=== PATIENT | female | born 1960 | race Caucasian/White ===

== ENCOUNTER 2017-09-27 | Emergency (ER) | payer MEDICARE ==
[2015-06-22 14:33] VITALS: BMI 31.1
[~2017-09-27] MED LIST: AMBIEN10 MG PO; ATIVAN1 MG PO; CYCLOBENZAPRINE10 MG PO; EPIPEN0.3 MG/0.3 IM; FLUTICASONE PRO16 GM NS; HYDROCHLOROTHIA25 MG PO; LATUDA40 MG PO; MARINOL5 MG PO; MAXZIDE-25 MG T1 TAB PO; MEDROL DOSE PACK4 MG PO; NEURONTIN 300300 MG PO; NORCO 5/325 TAB1 TA1 PO; NUCYNTA50 MG PO; TALWIN NX1 TAB PO; VENTOLIN HFA18 GM INH; ZETIA10 MG PO; ZOLOFT100 MG PO
[2017-09-27 00:30] LABS: HEMATOCRIT 44.2 % (36.0-48.0); HEMOGLOBIN 15.1 g/dL (12-16); MCH 32.3 pg (26.0-34.0); MCHC 34.2 g/dL (31.0-37.0); MCV 94.6 fL (80.0-100.0); MEAN PLATELET VOLUME 8.9 fL (7.4-10.4); NEUTROPHILS 61.6 % (40-80); PLATELET COUNT 252 10x3/uL (130-400); RBC 4.67 10x6/uL (4.00-5.40); RDW 13.1 % (11.5-14.5); WBC 10.9 10x3/uL (4.8-10.8)
[2017-09-27 00:53] LABS: ALBUMIN 3.6 g/dL (3.4-5.0); ALKALINE PHOSPHATASE 163 U/L (46-116); ALT (SGPT) 32 U/L (10-68); CALC OSMOLALITY 282 mosm/kg (275-300); CARBON DIOXIDE 30.8 mmol/L (21.0-32.0); CHLORIDE - SERUM 105 mmol/L (98-107); CREATININE - SERUM 0.6 mg/dL (0.6-1.3); GLUCOSE 105 mg/dL (74-106); PROTEIN - SERUM 7.3 g/dL (6.4-8.2); SODIUM 143 mmol/L (136-145); UREA NITROGEN 8 mg/dL (7-18); eGFR NON AFRICAN AMERICAN > 90 mL/min (90-120)
[2017-09-27 01:05] LABS: CHOL - HDL RATIO 8.4 ratio (2.3-4.1); CHOLESTEROL, TOTAL 268 mg/dL (0-200); CKMB 0.4 U/L (0.0-3.6); CREATINE KINASE 60 UL (21-215); HDL CHOLESTEROL 32 mg/dL (32-96); LDL CHOLESTEROL 196 mg/dL (0-100); LDL-HDL RATIO 6.1 ratio (1.5-3.5); PRO BNP 63 pg/mL (0-125); TRIGLYCERIDE 201 mg/dL (30-200); TROPONIN-I < 0.017 ng/mL (0.000-0.060)
[2017-09-27 01:36] LABS: APPEARANCE CLEAR (CLEAR); BILIRUBIN NEGATIVE (NEGATIVE); COLOR YELLOW (YELLOW); GLUCOSE NEGATIVE (NEGATIVE); KETONE NEGATIVE (NEGATIVE); NITRITE NEGATIVE (NEGATIVE); PROTEIN NEGATIVE (NEGATIVE); UROBILINOGEN NORMAL (NORMAL)
[2017-09-27 01:37] LABS: BACTERIA FEW /hpf (NONE SEEN); EPITHELIAL CELLS 0-5 /hpf (0-5); RED CELLS - URINE 0-5 /hpf (0-5); WHITE CELLS - URINE 0-5 /hpf (0-5)
== END 2017-09-27 04:35 | disposition home or self-care (01) ==
LOC: D.ER
PROVIDERS: Family Medicine
DX: M94.0 Chondrocostal junction syndrome [Tietze] (principal); F17.200 Nicotine dependence, unspecified, uncomplicated

== ENCOUNTER 2018-03-02 08:00 | Outpatient (CLI) | payer MEDICARE ==
[2015-06-22 14:33] VITALS: BMI 31.1
== END 2018-03-02 11:18 | disposition home or self-care (01) ==
LOC: D.MAMMO 08:00
DX: Z12.31 Encounter for screening mammogram for malignant neoplasm of breast (principal)

== ENCOUNTER 2019-07-15 17:33 | Observation (INO) | payer MEDICARE ==
[~2019-07-15] VITALS: Ht 152.4 cm; Wt 72.3 kg
--- NOTE | ~2019-07-15 | HEMODYNAMI ---
PATIENT:CARMELO SANABRIA MEDICAL RECORD: [id number] : 56 LOCATION[id number] ADMISSION DATE: 07/15/19 Generatedon:07/16/201915:57 Patient name: CARMELO SANABRIA Patient #: [id number] SSN: DO B: 1960 Date of study: 07/16/2019 Page: Of Hemodynamic Procedure Report Patient Data Patient Demographics Procedure consent was obtained First Name: CARMELO Gender: Female Last Name: DANIELE : 1960 Middle Initial: CRUZ Age: 59 year(s) Patient #: [id number] Race: Additional ID: [id number] Contact details Address: [place] [address] State: [place] City: [place] Zip code: [address] Past Medical History Allergies Allergen Reaction Date Comments Reported Other allergy 07/16/2019 BUPIVICAINE, LIDOCAINE, DILAUDID, DEMEROL, TYLENOL FENTANYL, HYRDROCONE, NSAIDS, OXYCODONE, PCN, TRAMADOL, TIZANADINE, ESCITALOPRAM, PLAVIX Admission Admission Data Admission Date: 07/15/2019 Admission Time: 21:01 Arrival Date: 07/16/2019 Arrival Time: 0:00 Room #: [facility] Height (in.): 60 BSA: 1.69 (m2) Height (cm.): 152.4 BMI: 31 (kg/m2) Weight (lbs.): 158.73 Weight (kg.): 72 Lab Results Lab Result Date: 07/16/2019 Lab Result Time: 0:00 Biochemistry Name Units Result Min Max BUN mg/dl 10 --(-*--)-- 7 18 Creatinine mg/dl 0.8 --(-*--)-- 0.6 1.3 eGFR ml/min 76.69328 *-(----)-- 90 120 NONAFRICAN CBC Name Units Result Min Max Hematocrit % 46.9 --(-*--)-- 42 54 Hemoglobin g/dl 15.4 --(-*--)-- 13.5 17.5 Procedure Procedure Types Cath Procedure Diagnostic Procedure [facility] w/Coronaries Sedation Charges Moderate Sedation up to 15 minutes PCI Procedure Coronary Stent Coronary Stent Initial x2 Procedure Description Procedure Date Procedure Date: 07/16/2019 Procedure Start Time: 15:23 Procedure End Time: 15:51 Procedure Staff Name Function Sung Jacobson MD Performing Physician Roopa Nava RT Monitor Mirian Gallagher RT Scrub Tc Gordon RN Nurse Procedure Data Cath Procedure Fluoroscopy Diagnostic fluoroscopy Total fluoroscopy Time: 6.4 time: 6.4 min min Diagnostic fluoroscopy Total fluoroscopy dose: 602 dose: 602 mGy mGy Contrast Material Contrast Material Type Amount (ml) Isovue 300 138 Entry Location Entry Primary Successful Side Size Upsize Upsize Entry Closure Greenberg ccessful Closure Location (Fr) 1 (Fr) 2 (Fr) Remarks Device Remarks Radial Right 6 Fr Mechanical artery Short Compression Estimated blood loss: 10 ml Diagnostic catheters Device Type Used For End Catheter Placement DIAGNOSTIC [place] 110cm 5 Procedure Fr catheter ([id number]) Procedure Complications No complications Procedure Medications Medication Administration Route Dosage Oxygen etCO2 Nasal cannula 2 l/min Heparin Flush Bag added to field 2 bags (1000units/500ml NS) 0.9% NaCl I.V. 100 ml/hr Versed I.V. 2 mg Versed I.V. 2 mg Versed I.V. 2 mg Integrilin (Bolus I.V. 6.8 ml 2mg/ml) Versed I.V. 2 mg Heparin Bolus I.V. 4000 units Versed I.V. 2 mg Effient P.O. 60 mg Hemodynamics Rest BSA: 1.69 (m2) HGB: 15.4 (g/dl) O2 Consumption: Estimated: 171.23 (ml/min) O2 Co nsumption indexed: Estimated:101.32 (ml/min/m) Heart Rate: 88 (bpm) Snapshots Pre Cath Intra NCS Post Cath Vital Signs Time Heart Resp SPO2 etCO2 NIBP (mmHg) Rhythm Pain Sedation Rate (ipm) (%) (mmHg) Status Level (bpm) 15:16:15 88 20 100 38.5 149/89(115) NSR 0 (11) 10(A) , No pain 15:20:27 85 22 100 40 156/91(110) NSR 0 (11) 10(A) , No pain 15:24:41 86 22 99 40 130/85(100) NSR 0 (11) 10(A) , No pain 15:28:51 88 22 96 37.8 135/78(108) NSR 0 (11) 10(A) , No pain 15:32:59 86 23 96 36.3 139/84(100) NSR 0 (11) 9(A) , No pain 15:37:09 91 21 99 38.5 160/85(121) NSR 0 (11) 10(A) , No pain 15:41:25 90 22 99 34.7 168/94(136) NSR 0 (11) 9(A) , No pain 15:45:41 86 22 100 39.2 163/91(126) NSR 0 (11) 10(A) , No pain 15:49:59 87 21 100 40 156/84(105) NSR 0 (11) 10(A) , No pain Medications Time Medication Route Dose Verified Delivered Reason Notes Effectiveness by by 15:15:34 Oxygen etCO2 2 Sung Buffie used for Nasal l/min Kavon Gordon RN procedure cannula 15:15:47 Heparin Flush added 2 Sung Buffie used for Bag to bags Kavon Gordon RN procedure (1000units/500ml field NS) 15:15:55 0.9% NaCl I.V. 100 Sung Buffie Per physician ml/hr Kavon Gordon RN 15:23:37 Versed I.V. 2 mg Sung Buffie for sedation Kavon Gordon RN 15:25:36 Versed I.V. 2 mg Sung Buffie for sedation Kavon Gordon RN 15:27:37 Versed I.V. 2 mg Sung Buffie for sedation Kavon Gordon RN 15:29:59 Heparin Bolus I.V. 4000 Sung Wallaceie for verif ied units Kavon Gordon RN anticoagulation with dr jacobson 15:34:52 Integrilin I.V. 6.8 Sung Buffie for waste d (Bolus 2mg/ml) ml Kavon Gordon RN antiplatelet 3.2 ml therapy of vial 15:40:38 Versed I.V. 2 mg Sung Buffie for sedation Kavon Gordon RN 15:44:42 Versed I.V. 2 mg Sung Montez for sedation Kavon Gordon RN 15:49:13 Effient P.O. 60 mg Sung Montez for Kavon Gordon RN antiplatelet therapy Procedure Log Time Note 14:42:31 Informed consent obtained and on chart 14:43:29 Tc Gordon RN sent for patient. Start room use. 14:43:31 Procedure Status Urgent Heart Cath (IP). 14:43:32 Time tracking: Regular hours (M-F 7:00 - 5:00) 14:43:36 Plan of Care:Hemodynamics will remain stable., Cardiac rhythm will remain stable., Comfort level will be maintained., Respiratory function will remain adequate., Patient/ family verbilizes understanding of procedure., Procedure tolerated without complication., Recovers from procedure without complications.. 14:45:01 Lab Result : BUN 10 mg/dl 14:45:01 Lab Result : Creatinine 0.8 mg/dl 14:45:01 Lab Result : eGFR NONAFRICAN 76.46842 ml/min 14:45:01 Lab Result : Hemoglobin 15.4 g/dl 14:45:01 Lab Result : Hematocrit 46.9 % 14:45:51 Patient Weight : 158.73 lbs 14:45:53 Patient Height : 60 inches 14:46:01 Arrival Date: 07/16/2019 12:00:00 AM 14:53:10 Stress Test: no; N/A ? 14:53:13 Risk of Mortality: .1 14:53:16 Risk of blood transfusion: .8 14:53:20 Risk of PRAKASH: 1.5 14:54:35 Patient allergic to Other allergyBUPIVICAINE, LIDOCAINE, DILAUDID, DEMEROL, TYLENOL FENTANYL, HYRDROCONE, NSAIDS, OXYCODONE, PCN, TRAMADOL, TIZANADINE, ESCITALOPRAM, PLAVIX 15:15:03 Patient received from Med II to CCL 1 Alert and oriented. Tansferred to table in Supine position. 15:15:04 Warm blankets applied, and karo hugger turned on for patient comfort. 15:15:04 Correct patient and procedure confirmed by team. 15:15:05 ECG and BP/O2 sat monitors applied to patient. 15:15:05 Vital chart was started 15:15:06 Baseline sample Acquired. 15:15:09 Rhythm: sinus rhythm 15:15:11 Full Disclosure recording started 15:15:12 Pre-procedure instructions explained to patient. 15:15:13 Pre-op teaching completed and patient verbalized understanding. 15:15:15 Family in patients room. 15:15:16 Patient NPO since Midnight. 15:15:18 Is patient on blood thinner?No 15:15:20 Is the patient allergic to Iodine/contrast media? No. 15:15:24 Patient diabetic? No. 15:15:28 Patient not . Patient is over age 55. 15:15:30 Previous problem with sedation/anesthesia? No ? 15:15:32 Snore? Yes 15:15:34 Oxygen 2 l/min etCO2 Nasal cannula was administered by Tc Gordon RN; used for procedure; Verbal order read back and verified. 15:15:34 Sleep apnea? No 15:15:35 Deviated septum? No 15:15:37 Opens mouth fully? Yes 15:15:39 Sticks out tongue? Yes 15:15:42 Airway obstruction? No ? 15:15:45 Dentures? No ? 15:15:47 Heparin Flush Bag (1000units/500ml NS) 2 bags added to field was administered by Tc Gordon RN; used for procedure; Verbal order read back and verified. 15:15:48 Pre procedure: right dorsailis pedis pulse 1+ Palpable, but thready & weak; easily obliterated 15:15:50 Modified Bentley's test Ulnar < 7 seconds 15:15:53 Patient pain scale 0/10 ?. 15:15:55 0.9% NaCl 100 ml/hr I.V. was administered by Tc Gordon RN; Per physician; Verbal order read back and verified. 15:16:05 IV patent on arrival in left antecubital with 0.9% NaCl at [facility]. 15:16:07 Lab results completed and on chart. 15:16:11 Right Radial & Right Groin area was prepped with chlora-prep and draped in sterile fashion 15:16:12 Alarms reviewed by R. N. 15:16:12 Sharps counted by scrub and verified by R.N. 15:21:06 Use device set Radial Dx or PCI 15:21:07 ACIST Syringe (45657) opened to sterile field. 15:21:08 Bag Decanter () opened to sterile field. 15:21:08 ACIST Hand Control (43764) opened to sterile field. 15:21:08 ACIST Manifold (45911) opened to sterile field. 15:21:09 Tegaderm 4 x 4 (1626W) opened to sterile field. 15:21:10 Medline Cath Pack ([id number]) opened to sterile field. 15:21:11 MBrace Wrist Support ([id number]) opened to sterile field. 15:21:12 EMERALD Guide Wire (420-582) opened to sterile field. 15:21:13 SHEATH 6FR RAIN (4632941) opened to sterile field. 15:22:04 --------ALL STOP TIME OUT------ 15:22:05 Final Timeout: patient, procedure, and site verified with staff and physician. All members of the team are in agreement. 15:22:07 Right Radial & Right Groin site verified by team. 15:22:10 Fire Safety Assessment: A--An alcohol-based skin anteseptic being used preoperatively., C--Open oxygen or nitrous oxide is being used., D--An ESU, laser, or fiber-optic light is being used. 15:22:12 Physical assessment completed. ASA score P 2 - A patient with mild systemic disease as per Sung Jacobson MD. 15:22:25 2) 60-89 Mildly reduced kidney function, and other findings (as for stage 1) point to kidney disease. 15:22:30 Maximum allowable contrast dose (3.7 X eGFR X 0.75)214 ml. 15:22:33 Sedation plan: IV Moderate Sedation Medication:Versed 15:23:37 Versed 2 mg I.V. was administered by Tc Gordon RN; for sedation; Verbal order read back and verified. 15:23:49 Procedure started. 15:24:06 LIDOCAINE IS NOT USED TO DUE PT. ALLERGY 15:25:36 Versed 2 mg I.V. was administered by Tc Gordon RN; for sedation; Verbal order read back and verified. 15:25:41 A 6 Fr Short sheath was inserted into the Right Radial artery 15:27:00 Zero performed for pressure channel P1 15:27:03 Zero performed for pressure channel P1 15:27:21 A DIAGNOSTIC [place] 110cm 5 Fr catheter (740484) was advanced over the wire and used for Procedure. 15:27:29 LV gram done using MANDUJANO 15:: Injector settings: Ml/sec: 5, Volume: 15, 15:27:37 Versed 2 mg I.V. was administered by Tc Gordon RN; for sedation; Verbal order read back and verified. 15:27:50 EF : 65 % 15:28:12 RCA angiography performed. 15:28:53 LCA angiography performed. 15::56 Catheter exchanged over wire. 15:29:28 INFLATOR Merit BasixCompak (MJ1273) opened to sterile field. 15:29:38 GUIDE 6FR XBLAD 3.5 SH catheter ([id number]) opened to sterile field. 15:29:39 GUIDE 6FR AR 1.0 SH catheter ([id number]) opened to sterile field. 15:29:52 WHISPER 190cm wire ([id number]) opened to sterile field. 15:29:59 Heparin Bolus 4000 units I.V. was administered by Tc Gordon RN; for anticoagulation; verified with dr jacobson Verbal order read back and verified. 15:30:22 Proceeding to intervention. 15:30:30 ACCDominant side:Left 15:31:23 6 Fr XBLAD 3.5 guide catheter was inserted over the wire 15:31:35 Pre PCI Site: [place] Ramus has 90% stenosis. 15:33:06 WHISPER 190 wire advanced. 15:33:14 WHISPER REMOVED 15:33:24 CHOICE PT Extra Support 182cm wire ([id number]) opened to sterile field. 15:33:28 CHOICE ES 182 wire advanced. 15:34:37 Wire advanced across lesion. 15:34:52 Integrilin (Bolus 2mg/ml) 6.8 ml I.V. was administered by Tc Gordon RN; for antiplatelet therapy; wasted 3.2 ml of vial Verbal order read back and verified. 15:34:55 Place stent Inflation Number: 1 A LIZ RX 2.25 x 22 stent ([id number]) was prepped and advanced across the Ramus . The stent was deployed at 13 MYRANDA for 0:10 (min:sec) . 15:35:17 Stent catheter was removed intact over wire. 15:35:18 Wire removed. 15:35:18 Guide catheter removed. 15:35:30 Pre PCI Site: [place] mLAD has 95% stenosis. 15:35:32 GUIDE 6FR EBU 3.0 SH catheter ([id number]) opened to sterile field. 15:35:49 6 Fr EBU 3 SH guide catheter was inserted over the wire 15:36:58 CHOICE ES 182 wire advanced. 15:38:03 Wire advanced across lesion. 15:39:15 Place stent Inflation Number: 1 A LIZ RX 2.5 x 15 stent ([id number]) was prepped and advanced across the Mid LAD . The stent was deployed at 13 MYRANDA for 0:10 (min:sec) . 15:39:43 Inflation number: 2 The stent balloon was then re-inflated across the Mid LAD to 21 MYRANDA for 0:10 (min:sec) . 15:40:05 Stent catheter was removed intact over wire. 15:40:06 Wire removed. 15:40:08 Guide catheter removed. 15:40:15 Pre PCI Site: [place] mRCA has 90% stenosis. 15:40:28 6 Fr AR 1 SH guide catheter was inserted over the wire 15:40:38 Versed 2 mg I.V. was administered by Tc Gordon RN; for sedation; Verbal order read back and verified. 15:43:02 CHOICE ES 182 wire advanced. 15:43:04 Wire advanced across lesion. 15:44:28 Place stent Inflation Number: 1 A LIZ RX 2.25 x 26 stent ([id number]) was prepped and advanced across the Mid RCA . The stent was deployed at 17 MYRANDA for 0:10 (min:sec) . 15:44:39 Stent catheter was removed intact over wire. 15:44:41 Wire removed. 15:44:41 Guide catheter removed. 15:44:42 Versed 2 mg I.V. was administered by Tc Gordon RN; for sedation; Verbal order read back and verified. 15:45:34 Procedure ended.(Physican Out) 15:45:36 ZEPHYR REGULAR TR BAND (146701) opened to sterile field. 15:45:45 Sheath removed intact; hemostasis achieved with Mechanical Compression to the Right Radial artery. 15:46:38 Fluoroscopy time 06.40 minutes. 15:46:43 Fluoroscopy dose: 602 mGy 15:46:43 Flurop Dose total: 602 15:46:48 Dose Area Product 69273 mGy/cm. 15:46:53 Contrast amount:Isovue 300 138ml. 15:46:56 Maximum allowable dose exceeded? No. 15:46:57 Sharps counted by scrub and verified by R.N. 15:47:07 [place] band inflated with 10cc of air. 15:47:10 Post-procedure physical assessment completed. ASA score P 2 - A patient with mild systemic disease as per Sung Jacobson MD. 15:47:13 Post procedure rhythm: sinus rhythm 15:47:16 Estimated blood loss: 10 ml 15:47:18 Post procedure instruction explained to patient.Patient verbalizes understanding. 15:47:19 Patient needs reinforcement of post procedure teaching. 15:47:43 Procedure type changed to Cath procedure, Diagnostic procedure, LHC, [facility] w/Coronaries, Sedation Charges, Moderate Sedation up to 15 minutes, PCI procedure, Coronary Stent, Coronary Stent Initial x2 15:48:47 Procedure and supply charges have been captured, reviewed, submitted and are correct. 15:48:50 Procedure Complication : No complications 15:48:53 [facility] Findings: MVD- PCI performed (see procedure note) 15:48:55 Operative report dictated upon procedure completion. 15:48:55 See physician's report for complete and final results. 15:49:13 Effient 60 mg P.O. was administered by Tc Gordon RN; for antiplatelet therapy; Verbal order read back and verified. 15:50:04 Vital chart was stopped 15:50:10 Report given to [facility]. 15:50:13 Patient transfered to [facility] with Bed. 15:50:29 ACT drawn and resulted at >400 seconds. (normal therapeutic range 180-240 seconds). 15:51:14 Procedure ended. 15:51:14 Full Disclosure recording stopped 15:51:17 End room use (Document Last) Intervention Summary Intervention Notes Time ActionType Lesion and Equipment Used Action# Pressure Duration Attributes 15:34:55 Place stent Ramus LIZ RX 2.25 x 1 13 00:10 22 stent ([id number]) 15:39:15 Place stent Mid LAD LIZ RX 2.5 x 1 13 00:10 15 stent ([id number]) 15:39:43 Reinflate Mid LAD LIZ RX 2.5 x 2 21 00:10 stent 15 stent balloon ([id number]) 15:44:28 Place stent Mid RCA LIZ RX 2.25 x 1 17 00:10 26 stent ([id number]) Device Usage Item Name Manufacture Quantity Catalog Number Hospital Part Current M inimal Lot# / Charge Number Stock Stock Serial# Code ACIST Syringe Acist 1 02652 301636 263459 085047 2 0 (90666) Medical Systems Inc Bag Decanter Microtek 1 2001S 555407 21995 152028 5 (2001S) Medical Inc. ACIST Hand Acist 1 00824 291058 882464 587090 5 Control Medical (29245) Systems Inc ACIST Manifold Acist 1 52636 713826 504148 246568 5 (92509) Medical Systems Inc Tegaderm 4 x 4 3M 1 1626W 263701 035215 388721 5 (1626W) Medline Cath Medline 1 [id number] 792192 63799 689695 5 Pack ([id number]) MBrace Wrist Advanced 1 140-0250-00 438543 14451 801155 5 Support Vascular (720608573) Dynamics EMERALD Guide Cardinal 1 502-455 393905 847837 266747 5 Wire (502-455) Health SHEATH 6FR Cardinal 1 0129036 376003 7748204 430732 5 RAIN (2438449) Health DIAGNOSTIC Terumo 1 40-5013 931309 756224 097967 5 [place] 110cm 5 Fr catheter (675889) INFLATOR Merit Merit 1 GQ3905 408211 417117 450796 1 5 TrackR (VQ7520) GUIDE 6FR Cardinal 1 08588020 103476 770331 561318 3 XBLAD 3.5 [facility] catheter (97221169) GUIDE 6FR AR Medtronic 1 [id number] 845164 50801 400216 1 1.0 catheter ([id number]) WHISPER 190cm S[place]ey 1 [id number] 997015 149432 954628 5 wire Vascular (0334624QQ) CHOICE PT [place] 1 [id number] 281600 318438 863943 5 Extra Support Scientific 182cm wire ([id number]) LIZ RX 2.25 x Medtronic 1 [id number] 569219 7950303 377106 5 [id number] 22 stent ([id number]) GUIDE 6FR EBU Medtronic 1 [id number] 286644 79538 784161 0 3.0 SH catheter ([id number]) LIZ RX 2.5 x Medtronic 1 [id number] 930701 8424247 100266 5 [id number] 15 stent ([id number]) LIZ RX 2.25 x Medtronic 1 [id number] 748472 1945890 266655 5 [id number] 26 stent ([id number]) ZEPHYR REGULAR Cardinal 1 003688 027293 3635272 152431 [address] [facility] urturn (227675) Signature Audit [place] Stage Time Signature Unsigned Intra-Procedure 07/16/2019 Roopa Nava 3:56:03 PM RT(R) Intra-Procedure 07/16/2019 Tc Gordon RN 3:56:38 PM Intra-Procedure 07/16/2019 Sung Jacobson 3:57:23 PM [facility] [address] [facility] [place] [address]
[2019-07-15 17:58] LABS: BASOPHILS 0.2 % (0-2); EOSINOPHILS 0.8 % (0-7); HEMATOCRIT 46.9 % (36.0-48.0); HEMOGLOBIN 15.4 g/dL (12-16); IMMATURE GRANULOCYTES 0.2 % (0-5); LYMPHOCYTES 21.3 % (15-50); MCH 33.4 pg (26.0-34.0); MCHC 32.8 g/dL (31.0-37.0); MCV 101.7 fL (80.0-100.0); MEAN PLATELET VOLUME 9.5 fL (7.4-10.4); MONOCYTES 5.5 % (2-11); RBC 4.61 10x6/uL (4.00-5.40); RDW 13.9 % (11.5-14.5); WBC 12.3 10x3/uL (4.8-10.8)
[2019-07-15 17:59] LABS: PLATELET COUNT 305 10x3/uL (130-400)
[2019-07-15 18:11] LABS: CALC OSMOLALITY 280 mosm/kg (275-300); CALCIUM 8.9 mg/dL (8.5-10.1); CARBON DIOXIDE 28.1 mmol/L (21.0-32.0); CHLORIDE - SERUM 103 mmol/L (98-107); CREATININE - SERUM 0.8 mg/dL (0.6-1.3); GLUCOSE 118 mg/dL (74-106); POTASSIUM - SERUM 3.5 mmol/L (3.5-5.1); SODIUM 141 mmol/L (136-145); UREA NITROGEN 10 mg/dL (7-18); eGFR NON AFRICAN AMERICAN 77 mL/min (90-120)
[2019-07-15 18:17] LABS: APTT 35.6 SECONDS (22.8-39.4); INR 0.95 (0.85-1.17); PROTIME 12.2 SECONDS (11.6-15.0)
[2019-07-15 18:25] LABS: ALBUMIN 3.4 g/dL (3.4-5.0); ALKALINE PHOSPHATASE 145 U/L (46-116); ALT (SGPT) 34 U/L (10-68); BILIRUBIN - TOTAL 0.28 mg/dL (0.2-1.3); CKMB 0.2 U/L (0.0-3.6); CREATINE KINASE 47 UL (21-215); MAGNESIUM - SERUM 1.8 mg/dL (1.8-2.4); PROTEIN - SERUM 7.6 g/dL (6.4-8.2); TROPONIN-I < 0.017 ng/mL (0.000-0.060)
[2019-07-15 21:34] LABS: CKMB 0.1 U/L (0.0-3.6); CREATINE KINASE 41 UL (21-215); TROPONIN-I 0.021 ng/mL (0.000-0.060)
[2019-07-15] MEDS ORDERED: SYNTHROID25 MCG PO (22:38)
[2019-07-15] MEDS ORDERED: TRIAMTERENE-HC1 EAC6 (22:39)
[2019-07-15] MEDS ORDERED: ALBUTEROL SULF8.5 GM (22:40)
[2019-07-15 23:31] VITALS: BP 146/71; BMI 31.1
[2019-07-16 04:00] VITALS: BP 102/56
[2019-07-16 04:42] LABS: CREATINE KINASE 35 UL (21-215)
[2019-07-16 04:51] LABS: TROPONIN-I < 0.017 ng/mL (0.000-0.060)
--- NOTE | 2019-07-16 06:06 | NUR ---
ASSESSMENT DONE. DENIES NEEDS
[2019-07-16 07:29] VITALS: BP 124/74
--- NOTE | 2019-07-16 08:07 | NUR ---
I have reviewed this patient and I concur with the Shift Assessment completed by the Licensed Practical Nurse today this shift.
[2019-07-16 09:30] VITALS: Ht 152.4 cm; Wt 72.3 kg
[2019-07-16 11:34] VITALS: BP 125/66
--- NOTE | 2019-07-16 15:55 | HP ---
PATIENT: CARMELO LISA MEDICAL RECORD: [id number] ACCOUNT: [id number] LOCATION:[address] : 56 ADMISSION DATE: 07/15/19 PCP: JOCE MITCHELL MD HISTORY AND PHYSICAL EXAMINATION DIAGNOSES: 1. Chest pain. 2. Hypertension. HISTORY OF PRESENT ILLNESS: Ms. Lisa has no history of ischemic heart disease. She began having chest pain this week. Many typical components for angina. It was a pressure, squeezing sensation. Atypical in that would come on at rest, but would not come on with exertion. It got very severe yesterday, radiating down her left arm and up into her jaw. She presented to Dr. Batista's office. This was more of a typical anginal pain that she was having then at rest. She was transferred to the Emergency Room. It was relieved with sublingual nitro. She is not having chest pain this morning. She did have episodes during the night as well. Her troponins are normal. Her EKG with no ST-T changes. PHYSICAL EXAMINATION: CONSTITUTIONAL/GENERAL APPEARANCE: Well nourished, well developed, appears stated age. EYES: Lids and conjunctivae noninjected. No discharge. No pallor. ENT: Lips within normal limit. No cyanosis. No pallor. NECK: Carotid arteries, bilateral normal upstroke. No bruits. No thrills. No jugular venous pressure or distention. CERVICAL LYMPH NODES: Nontender. Nonenlarged. THYROID: Not enlarged. No nodules. CARDIOVASCULAR: Precordial exam, nondisplaced. No heaves or pericardial thrills. Rate and rhythm, regular. Heart sounds, normal S1, normal S2. No S3, no gallop, no rub. Systolic murmur, not heard. Diastolic murmur, not heard. RESPIRATORY: Respiratory effort, unlabored. Normal curvature. No thoracic deformity. No chest wall tenderness. Percussion, resonant. Auscultation, clear. No wheezes, no rales, no rhonchi. ABDOMEN: Soft, nondistended, nontender. No abdominal pain, no vomiting and normal appetite. MUSCULOSKELETAL: No joint tenderness, normal gait, normal tone. SKIN: Warm and dry. OVERALL IMPRESSION: Chest pain compatible with angina. Many typical components for angina, atypical in that it has been coming at rest, but it has been escalating in an unstable fashion. We will risk stratify with stress testing, Cardiolite imaging. TRANSINT:[id number] Voice Confirmation ID: [id number] DOCUMENT ID: [id number] HISTORY AND PHYSICAL [id number] CARMELO LISA, LAURIE CARO at 1555 CC: [id number] DICTATION DATE: 07/16/19930 MANAGER AUTOMOTIVE: 07/16/19 1040 ADM IN [place] [id number] [place] [id number]
--- NOTE | 2019-07-16 16:10 | NUR ---
RECIVED FROM DELIMER PER BED, V-BAND TO RT WRIST
[2019-07-16] MEDS ORDERED: BAYER CHEWABLE81 MG PO (16:50)
[2019-07-16] MEDS ORDERED: PRAVACHOL20 MG PO (16:51)
[2019-07-16] MEDS ORDERED: EFFIENT10 MG PO (16:51)
--- NOTE | 2019-07-16 17:00 | NUR ---
SM HARD SPOT NOTED TO RT WRIST, BAND REAJUSTED.
--- NOTE | 2019-07-16 18:38 | NUR ---
WRIST SOFT AT THIS TIME.
[2019-07-16 20:00] VITALS: BP 147/88
--- NOTE | 2019-07-16 20:46 | NUR ---
INITAIL ROUNDS COMPLETED AT 1909 HRS. PT DEMANDING AIR BE LET OUT OF TR BAND. INFORMED PT THAT WILL TAKE 1/2 AIR OUT AT 1929. PT VERY UNHAPPY. 1/2 AIR REMOVED AT 1934. PT HAD THROWN A GLASS OF ICE TEA AGAINST WALL AIR WAS NOT REMOVED AT 1929 HRS. IV TO LAC SL. LUNGS CTA. R WRIST TENDER WITH SOME BRUISING NOTED. AREA SOFT WITH PALPABLE RADIAL PULSE. NO BLEEDING NOTED AFTER 10 MINUTES. REMAINDER OF AIR REMOVED AT 2004 HRS. NO BLEEDING,, SWELLING OR INCREASED BRUISING NOTED AFTER 10 MINUTES. DRESSING APPLIED. IV TO LAC DC'D WITH CATHETER INTACT. MONITOR REMOVED. NO CAHNGE TO R WRIST AT 2034 HRS. DC INSTRUCTIONS GIVEN AND EXPLAINED TO PT. INFORMED PT TO WEAR WRIST SPLINT OVERNIGHT. INFORMED IF WRIST BEGINS TO BLEED TO HOLD PRESSURE FOR 5-1O MINUTES. INFORMED TO CALL OR COME BACK TO ER IF BLEEDING WON'T STOP OR HAS INCREASED SWELLING TO WRIST. STATED UNDERSTANDING. TO POV VIA W/C.
--- NOTE | 2019-07-16 21:05 | NUR ---
STATED HE FILLED RX AT [facility].
--- NOTE | 2019-07-21 14:07 | OP ---
PATIENT NAME: CARMELO SANABRIA MEDICAL RECORD: [id number] :56 LOCATION:D[address].2121 ADMISSION DATE:07/15/19 SURGEON: LAURIE KATE MD DATE OF OPERATION: 07/16/2019 PROCEDURES: 1. PTCA stent LAD. 2. PTCA stent RCA. 3. PTCA stent left circumflex, ramus intermedius. INDICATION: Unstable angina and coronary artery disease. PROCEDURE IN DETAIL: After informed consent was obtained and after a detailed description of the risks, benefits as well as alternative therapies, the patient elected to proceed with angiogram and angioplasty. The right radial area was prepped and draped in normal sterile fashion. Right radial artery was cannulated via modified Seldinger technique with placement of 6-Sammarinese sheath. All catheters exchanged through this sheath. FINDINGS: Left ventriculogram was performed in standard 30-degree MANDUJANO view, reveals good cardiac wall motion, ejection fraction is 60%. SELECTIVE CORONARY ANGIOGRAPHY: 1. Left main is with no significant angiographic disease. 2. Left anterior descending has 99% stenosis in the mid vessel. 3. The left circumflex has a ramus intermedius with 90% stenosis proximally. 4. Right coronary artery has 90% stenosis in the mid vessel. PTCA STENT OF THE LAD: The stent used was a 2.5 x 15 mm [place]. Result was 0% residual stenosis. PTCA STENT OF THE RAMUS INTERMEDIUS: The stent used was a 2.25 x 22 mm [place]. Result was 0% residual stenosis. PTCA STENT OF THE RCA: The stent used was a 2.25 x 26 mm [place]. Result was 0% residual stenosis. OVERALL IMPRESSION: Successful percutaneous transluminal coronary angioplasty stent, LAD, circumflex and ramus intermedius all going from 90% to 99% initial stenosis to 0% residual. TRANSINT:[id number] Voice Confirmation ID: [id number] DOCUMENT ID: [id number] LAURIE KATE MD at 1407 CC: [id number] DICTATION DATE: 07/16/19 1553 CLINICAL QUALITY ASSURANCE SPECIALIST: 07/16/19 1724 DIS IN 07/16/19 [place] [id number] [place] [address]
--- NOTE | 2019-07-21 14:07 | PN ---
PATIENT:CARMELO LISA MEDICAL RECORD: [id number] LOCATION:D. D.212 ADMISSION DATE: 07/15/19 PROGRESS NOTE DATE OF SERVICE: 07/16/2019 DAILY NOTE Mrs. Lisa was admitted with chest discomfort, ruled out for myocardial infarction. She continued to have episodes of chest discomfort overnight. She has continued to have episodes of chest discomfort this morning. In conjunction with her nuclear stress test, her nuclear stress test was abnormal with perfusion defect inferoapically with continued chest discomfort and the perfusion defect. We will proceed with coronary angiography. The patient understands and agrees. TRANSINT:[id number] Voice Confirmation ID: [id number] DOCUMENT ID: [id number] LAURIE KATE MD at 1407 CC: [id number] DICTATION DATE: 07/16/19 1337 FUR MACHINE OPERATOR: 07/16/19 1434 DIS IN 07/16/19 [facility] [address] [place] [address]
--- NOTE | 2019-07-21 14:07 | ST ---
PATIENT:CARMELO SANABRIA MEDICAL RECORD: [id number] SEX: F LOCATION:D. D.212 ORDER #: ADMISSION DATE: 07/15/19 AGE OF PATIENT: 59 REFERRING PHYSICIAN: INTERPRETING PHYSICIAN: LAURIE KATE MD DATE OF SERVICE: 07/16/2019 PROCEDURE: Nuclear stress test. INDICATION: Chest pain compatible with angina. She was exercised on standard Lexiscan protocol with 31 mCi of sestamibi injected at peak stress. FINDINGS: Gated SPECT reveals preserved ejection fraction greater than 70% with good wall motion and thickening and brightening throughout all segments. SPECT imaging Cardiolite was used as myocardial perfusion agent. There is a definite perfusion defect inferoapically as well as apically. This includes inferoapical and apical segments. The perfusion defect is severe. The amount of myocardium involved is small to moderate. OVERALL IMPRESSION: 1. This is an abnormal stress only nuclear stress test with definite perfusion defect inferiorly, apically. 2. Gated SPECT reveals preserved ejection fraction greater than 70%. In this patient with ongoing symptomatology, the current scan does suggest presence of hemodynamically significant coronary artery disease. TRANSINT:[id number] Voice Confirmation ID: [id number] DOCUMENT ID: [id number] LAURIE KATE MD at 1407 CC: [id number] DICTATION DATE: 07/16/19 1336 LABORATORY CLERK: 07/17/19 0647 DIS IN 07/16/19 [facility] [address] [place] [address]
--- NOTE | 2019-08-11 11:17 | DS ---
PATIENT:CARMELO LISA :56 MEDICAL RECORD: [id number] DISCHARGE SUMMARY ADMISSION DATE: 07/15/19 DISCHARGE DATE: 07/16/19 DISCHARGE DIAGNOSES: 1. Angina. 2. Coronary artery disease. 3. Percutaneous transluminal coronary angioplasty and stent of the left anterior descending and right coronary artery and left circumflex this admission. HOSPITAL COURSE: Ms. Lisa presents with anginal symptomatology, underwent stress testing which was abnormal, underwent cardiac catheterization revealing 3-vessel coronary artery disease, underwent successful PTCA and stent of all 3 territories, was discharged home with the addition of aspirin, Plavix, pravastatin to her medical regimen. [facility] up with [facility] 1 month. TRANSINT:[id number] Voice Confirmation ID: [id number] DOCUMENT ID: [id number] LAURIE KATE MD at 1117 CC: [id number] DICTATION DATE: 08/09/19 1200 CASINO CAGE SUPERVISOR: 08/09/199 DIS IN 07/16/19 [address] [place] [address]
== END 2019-07-16 20:45 | disposition home or self-care (01) ==
LOC: D.ER 17:33 → D.M2 21:01 → OBSVTIME 21:02 → D.SDCHOLD 07-16 10:05 → D.M2 07-16 10:05
PROVIDERS: Emergency Medicine; Family Medicine; ADMIT Internal Medicine Interventional Cardiology; ATTEND Internal Medicine Interventional Cardiology
DX: I25.110 Atherosclerotic heart disease of native coronary artery with unstable angina pectoris (principal); F17.200 Nicotine dependence, unspecified, uncomplicated; I10 Essential (primary) hypertension
CPT/HCPCS: 93458; C9600 ×3

== ENCOUNTER 2019-12-17 14:22 | Inpatient (IN) | payer MEDICARE ==
[~2019-12-17] VITALS: Ht 152.4 cm; Wt 69.1 kg
--- NOTE | ~2019-12-17 | HEMODYNAMI ---
PATIENT:CARMELO SANABRIA MEDICAL RECORD: [id number] : 56 LOCATION:[facility] [address] [facility]# [id number] ADMISSION DATE: 12/19/19 Generatedon:12/20/20199:45 Patient name: CARMELO SANABRIA Patient #: [id number] SSN: [id number] : 1960 Date of study: 12/19/2019 Page: Of Hemodynamic Procedure Report Patient Data Patient Demographics Procedure consent was obtained First Name: CARMELO Gender: Female Last Name: DANIELE : 1960 Middle Initial: CRUZ Age: 59 year(s) Patient #: [id number] Race: SSN: [id number] Additional ID: [id number] Contact details Address: [address] [place] [address] State: [place] City: [place] Zip code: [address] Past Medical History Allergies Allergen Reaction Date Comments Reported Other allergy 07/16/2019 BUPIVICAINE, LIDOCAINE, DILAUDID, DEMEROL, TYLENOL FENTANYL, HYRDROCONE, NSAIDS, OXYCODONE, PCN, TRAMADOL, TIZANADINE, ESCITALOPRAM, PLAVIX Admission Admission Data Admission Date: 12/19/2019 Admission Time: 18:49 Arrival Date: 12/19/2019 Arrival Time: 15:16 Admit Source: Emergency Insurance Payor: Medicare department [facility] #: [id number] Room #: D.2118 Height (in.): 59.84 BSA: 1.67 (m2) Height (cm.): 152 BMI: 30.3 (kg/m2) Weight (lbs.): 154.32 Weight (kg.): 70 Lab Results Lab Result Date: 12/19/2019 Lab Result Time: 0:00 Biochemistry Name Units Result Min Max BUN mg/dl 12 --(-*--)-- 7 18 Creatinine mg/dl 1 --(--*-)-- 0.6 1.3 eGFR ml/min 60 *-(----)-- 90 120 NONAFRICAN CBC Name Units Result Min Max Hemoglobin g/dl 13 -*(----)-- 13.5 17.5 Procedure Procedure Types Cath Procedure Diagnostic Procedure [facility] w/Coronaries Sedation Charges Moderate Sedation up to 15 minutes Procedure Description Procedure Date Procedure Date: 12/19/2019 Procedure Start Time: 9:11 Procedure End Time: 9:32 Procedure Staff Name Function Rosaline Huggins RT Monitor Tc Gordon RN Nurse Mary Abreu RT Scrub Randy Curry MD Performing Physician Procedure Data Cath Procedure Fluoroscopy Diagnostic fluoroscopy Total fluoroscopy Time: 1.7 time: 1.7 min min Diagnostic fluoroscopy Total fluoroscopy dose: 246 dose: 246 mGy mGy Contrast Material Contrast Material Type Amount (ml) Isovue 300 64 Entry Location Entry Primary Successful Side Size Upsize Upsize Entry Closure Succes sful Closure Location (Fr) 1 (Fr) 2 (Fr) Remarks Device Remarks Femoral Right 5 Fr Exoseal artery Estimated blood loss: 5 ml Procedure Complications No complications Procedure Medications Medication Administration Route Dosage Oxygen etCO2 Nasal cannula 2 l/min Heparin Flush Bag added to field 2 bags (1000units/500ml NS) 0.9% NaCl I.V. 100 ml/hr Versed I.V. 2 mg Versed I.V. 1 mg Versed I.V. 1 mg Hemodynamics Rest BSA: 1.67 (m2) HGB: 13 (g/dl) O2 Consumption: Estimated: 172.01 (ml/min) O2 Cons umption indexed: Estimated:103 (ml/min/m) Heart Rate: 92 (bpm) Pressure Samples Time Site Value (mmHg) Purpose Heart Use Rate(bpm) 9:21 AO 126/59(86) Snapshot 89 9:27 LV 130/-6,13 Snapshot 100 9:27 AO 111/73(91) Pullback 88 Gradients Valve Time Site Site 2 Mean SEP/DFP Peak To Heart Use 1 (mmHg) (sec/min) Peak Rate (mmHg) (bpm) Aortic 9:27 LV AO 88 111/73(91) Snapshots Pre Cath Intra NCS Post Cath Vital Signs Time Heart Resp SPO2 etCO2 NIBP (mmHg) Rhythm Pain Sedation Rate (ipm) (%) (mmHg) Status Level (bpm) 9:05:28 84 16 100 43.6 146/78(117) NSR 0 (11) 10(A) , No pain 9:09:52 88 14 100 30.1 132/70(109) NSR 0 (11) 10(A) , No pain 9:14:08 83 18 100 45.9 127/73(113) NSR 0 (11) 10(A) , No pain 9:18:24 78 27 100 37.6 138/78(119) NSR 0 (11) 10(A) , No pain 9:22:43 89 39 100 43.6 126/79(103) NSR 0 (11) 10(A) , No pain 9:27:03 87 21 99 44.3 128/67(104) NSR 0 (11) 10(A) , No pain 9:31:17 89 14 100 37.6 137/87(116) NSR 0 (11) 10(A) , No pain Medications Time Medication Route Dose Verified Delivered Reason Notes Effec tiveness by by 9:08:23 Oxygen etCO2 2 Patricio Buffie used for Nasal l/min Randy Gordon RN procedure cannula 9:08:34 Heparin Flush added 2 Patricio Buffie used for Bag to bags Randy Gordon RN procedure (1000units/500ml field NS) 9:08:42 0.9% NaCl I.V. 100 Patricio Buffie Per ml/hr Randy Gordon RN physician 9:09:01 Versed I.V. 2 mg Patricio Buffie for Randy Gordon RN sedation 9:21:26 Versed I.V. 1 mg Patricio Buffie for Randy Gordon RN sedation 9:28:02 Versed I.V. 1 mg Patricio Buffie for Randy Gordon RN sedation Procedure Log Time Note 8:25:30 Informed consent obtained and on chart 8:27:54 Admit Source: Emergency department 8:27:59 Arrival Date: 12/19/2019 3:16:00 PM 8:28:16 Insurance Payor : Medicare 8:28:24 Patient Height : 59.84 inches 8:28:27 Patient Weight : 154.32 lbs 8:29:03 Lab Result : eGFR NONAFRICAN 60 ml/min 8:29:03 Lab Result : Hemoglobin 13 g/dl 8:29:03 Lab Result : BUN 12 mg/dl 8:29:03 Lab Result : Creatinine 1 mg/dl 8:29:25 Procedure Status Urgent Heart Cath (IP). 8:29:36 Diagnostic Cath Status : Urgent 8:30:07 Tc Gordon RN sent for patient. Start room use. 8:30:08 Time tracking: Regular hours (M-F 7:00 - 5:00) 8:30:14 Plan of Care:Hemodynamics will remain stable., Cardiac rhythm will remain stable., Comfort level will be maintained., Respiratory function will remain adequate., Patient/ family verbilizes understanding of procedure., Procedure tolerated without complication., Recovers from procedure without complications.. 8:41:22 Use device set Radial Dx or PCI 8:41:23 ACIST Syringe (00838) opened to sterile field. 8:41:24 Bag Decanter (2002S) opened to sterile field. 8:41:24 Medline Cath Pack ([id number]) opened to sterile field. 8:41:25 ACIST Manifold (78057) opened to sterile field. 8:41:25 ACIST Hand Control (06872) opened to sterile field. 8:41:26 Tegaderm 4 x 4 (1626W) opened to sterile field. 8:41:31 EMERALD Guide Wire (681-047) opened to sterile field. 8:53:28 Patient received from Med II to CCL 1 Alert and oriented. Tansferred to table in Supine position. 8:53:29 Correct patient and procedure confirmed by team. 8:53:29 Warm blankets applied, and karo hugger turned on for patient comfort. 8:53:30 ECG and BP/O2 sat monitors applied to patient. 9:04:10 Vital chart was started 9:04:12 Baseline sample Acquired. 9:04:14 Baseline sample Acquired. 9:04:27 Rhythm: sinus rhythm 9:04:30 Full Disclosure recording started 9:04:37 H&P Date Dictated: 12/19/2019 New H&P dictated by physician.. 9:04:41 Pre-op teaching completed and patient verbalized understanding. 9:04:41 Pre-procedure instructions explained to patient. 9:04:43 Family in waiting room. 9:04:45 Patient NPO since Midnight. 9:04:53 Is the patient allergic to Iodine/contrast media? No. 9:04:54 Was the patient premedicated? Yes 9:04:55 Is patient on blood thinner?Yes 9:05:06 ACC The patient was administered the following blood thiners within the last 24 hours: ACCEffient 9:05:18 Patient diabetic? No. 9:05:27 Previous problem with sedation/anesthesia? No ? 9:05:33 Snore? Yes 9:05:35 Sleep apnea? No 9:05:39 Deviated septum? No 9:05:40 Opens mouth fully? Yes 9:05:41 Sticks out tongue? Yes 9:05:45 Airway obstruction? No ? 9:05:47 Dentures? No ? 9:05:50 Pre procedure: right dorsailis pedis pulse 2+ Normal; easily identifiable; not easily obliterated 9:05:53 Pre procedure: left dorsailis pedis pulse 2+ Normal; easily identifiable; not easily obliterated 9:05:57 Patient pain scale 0/10 ?. 9:06:05 IV patent on arrival in left forearm with 0.9% NaCl at [facility]. 9:06:17 Lab results completed and on chart. 9:06:22 Risk of Mortality: 0.7 9:06:25 Risk of blood transfusion: 0.7 9:06:30 Risk of PRAKASH: 0.9 9:06:35 Right groin area was prepped with chlora-prep and draped in sterile fashion 9:06:37 Sharps counted by scrub and verified by R.N. 9:06:37 Alarms reviewed by R. N. 9:06:39 Physician arrived 9:06:40 Final Timeout: patient, procedure, and site verified with staff and physician. All members of the team are in agreement. 9:06:40 --------ALL STOP TIME OUT------ 9:06:42 Right groin site verified by team. 9:06:47 Fire Safety Assessment: A--An alcohol-based skin anteseptic being used preoperatively., C--Open oxygen or nitrous oxide is being used., D--An ESU, laser, or fiber-optic light is being used. 9:06:51 Physical assessment completed. ASA score P 2 - A patient with mild systemic disease as per Patricio Padilla MD. 9:07:08 2) 60-89 Mildly reduced kidney function, and other findings (as for stage 1) point to kidney disease. 9:07:12 Maximum allowable contrast dose (3.7 X eGFR X 0.75)166 ml. 9:07:18 Sedation plan: IV Moderate Sedation Medication:Versed, Fentanyl 9:08:23 Oxygen 2 l/min etCO2 Nasal cannula was administered by Tc Gordon RN; used for procedure; Verbal order read back and verified. 9:08:34 Heparin Flush Bag (1000units/500ml NS) 2 bags added to field was administered by Tc Gordon RN; used for procedure; Verbal order read back and verified. 9:08:42 0.9% NaCl 100 ml/hr I.V. was administered by Tc Gordon RN; Per physician; Verbal order read back and verified. 9:09:01 Versed 2 mg I.V. was administered by Tc Gordon RN; for sedation; Verbal order read back and verified. 9:11:24 Procedure started. 9:16:02 Informed spouse of pt, Yogesh Sanabria that she was in procedure room and that Dr. Padilla will call upon completion of procedure. 9:17:43 SHEATH 5FR [place] (NSN773) opened to sterile field. 9:17:43 MICROPUNCTURE 4FR Cook (G16676) opened to sterile field. 9:18:50 Access obtained with 4Fr micropunture. 9:19:00 A 5 Fr sheath was inserted into the Right Femoral artery 9::26 Versed 1 mg I.V. was administered by Tc Gordon RN; for sedation; Verbal order read back and verified. 9::29 5 Fr jl 4 guide catheter was inserted over the wire 9:23:43 LCA angiography performed. 9::46 Injector settings: Ml/sec: 3, Volume: 6, 9:23:50 Catheter removed. 9:24:01 5 Fr 3drc guide catheter was inserted over the wire 9:25:04 RCA angiography performed. 9:25:06 Injector settings: Ml/sec: 3, Volume: 6, 9:25:10 ACCDominant side:Left 9:25:30 Catheter removed. 9::43 5 Fr pigtail guide catheter was inserted over the wire 9::24 LV hemodynamics recorded. 9:: LV gram done using MANDUJANO 9::29 Injector settings: Ml/sec: 12, Volume: 8, 9:28:02 Versed 1 mg I.V. was administered by Tc Gordon RN; for sedation; Verbal order read back and verified. 9:28:10 EF : 75 % 9:28:18 Catheter removed. 9:29:17 EXOSEAL 5Fr (EX500) opened to sterile field. 9:29:27 DIAGNOSTIC Multipack 5Fr catheter set (RA6376) opened to sterile field. 9:29:36 Sheath removed intact; hemostasis achieved with Exoseal to the Right Femoral artery. 9:29:38 Procedure ended.(Physican Out) 9:30:30 Fluoroscopy time 01.70 minutes. 9:30:48 Fluoroscopy dose: 246 mGy 9:30:48 Flurop Dose total: 246 9:31:00 Dose Area Product 32734 mGy/cm. 9:31:04 Contrast amount:Isovue 300 64ml. 9:31:05 Maximum allowable dose exceeded? No. 9:31:06 Sharps counted by scrub and verified by R.N. 9:31:14 Insertion/operative site no bleeding no hematoma. 9:31:17 Post-op/insertion site Right Femoral artery dressed using a 4 x 4 and Tegaderm. 9:31:19 Post Procedure Pulses reassessed and unchanged 9:31:23 Post procedure rhythm: unchanged. 9:31:25 Estimated blood loss: 5 ml 9:31:27 Post procedure instruction explained to patient.Patient verbalizes understanding. 9:31:28 Patient needs reinforcement of post procedure teaching. 9:31:45 Procedure type changed to Cath procedure, Diagnostic procedure, [facility], [facility] w/Coronaries, Sedation Charges, Moderate Sedation up to 15 minutes 9:31:46 Procedure and supply charges have been captured, reviewed, submitted and are correct. 9:31:53 Procedure Complication : No complications 9:31:55 Vital chart was stopped 9:31:57 [facility] Findings: MVD- MD will discuss options w/ pt 9:32:04 Operative report dictated upon procedure completion. 9:32:05 See physician's report for complete and final results. 9:32:12 Report given to [facility]. 9:32:15 Patient transfered to [facility] II with Stretcher. 9:32:19 Full Disclosure recording stopped 9:32:19 Procedure ended. 9:32:24 End room use (Document Last) 9:33:13 End room use (Document Last) 9:33:33 End room use (Document Last) 9:43:20 Late entry: Exoseal not performed, manual pressure held. Device Usage Item Name Manufacture Quantity Catalog Hospital Part Current Minimal Lot# / Number Charge Number Stock Stock Serial# Code ACIST Syringe Acist 1 21945 496784 475353 [id number] 20 (08070) Medical Systems Inc Medline Cath Medline 1 [id number] 137641 14297 617496 5 Pack ([id number]) Bag Decanter Microtek 1 2001S 187217 34729 739210 5 (2001S) Medical Inc. ACIST Hand Acist 1 39838 342668 389247 380157 5 Control Medical (28317) Systems Inc ACIST Acist 1 04782 872989 039127 177230 5 Manifold Medical (71938) Systems Inc Tegaderm 4 x 3M 1 1626W 649903 506247 998621 5 4 (1626W) EMERALD Guide Cardinal 1 502-455 534869 225179 296235 5 Wire Health (502-455) MICROPUNCTURE Cook Medical 1 J57717 528537 913644 589295 5 4FR Cook (N82081) SHEATH 5FR Terumo 1 [id number] 156698 596158 517980 5 [place] (AFI436) EXOSEAL 5Fr Cardinal 1 EX500 733363 517794 967464 10 (EX500) Health DIAGNOSTIC Cardinal 1 NW5070 394760 18419 708379 30 Multipack 5Fr Health catheter set (PN0168) Signature Audit Harvey Stage Time Signature Unsigned Intra-Procedure 12/19/2019 Rosaline Huggins 9:33:13 AM RT(R) Intra-Procedure 12/19/2019 Tc Gordon RN 9:33:33 AM Intra-Procedure 12/19/2019 Ravi Vazquez RN 9:37:10 AM 12/20/2019 9:42:13 AM Intra-Procedure 12/20/2019 Mary Abreu 9:44:24 AM RT(R) Intra-Procedure 12/20/2019 Randy Curry MD 9:45:22 AM Signatures Monitor : Rosaline Huggins RT Signature : Date : Time : Nurse : Buffie Gordon RN Signature : Date : Time : Performing Physician : Signature : Norred Patricio MD Date : Time : [address] [place] [address]
[~2019-12-17 14:22] MED LIST changes: +ALBUTEROL SULF8.5 GM INH; +BAYER CHEWABLE81 MG PO; +EFFIENT10 MG PO; +PRAVACHOL20 MG PO; +SYNTHROID25 MCG PO; +TRIAMTERENE-HC1 EAC6 PO
[2019-12-17 14:57] LABS: BASOPHILS 0.2 % (0-2); EOSINOPHILS 1.3 % (0-7); HEMATOCRIT 45.5 % (36.0-48.0); HEMOGLOBIN 14.8 g/dL (12-16); IMMATURE GRANULOCYTES 0.2 % (0-5); MCH 31.9 pg (26.0-34.0); MCHC 32.5 g/dL (31.0-37.0); MCV 98.1 fL (80.0-100.0); MEAN PLATELET VOLUME 9.2 fL (7.4-10.4); MONOCYTES 4.6 % (2-11); NEUTROPHILS 72.7 % (40-80); PLATELET COUNT 272 10x3/uL (130-400); RBC 4.64 10x6/uL (4.00-5.40); RDW 13.6 % (11.5-14.5); WBC 9.2 10x3/uL (4.8-10.8)
[2019-12-17 15:05] LABS: APTT 36.2 SECONDS (22.8-39.4); INR 0.96 (0.85-1.17); PROTIME 12.7 SECONDS (11.6-15.0)
[2019-12-17 15:23] LABS: CALC OSMOLALITY 272 mosm/kg (275-300); CARBON DIOXIDE 27.9 mmol/L (21.0-32.0); CHLORIDE - SERUM 103 mmol/L (98-107); CREATININE - SERUM 0.9 mg/dL (0.6-1.3); GLUCOSE 107 mg/dL (74-106); POTASSIUM - SERUM 4.1 mmol/L (3.5-5.1); SODIUM 137 mmol/L (136-145); UREA NITROGEN 10 mg/dL (7-18); eGFR NON AFRICAN AMERICAN 67 mL/min (90-120)
--- NOTE | 2019-12-17 15:33 | NUR ---
PT RECEIVED 3 NITRO AND 324 ASA IN AMBULANCE PRIOR TO ARRIVAL AT ED. CURRENTLY PT BP IS 137/57 - LABETALOL HELD. DR MAXIMILIANO DAVIS.
[2019-12-17 15:34] VITALS: BP 137/57
[2019-12-17 15:38] LABS: ALBUMIN 3.5 g/dL (3.4-5.0); ALKALINE PHOSPHATASE 162 U/L (30-120); ALT (SGPT) 31 U/L (10-68); BILIRUBIN - TOTAL 0.21 mg/dL (0.2-1.3); CKMB 0.2 U/L (0.0-3.6); CREATINE KINASE 54 UL (21-215); MAGNESIUM - SERUM 2.1 mg/dL (1.8-2.4); PROTEIN - SERUM 7.2 g/dL (6.4-8.2); TROPONIN-I < 0.017 ng/mL (0.000-0.060)
[2019-12-17] MEDS ORDERED: PRALUENT P75 MG/1 ML SC (16:41)
[2019-12-17 16:46] VITALS: BP 149/83; BMI 30.3
--- NOTE | 2019-12-17 20:20 | NUR ---
REPORT RECIEVED AND INITIAL ROUNDS COMPLETED. PT RESTING IN BED. ALERT/ORIENTED. SR/83 PER TELEMETRY. NO REPORTS OF CHEST PAIN. FEELS SLIGHTLY SHORT OF BREATH. PLACED BACK ON O2 @ 2L/NC. MONITOR LABS AND CPOC.
[2019-12-17 20:30] VITALS: BP 137/75
[2019-12-17 21:43] LABS: CKMB 0.2 U/L (0.0-3.6); CREATINE KINASE 55 UL (21-215)
[2019-12-17 21:48] LABS: TROPONIN-I < 0.017 ng/mL (0.000-0.060)
--- NOTE | 2019-12-17 21:58 | NUR ---
INSTRUCT ON NPO AFTER MIDNIGHT UNTIL SEEN BY BOAT OUTBOARD ENGINE MECHANIC IN AM.
--- NOTE | 2019-12-17 21:59 | NUR ---
CURRENT TROPONIN LEVEL IS 0.017. CPOC. SR PER TELEMETRY. NO REPORTS OF CHEST PAIN.
[2019-12-18 01:00] VITALS: BP 141/85
--- NOTE | 2019-12-18 01:10 | NUR ---
C/O FEELING LIKE HER LEFT HAND IS SWOLLEN. THINKS IT IS THE IV, BUT SITE IS IN THE LEFT A/C. ELEVATED HAND ON PILLOW, IV SITE PATENT. WILL MONITOR.
[2019-12-18 03:02] LABS: BASOPHILS 0.2 % (0-2); EOSINOPHILS 2.8 % (0-7); IMMATURE GRANULOCYTES 0.4 % (0-5); LYMPHOCYTES 30.6 % (15-50); MCH 31.6 pg (26.0-34.0); MCHC 31.7 g/dL (31.0-37.0); MCV 99.5 fL (80.0-100.0); MEAN PLATELET VOLUME 9.2 fL (7.4-10.4); MONOCYTES 6.7 % (2-11); NEUTROPHILS 59.3 % (40-80); PLATELET COUNT 256 10x3/uL (130-400); RBC 4.12 10x6/uL (4.00-5.40); RDW 13.8 % (11.5-14.5); WBC 8.5 10x3/uL (4.8-10.8)
[2019-12-18 03:20] LABS: ALBUMIN 2.9 g/dL (3.4-5.0); ALKALINE PHOSPHATASE 134 U/L (30-120); ALT (SGPT) 28 U/L (10-68); BILIRUBIN - TOTAL 0.22 mg/dL (0.2-1.3); CALC OSMOLALITY 278 mosm/kg (275-300); CALCIUM 8.3 mg/dL (8.5-10.1); CARBON DIOXIDE 29.6 mmol/L (21.0-32.0); CHLORIDE - SERUM 107 mmol/L (98-107); CKMB 0.1 U/L (0.0-3.6); CREATINE KINASE 53 UL (21-215); GLUCOSE 105 mg/dL (74-106); MAGNESIUM - SERUM 2.1 mg/dL (1.8-2.4); POTASSIUM - SERUM 4.4 mmol/L (3.5-5.1); PROTEIN - SERUM 6.2 g/dL (6.4-8.2); SODIUM 140 mmol/L (136-145); UREA NITROGEN 12 mg/dL (7-18); eGFR NON AFRICAN AMERICAN 60 mL/min (90-120)
[2019-12-18 03:21] LABS: TROPONIN-I < 0.017 ng/mL (0.000-0.060)
[2019-12-18 04:30] VITALS: BP 135/82
--- NOTE | 2019-12-18 04:37 | NUR ---
REMAINS NPO UNTIL SEEN BY AIRCRAFT DE ICER INSTALLER. SR PER TELEMETRY. NO FURTHER C/O SWELLING TO LEFT HAND. NO SIGNS OF SWELLING PER NURSE TO LEFT HAND.
--- NOTE | 2019-12-18 07:15 | NUR ---
RECEIVED PT IN BED EYES CLOSED RESP UNLABORED SKIN W/D COLOR WNL NAD NOTED
[2019-12-18 08:00] VITALS: BP 107/63
[2019-12-18 09:05] LABS: CREATINE KINASE 46 UL (21-215); TROPONIN-I < 0.017 ng/mL (0.000-0.060)
[2019-12-18 12:00] VITALS: BP 127/63
[2019-12-18 16:00] VITALS: BP 118/66
--- NOTE | 2019-12-18 20:00 | NUR ---
REPORT RECIEVED AND INITIAL ROUNDS COMPLETED. PT RESTING IN BED. ALERT/ ORIENTED. WILL BE NPO AFTER MIDNIGHT FOR HEART CATH PER DR HERNANDEZ IN AM. O2 @ 2L/NC FOR PT'S FEELINGS OF CHEST HEAVINESS AND FEELING TIGHT IN TORSO. PT ALSO DECLINES TO HAVE IVF INFUSING THIS MAKES HER FEEL WORSE. CPOC.
[2019-12-18 21:00] VITALS: BP 129/69
--- NOTE | 2019-12-18 21:32 | NUR ---
PT DECLINED TO TAKE METOPROLOL BECAUSE SHE TOOK INITIAL DOSE AROUND 2PM AND FEELS THAT IT MADE HER FEEL "FUNNY". NO IVF. WEARING O2 @ 2L/NC. CPOC.
--- NOTE | 2019-12-18 22:00 | NUR ---
ASSISTED PATIENT TO TAKE SHOWER/WASH HAIR, CHANGE INTO NEW GOWN. COMPLETE LINEN CHANGE AND ROOM TEACHING PASTOR DONE AT THIS TIME.
[2019-12-19 04:00] VITALS: BP 118/64
--- NOTE | 2019-12-19 06:48 | NUR ---
CALL FROM DR HERNANDEZ WITH ORDERS FOR PT TO HAVE HEART CATH IN AM. SEE ORDERS.
--- NOTE | 2019-12-19 07:20 | NUR ---
RECIEVE REPORT. ALERT AND ORIENTED X4. SITTING UP IN BED. CONSENTS FOR DENTIST SIGNED ON CHART. PREOP COMPLETE. CONTINUE PLAN OF CARE AND SAFETY PRECAUTIONS.
[2019-12-19 08:10] VITALS: BP 108/69
--- NOTE | 2019-12-19 09:00 | NUR ---
TAKEN TO BRAND ADVOCATE VIA BED.
--- NOTE | 2019-12-19 09:31 | ST ---
PATIENT:CARMELO SANABRIA MEDICAL RECORD: [id number] SEX: F LOCATION:D. D.211 ORDER #: ADMISSION DATE: 12/17/19 AGE OF PATIENT: 59 REFERRING PHYSICIAN: INTERPRETING PHYSICIAN: WES HERNANDEZ MD DATE OF SERVICE: 12/18/2019 LEXISCAN STRESS TEST PROCEDURE: Lexiscan stress test. PROCEDURE IN DETAIL: The patient was brought into the nuclear lab and placed in the supine position on the nuclear table. The patient had standard Lexiscan infused without difficulty. The patient had mild shortness of breath and mild chest pain. This resolved after the procedure. The patient had transient ST segment depressions. FINDINGS: Ejection fraction of 79% without regional wall motion abnormalities. Anterior reversible defect that is moderate in intensity and severe in distribution. IMPRESSION: Abnormal nuclear stress test. RECOMMENDATIONS: Depending on clinical situation catheter-directed angiography may be appropriate. Continue risk factor modification and symptom directed therapy. TRANSINT:[id number] Voice Confirmation ID: [id number] DOCUMENT ID: [id number] WES HERNANDEZ MD at 0931 CC: [id number] DICTATION DATE: 12/18/19 1246 FIXTURE MAKER: 12/18/192005 ADM IN [facility] [address] [place] [address]
--- NOTE | 2019-12-19 09:54 | NUR ---
RETURN TO ROOM VIA BED FROM BRIM GREASER OPERATOR. RT GROIN DRESSING CLEAN DRY INTACT. FREE FROM HEMATOMA. FREE FROM BLEEDING. PULSE +2 BILATERALLY. BP-122/65, HR-81 SINUS RYTHM, 02-98% WITH 2L NC. CONTINUE PLAN OF CARE AND SAFETY PRECAUTIONS.
[2019-12-19 14:45] VITALS: BP 116/67
--- NOTE | 2019-12-19 15:16 | NUR ---
ALERT AND ORIENTED X4. AMBULATES TO RESTROOM. RT GROIN DRESSING C/D/I. FREE FROM BLEEDING. FREE FROM HEMATOMA. DENIES ANY NEEDS AT THIS TIME. CONTINUE PLAN OF CARE AND SAFETY PRECAUTIONS.
--- NOTE | 2019-12-19 19:30 | NUR ---
REPORT RECIEVED AND INITIAL ROUNDS COMPLETED. SR PER TELEMETRY. CPOC.
--- NOTE | 2019-12-19 19:46 | NUR ---
PHONE CALL FROM PATIENT'S SPOUSE EXPRESSING CONCERN OVER PATIENT'S LEVEL OF ANXIETY SINCE BEING TOLD SHE WILL NEED OPEN HEART SURGERY. REQUESTED THAT PATIENT BE GIVEN ATIVAN TO HELP HER REST. PT HAS A STANDING ATIVAN ORDER, WILL PROVIDE.
[2019-12-19 21:00] VITALS: BP 126/67
--- NOTE | 2019-12-19 21:57 | NUR ---
SPENT TIME TALKING WITH PATIENT TO HELP WITH HER ANXIETY LEVEL. PROVIDED ATIVAN FOR HER ANXIETY. CPOC. PROVIDE SUPPORTIVE FEEDBACK.
[2019-12-20 04:00] VITALS: BP 118/64
[2019-12-20 05:07] LABS: BASOPHILS 0.3 % (0-2); EOSINOPHILS 2.9 % (0-7); HEMATOCRIT 41.2 % (36.0-48.0); HEMOGLOBIN 12.8 g/dL (12-16); IMMATURE GRANULOCYTES 0.1 % (0-5); MCH 31.3 pg (26.0-34.0); MCHC 31.1 g/dL (31.0-37.0); MCV 100.7 fL (80.0-100.0); MEAN PLATELET VOLUME 9.2 fL (7.4-10.4); MONOCYTES 6.5 % (2-11); NEUTROPHILS 58.2 % (40-80); PLATELET COUNT 244 10x3/uL (130-400); RBC 4.09 10x6/uL (4.00-5.40); WBC 7.3 10x3/uL (4.8-10.8)
[2019-12-20 05:28] LABS: ALBUMIN 2.9 g/dL (3.4-5.0); ANION GAP 6.3 mmol/L (8-16); BILIRUBIN - TOTAL 0.17 mg/dL (0.2-1.3); CALCIUM 8.5 mg/dL (8.5-10.1); CARBON DIOXIDE 31.6 mmol/L (21.0-32.0); CREATININE - SERUM 0.9 mg/dL (0.6-1.3); POTASSIUM - SERUM 3.9 mmol/L (3.5-5.1); PROTEIN - SERUM 6.2 g/dL (6.4-8.2)
[2019-12-20 05:48] LABS: PLT FUNCT.(P2Y12) PLAVIX 20 PRU (194-418)
[2019-12-20 08:00] VITALS: BP 117/65
[2019-12-20 10:31] LABS: APTT 34.4 SECONDS (22.8-39.4); INR 0.94 (0.85-1.17); PROTIME 12.5 SECONDS (11.6-15.0)
[2019-12-20 10:37] LABS: PHOSPHOROUS 3.7 mg/dL (2.5-4.9); T4 THYROXIN - FREE 1.11 ng/dL (0.76-1.46); THYROID STIMULATING HORMONE 4.08 uIU/mL (0.36-3.74); URIC ACID 5.4 mg/dL (2.6-7.2)
[2019-12-20 12:00] VITALS: BP 123/64
[2019-12-20 12:27] VITALS: Ht 152.4 cm; Wt 69.1 kg
[2019-12-20 16:00] VITALS: BP 123/60
--- NOTE | 2019-12-20 16:43 | MORECARE ---
CASE MANAGEMENT DISCHARGE SUMMARY PATIENT: CARMELO SANABRIA UNIT: [id number] ADM DATE: 12/19/19 AGE: 59 : 56 SEX: F ROOM/BED: D.[facility]6 AUTHOR: KENDALL ROBLEDO PHYSICIAN: REFERRING PHYSICIAN: KAITLIN GUZMAN MD DATE OF SERVICE: 12/20/19 Discharge Plan Patient Name: CARMELO SANABRIA Facility: [facility]:[place] : 1960 Planned Disposition: Home Anticipated Discharge Date: Discharge Date: Expected LOS: Initial Reviewer: [email or web address] Initial Review Date: 12/20/2019 Generated: 12/20/19 5:43 pm Coverage Notice Reviewer: [email or web address] Jazmyne Talley Notice Issued Date-Time: 12/18/2019 19:50 Notice Type: Medicare Outpatient Observation Notice Notice Delivered To: Patient Relationship to Patient: Self Billposter Name: Delivery Method: HAND - Hand Delivered Marie Days: Prior Verbal Notification: Recipient Understood Notice: Yes Recipient Signature: Yes Med Rec Note Co-signed by Attending: Coverage Notice Comment: Patient Name: CARMELO SANABRIA Page [phone] at 1643 All edits/amendments must be made on the electronic document DICTATION DATE: 12/20/191642 TAPER/FINISHER: PATSY 12/20/19 164 RPT#: [id number] DC DATE: STATUS: ADM IN [address] [address] [place] [address] END OF REPORT
--- NOTE | 2019-12-20 16:51 | MORECARE ---
CASE MANAGEMENT DISCHARGE SUMMARY PATIENT: CARMELO SANABRIA UNIT: [id number] ADM DATE: 12/19/19 AGE: 59 : 56 SEX: F ROOM/BED: D.7399 AUTHOR: VENKAT,DOC PHYSICIAN: REFERRING PHYSICIAN: KAITLIN GUZMAN MD DATE OF SERVICE: 12/20/19 Discharge Plan Patient Name: CARMELO SANABRIA Facility: [facility]:[place] : 1960 Planned Disposition: Home Anticipated Discharge Date: Discharge Date: Expected LOS: Initial Reviewer: [email or web address] Initial Review Date: 12/20/2019 Generated: 12/20/19 5:50 pm Comments DCP- Discharge Planning Updated by [email or web address]: Eladio Rivas on 12/20/19 3:[address] Patient Name: CARMELO SANABRIA Admission Status: ER Accout number: [id number] Admission Date: 12-19-2019 : 1960 Admission Diagnosis: Attending: SHERRY Current LOS: 1 Anticipated DC Date: Planned Disposition: Home Primary Insurance: [employer] MEDICARE ADV Discharge Planning Comments: CM MET WITH PT IN ROOM TO DISCUSS DISCHARGE PLANNING AND NEEDS. PT REPORTS LIVING AT HOME INDEPENDENTLY WITH HER SPOUSE. PT HAS NO MEDICAL EQUIPMENT AND NO OUTSIDE SERVICES ASSISTING IN THE HOME. CM DISCUSSED AVAILABILITY OF HOME HEALTH, REHAB SERVICES AND MEDICAL EQUIPMENT. PT DENIES DISCHARGE NEEDS, REPORTS HER SPOUSE WILL PICK HER UP FOR DISCHARGE HOME. PT PLANS TO DISCHARGE HOME WITH SPOUSE, HAS NO ANTICIPATED DISCHARGE NEEDS AT THIS TIME. CM TO FOLLOW AND ASSIST IF NEEDED. Lot Associate: Eladio Rivas DCPIA - Discharge Planning Initial Assessment Updated by [email or web address]: Eladio Rivas on 12/20/19 4:45 pm * Is the patient Alert and Oriented? Yes * How many steps to enter\exit or inside your home? * PCP DR. MITCHELL * Pharmacy [facility] [address] ([facility] [place] [facility]) * Preadmission Environment Home with Family * ADLs Independent * Equipment None * Other Equipment NO MEDICAL EQUIPMENT PROVIDER PREFERENCE * List name and contact numbers for known caregivers / representatives who currently or will assist patient after discharge: ARISTIDES SANABRIA, SPOUSE, * Verbal permission to speak to the caregivers and representatives has been obtained from the patient. N/A * Community resources currently utilized None * Please name any agencies selected above. [facility] * Additional services required to return to the preadmission environment? No * Can the patient safely return to the preadmission environment? Yes * Has this patient been hospitalized within the prior 30 days at any hospital? No Coverage Notice Reviewer: [id number] Jazmyne Talley Notice Issued Date-Time: 12/18/2019 19:50 Notice Type: Medicare Outpatient Observation Notice Notice Delivered To: Patient Relationship to Patient: Self Mailroom Assistant Name: Delivery Method: HAND - Hand Delivered Marie Days: Prior Verbal Notification: Recipient Understood Notice: Yes Recipient Signature: Yes Med Rec Note Co-signed by Attending: Coverage Notice Comment: Last DP export: 12/20/19 3:43 pm Patient Name: CARMELO SANABRIA Page [phone] at 1651 All edits/amendments must be made on the electronic document DICTATION DATE: 12/20/191649 VIDEOTAPE RECORDING ENGINEER: PATSY 12/20/191649 RPT#: [id number] DC DATE: STATUS: ADM IN [facility] [address] [place] [address] END OF REPORT
--- NOTE | 2019-12-20 19:23 | NUR ---
RECEIVED BEDSIDE REPORT. PATIENT ALERT AND ORIENTED, RESTING COMFORTABLY IN BED. RESPIRATIONS ARE EVEN AND UNLABORED. NO S/S OF DISTRESS. NO C/O PAIN. PATIENT UPSET STATING THAT WE ARE ALLOWING COVID PATIENT TO WONDER THE UNIT. ATTEMPTED TO REASSURE PATIENT THAT SHE WAS SAFE. HOWEVER, THAT WAS NOT SUCCESSFUL. CALLED CENTRAL SUPPLY AIDE TO REASSURE PATIENT. WHEN CENTRAL SUPPLY AIDE LEFT ROOM PATIENT STATED SHE WAS NOT BEING TRUTHFUL. PATIENT REQUESTED ATIVAN WHICH WAS GIVEN. CALL LIGHT WITHIN REACH. WILL CPOC.
[2019-12-20 20:43] VITALS: BP 123/61
[2019-12-21 05:30] LABS: BASOPHILS 0.2 % (0-2); EOSINOPHILS 2.1 % (0-7); HEMATOCRIT 38.4 % (36.0-48.0); IMMATURE GRANULOCYTES 0.2 % (0-5); LYMPHOCYTES 24.2 % (15-50); MCH 31.3 pg (26.0-34.0); MCHC 31.3 g/dL (31.0-37.0); MEAN PLATELET VOLUME 9.4 fL (7.4-10.4); MONOCYTES 5.2 % (2-11); NEUTROPHILS 68.1 % (40-80); PLATELET COUNT 240 10x3/uL (130-400); RBC 3.84 10x6/uL (4.00-5.40); RDW 13.9 % (11.5-14.5)
[2019-12-21 05:44] LABS: WBC 9.7 10x3/uL (4.8-10.8)
[2019-12-21 05:57] LABS: CALC OSMOLALITY 280 mosm/kg (275-300); CALCIUM 8.5 mg/dL (8.5-10.1); CARBON DIOXIDE 30.5 mmol/L (21.0-32.0); CHLORIDE - SERUM 104 mmol/L (98-107); CREATININE - SERUM 0.8 mg/dL (0.6-1.3); GLUCOSE 101 mg/dL (74-106); POTASSIUM - SERUM 4.1 mmol/L (3.5-5.1); SODIUM 140 mmol/L (136-145); UREA NITROGEN 17 mg/dL (7-18); eGFR NON AFRICAN AMERICAN 77 mL/min (90-120)
[2019-12-21 09:42] VITALS: BP 110/64
[2019-12-21 11:20] VITALS: BP 110/65
[2019-12-21 13:56] LABS: BILIRUBIN NEGATIVE (NEGATIVE); GLUCOSE NEGATIVE (NEGATIVE); KETONE NEGATIVE (NEGATIVE); NITRITE NEGATIVE (NEGATIVE); SPECIFIC GRAVITY 1.005 (1.005-1.020); UROBILINOGEN NORMAL (NORMAL)
[2019-12-21 20:00] VITALS: BP 108/56
[2019-12-22] VITALS: BP 100/53
[2019-12-22 04:00] VITALS: BP 108/60
[2019-12-22 05:24] LABS: BASOPHILS 0.2 % (0-2); EOSINOPHILS 2.9 % (0-7); HEMATOCRIT 39.3 % (36.0-48.0); HEMOGLOBIN 12.4 g/dL (12-16); IMMATURE GRANULOCYTES 0.2 % (0-5); LYMPHOCYTES 25.1 % (15-50); MCH 31.5 pg (26.0-34.0); MCHC 31.6 g/dL (31.0-37.0); MCV 99.7 fL (80.0-100.0); MEAN PLATELET VOLUME 9.5 fL (7.4-10.4); MONOCYTES 6.1 % (2-11); NEUTROPHILS 65.5 % (40-80); PLATELET COUNT 271 10x3/uL (130-400); RBC 3.94 10x6/uL (4.00-5.40); RDW 13.8 % (11.5-14.5); WBC 9.1 10x3/uL (4.8-10.8)
[2019-12-22 05:33] LABS: CALC OSMOLALITY 280 mosm/kg (275-300); CALCIUM 8.8 mg/dL (8.5-10.1); CHLORIDE - SERUM 103 mmol/L (98-107); CREATININE - SERUM 0.8 mg/dL (0.6-1.3); GLUCOSE 98 mg/dL (74-106); POTASSIUM - SERUM 4.2 mmol/L (3.5-5.1); SODIUM 140 mmol/L (136-145); UREA NITROGEN 17 mg/dL (7-18); eGFR NON AFRICAN AMERICAN 77 mL/min (90-120)
[2019-12-22 05:59] LABS: PLT FUNCT.(P2Y12) PLAVIX 82 PRU (194-418)
--- NOTE | 2019-12-22 07:45 | NUR ---
AM ROUNDS COMPLETED. INTRODUCED MYSELF TO PT PRIMARY RN FOR TODAYS SHIFT. SHIFT ASSESSMENT COMPLETED. PT IS A&O SITTING UP IN BED RESTING QUIETLY TALKING ON HER PHONE. PT IS EXTREMELY ANXIOUS FOR HER OPEN HEART SURGERY TOMORROW SHE VOICES TO ME. EXPLAINED THE PROCESS AND TRIED TO HELP EASE HER MIND A LITTLE BIT. PT VOICED THANKS. PT HAS NO PIV AND STATES "I JUST AM SO WORKED UP AND NEED A BREAK" PT TOLERATING FLUIDS FINE HOWEVER I DID EXPLAIN SHE MUST HAVE ONE PRIOR TO SURGERY. PT VERBALIZED UNDERSTANDING AND STATES SHE WILL LET ME PLACE ONE LATER THIS AFTERNOON. WILL ALLOW PT TO TALK TO HER FAMILY AND TRY TO REST FOR NOW. CL IN REACH, BED IN LOWEST, SIDE RAILS X2. WILL CPOC.
[2019-12-22 08:11] VITALS: BP 105/50
--- NOTE | 2019-12-22 10:45 | NUR ---
PT SITTING UP IN BED RESTING QUIETLY. PT C/O A SMALL BLISTER THAT OPENED ON HER R.PELVIC BONE. I APPLIED A BAND-AID TO KEEP OPEN SKIN COVERED. NO FURTHER NEEDS AT THIS TIME. CL IN REACH. WILL CTM.
[2019-12-22 12:22] VITALS: BP 105/67
--- NOTE | 2019-12-22 13:57 | NUR ---
CARDIOLOGY NURSE AT BEDSIDE AND PTS CABG HAS BEEN MOVED TO THIS FRIDAY. CARDIOLOGY OKAY WITH PT TO DISCHARGE OVER THE WEEK AND WEEKEND IF OKAY WITH PRIMARY AND RETURN TO HOSPITAL Friday12/27/19 FOR PLANNED OPEN HEART SURGERY. PAGED PRIMARY AND THEY STATE THEY WILL DISCHARGE PATIENT SHE IS VERY ANXIOUS AND WOULD LIKE TO GO HOME. WILL BEGIN DISCHARGE WORKUP AND CPOC.
--- NOTE | 2019-12-22 14:25 | NUR ---
PT STATING SHE WANTS HOME OXYGEN. DISCUSSED WITH PRIMARY AND TURNED OFF OXYGEN TO SEE IF PT QUALIFIES FOR HOME NC.
--- NOTE | 2019-12-22 14:49 | NUR ---
WALK TEST PERFORMED AND PTS RESTING O2 SAT ON RA WAS 97% PTS AMBULATING O2 SAT WAS 98% EXPLAINED TO HER SHE WOULD NOT QUALIFY FOR HOME OXYGEN AND SHE VERBALIZED UNDERSTANDING.
--- NOTE | 2019-12-22 14:56 | CN ---
PATIENT NAME:CARMELO SANABRIA MEDICAL RECORD: [id number] : 56 LOCATION:D.M2 D.2118 ADMIT DATE: 12/19/19 ACCOUNT: [id number] CONSULTING PHYSICIAN: MITCH EDDY MD REFERRING PHYSICIAN: KAITLIN GUZMAN MD DATE OF CONSULTATION: 12/21/2019 PSYCHIATRIC CONSULTATION IDENTIFYING DATA: The patient is 59 years old and she is admitted to the hospital secondary to chest pain. CHIEF COMPLAINT: Anxiety. HISTORY OF PRESENT ILLNESS: The patient was admitted with chest pain. 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 Apparently, she is scheduled for quadruple bypass surgery. She is very anxious about being in the hospital and having the surgery. After a fairly extensive conversation about this, I will provide a summary. She is fearful that she is going to contract the COVID-19 infection in the hospital. She is also fearful that it will be fatal if she contracts this after having major surgery such as bypass surgery. She is angry that she can hear nurses at the nurses' station talking about the cases of COVID either in the hospital or among coworkers or employees. She also was suspicious that when she questions people about the number of cases in the hospital that she is being lied to. She wants everyone who comes into her room to wear a disposable gallon and rubber gloves along with the mask. She has no ongoing history of psychiatric problems. She has no history of substance abuse. There is no evidence of psychotic symptoms or dangerousness to self or others. ASSESSMENT: Adjustment disorder with mixed emotional features. PLAN: The patient has some legitimate concerns. I discussed with her confidentiality and assured her that hospital staff would be appropriate and not discussing things at the nursing station in a way that might be overheard. In addition to this, I have explained to her that the hospital is following CDC guidelines regarding infection control procedures and that we will continue to do so. I do not think she is very much relieved by this, but there is nothing else that I can really do or say to make her feel better. I am going to start her on a scheduled dose of Ativan to assist with her anxiety. I do not think outpatient psychiatric care is needed or appropriate. I also do not think she should be prescribed benzodiazepines after she leaves the hospital. TRANSINT:[id number] Voice Confirmation ID: [id number] DOCUMENT ID: [id number] MITCH EDDY MD at 1456 CC: [id number] DICTATION DATE: 12/21/19 1504 SAFETY INVESTIGATOR: 12/21/19 1532 ADM IN [place] [id number] [place] [id number]
--- NOTE | 2019-12-22 15:54 | NUR ---
DISCHARGE TEACHING PROVIDED AND PAPERS SIGNED. PT VERBALIZED UNDERSTANDING AND DENIES ANY QUESTIONS OR CONCERNS. ALL BELONGINGS COLLECTED AND SENT WITH PT. TELEMETRY REMOVED AND RETURNED TO [employer]. CALLED IN PTS METOPROLOL TO [facility] PER CARDIOLOGY IT WAS LEFT OFF [facility]. PT VERBALIZED UNDERSTANDING TO GO PICK IT UP. NO FURTHER NEEDS. TRANSPORTATION HERE. WILL ESCORT PT DOWN AT THIS TIME.
--- NOTE | 2019-12-22 17:16 | MORECARE ---
CASE MANAGEMENT DISCHARGE SUMMARY PATIENT: CARMELO SANABRIA UNIT: [id number] ADM DATE: 12/19/19 AGE: 59 : 56 SEX: F ROOM/BED: D.6707 AUTHOR: VENKAT,DOC PHYSICIAN: REFERRING PHYSICIAN: KAITLIN GUZMAN MD DATE OF SERVICE: 12/22/19 Discharge Plan Patient Name: CARMELO SANABRIA Facility: [facility]:[place] : 1960 Planned Disposition: Home Anticipated Discharge Date: Discharge Date: 12/22/2019 Expected LOS: Initial Reviewer: [id number] Initial Review Date: 12/20/2019 Generated: 12/22/19 6:15 pm Comments DCP- Discharge Planning Updated by [id number]: Stacy Rosales on 12/22/19 4:[address] PT PLANS TO DISCHARGE HOME WITH SPOUSE, AND HAS NO ANTICIPATED DISCHARGE NEEDS. PT WILL DRIVE HOME. PATIENT STATED SHE WILL RETURN ON FRIDAY FOR THE SURGERY. STATED SHE WAS TOO FEARFUL TO STAY IN THE HOSPITAL WITH THE POSIBILITY OF OBTAINIG COVID WHILE HERE. CM TO FOLLOW AND ASSIST IF NEEDED. STACY ROSALES MSN,RN,CM DCP- Discharge Planning Updated by [email or web address]: Eladio Rivas on 12/20/19 3:[address] Patient Name: CARMELO SANABRIA Admission Status: ER Accout number: [id number] Admission Date: 12-19-2019 : 1960 Admission Diagnosis: Attending: SHERRY Current LOS: 1 Anticipated DC Date: Planned Disposition: Home Primary Insurance: [employer] MEDICARE ADV Discharge Planning Comments: CM MET WITH PT IN ROOM TO DISCUSS DISCHARGE PLANNING AND NEEDS. PT REPORTS LIVING AT HOME INDEPENDENTLY WITH HER SPOUSE. PT HAS NO MEDICAL EQUIPMENT AND NO OUTSIDE SERVICES ASSISTING IN THE HOME. CM DISCUSSED AVAILABILITY OF HOME HEALTH, REHAB SERVICES AND MEDICAL EQUIPMENT. PT DENIES DISCHARGE NEEDS, REPORTS HER SPOUSE WILL PICK HER UP FOR DISCHARGE HOME. PT PLANS TO DISCHARGE HOME WITH SPOUSE, HAS NO ANTICIPATED DISCHARGE NEEDS AT THIS TIME. CM TO FOLLOW AND ASSIST IF NEEDED. Marketing Traffic Coordinator: Eladio Rivas DCPIA - Discharge Planning Initial Assessment Updated by [id number]: Eladio Rivas on 12/20/19 4:45 pm * Is the patient Alert and Oriented? Yes * How many steps to enter\exit or inside your home? * PCP DR. MITCHELL * Pharmacy [facility] [address] ([facility] [place] [facility]) * Preadmission Environment Home with Family * ADLs Independent * Equipment None * Other Equipment NO MEDICAL EQUIPMENT PROVIDER PREFERENCE * List name and contact numbers for known caregivers / representatives who currently or will assist patient after discharge: ARISTIDES SANABRIA, SPOUSE, * Verbal permission to speak to the caregivers and representatives has been obtained from the patient. N/A * Community resources currently utilized None * Please name any agencies selected above. [facility] * Additional services required to return to the preadmission environment? No * Can the patient safely return to the preadmission environment? Yes * Has this patient been hospitalized within the prior 30 days at any hospital? No Coverage Notice Reviewer: [id number] Jazmyne Talley Notice Issued Date-Time: 12/18/2019 19:50 Notice Type: Medicare Outpatient Observation Notice Notice Delivered To: Patient Relationship to Patient: Self Veneer Clipper Name: Delivery Method: HAND - Hand Delivered Marie Days: Prior Verbal Notification: Recipient Understood Notice: Yes Recipient Signature: Yes Med Rec Note Co-signed by Attending: Coverage Notice Comment: Reviewer: [id number] Jazmyne Rosales Notice Issued Date-Time: 12/22/2019 14:50 Notice Type: IM Discharge Notice Notice Delivered To: Patient Relationship to Patient: Veneer Clipper Name: Delivery Method: HAND - Hand Delivered Marie Days: Prior Verbal Notification: Recipient Understood Notice: Yes Recipient Signature: Yes Med Rec Note Co-signed by Attending: Coverage Notice Comment: DC IMM delivered, explained, signed by the patient, and placed in his chart. Signed form also left with patient. Last DP export: 12/20/19 3:51 pm Patient Name: CARMELO SANABRIA Page 13784 at 1716 All edits/amendments must be made on the electronic document DICTATION DATE: 12/22/191714 POWER DISTRIBUTOR: PATSY 12/22/191714 RPT#: [id number] DC DATE:12/22/19 STATUS: DIS IN [place] [id number] [place] [address] END OF REPORT
--- NOTE | 2019-12-22 17:23 | MORECARE ---
CASE MANAGEMENT DISCHARGE SUMMARY PATIENT: CARMELO SANABRIA UNIT: [id number] ADM DATE: 12/19/19 AGE: 59 : 56 SEX: F ROOM/BED: D.9542 AUTHOR: VENKAT,DOC PHYSICIAN: REFERRING PHYSICIAN: KAITLIN GUZMAN MD DATE OF SERVICE: 12/22/19 Discharge Plan Patient Name: CARMELO SANABRIA Facility: [facility]:[place] : 1960 Planned Disposition: Home Anticipated Discharge Date: Discharge Date: 12/22/2019 Expected LOS: Initial Reviewer: [id number] Initial Review Date: 12/20/2019 Generated: 12/22/19 6:23 pm Comments DCP- Discharge Planning Updated by [email or web address]: Eladio Rivas on 12/20/19 3:[address] Patient Name: CARMELO SANABRIA Admission Status: ER Accout number: [id number] Admission Date: 12-19-2019 : 1960 Admission Diagnosis: Attending: SHERRY Current LOS: 1 Anticipated DC Date: Planned Disposition: Home Primary Insurance: [employer] MEDICARE ADV Discharge Planning Comments: CM MET WITH PT IN ROOM TO DISCUSS DISCHARGE PLANNING AND NEEDS. PT REPORTS LIVING AT HOME INDEPENDENTLY WITH HER SPOUSE. PT HAS NO MEDICAL EQUIPMENT AND NO OUTSIDE SERVICES ASSISTING IN THE HOME. CM DISCUSSED AVAILABILITY OF HOME HEALTH, REHAB SERVICES AND MEDICAL EQUIPMENT. PT DENIES DISCHARGE NEEDS, REPORTS HER SPOUSE WILL PICK HER UP FOR DISCHARGE HOME. PT PLANS TO DISCHARGE HOME WITH SPOUSE, HAS NO ANTICIPATED DISCHARGE NEEDS AT THIS TIME. CM TO FOLLOW AND ASSIST IF NEEDED. Assistant Professor Of Economics: Eladio Rivas DCPIA - Discharge Planning Initial Assessment Updated by [id number]: Eladio Rivas on 12/20/19 4:45 pm * Is the patient Alert and Oriented? Yes * How many steps to enter\exit or inside your home? * PCP DR. MITCHELL * Pharmacy [facility] ([facility] [place] [facility]ACY) * Preadmission Environment Home with Family * ADLs Independent * Equipment None * Other Equipment NO MEDICAL EQUIPMENT PROVIDER PREFERENCE * List name and contact numbers for known caregivers / representatives who currently or will assist patient after discharge: ARISTIDES SANABRIA, SPOUSE, * Verbal permission to speak to the caregivers and representatives has been obtained from the patient. N/A * Community resources currently utilized None * Please name any agencies selected above. [facility] * Additional services required to return to the preadmission environment? No * Can the patient safely return to the preadmission environment? Yes * Has this patient been hospitalized within the prior 30 days at any hospital? No Coverage Notice Reviewer: [id number] Jazmyne Talley Notice Issued Date-Time: 12/18/2019 19:50 Notice Type: Medicare Outpatient Observation Notice Notice Delivered To: Patient Relationship to Patient: Self Waste Water Treatment Plant Operator Name: Delivery Method: HAND - Hand Delivered Marie Days: Prior Verbal Notification: Recipient Understood Notice: Yes Recipient Signature: Yes Med Rec Note Co-signed by Attending: Coverage Notice Comment: Reviewer: [email or web address] Jazmyne Tripathi Notice Issued Date-Time: 12/22/2019 14:50 Notice Type: IM Discharge Notice Notice Delivered To: Patient Relationship to Patient: Waste Water Treatment Plant Operator Name: Delivery Method: HAND - Hand Delivered Marie Days: Prior Verbal Notification: Recipient Understood Notice: Yes Recipient Signature: Yes Med Rec Note Co-signed by Attending: Coverage Notice Comment: DC IMM delivered, explained, signed by the patient, and placed in his chart. Signed form also left with patient. Last DP export: 12/22/19 4:16 pm Patient Name: CARMELO SANABRIA Page [phone] at 1723 All edits/amendments must be made on the electronic document DICTATION DATE: 12/22/191722 DEEP FRYER ASSEMBLER: PATSY 12/22/191722 RPT#: [id number] DC DATE:12/22/19 STATUS: DIS IN [facility] [address] [place] [address] END OF REPORT
== END 2019-12-22 15:56 | disposition home or self-care (01) | DRG 287 ==
LOC: D.ER 14:22 → D.M2 15:16 → OBSVTIME 15:34 → D.M2 12-19 18:49
PROVIDERS: Family Medicine; Internal Medicine Cardiovascular Disease; Internal Medicine Nephrology; Thoracic Surgery (Cardiothoracic Vascular Surgery); ADMIT Family Medicine; ATTEND Family Medicine
PROC: B2151ZZ Fluoroscopy of Left Heart using Low Osmolar Contrast (ICD-10-PCS; 2019-12-19)
PROC: 4A023N7 Measurement of Cardiac Sampling and Pressure, Left Heart, Percutaneous Approach (ICD-10-PCS; 2019-12-19)
PROC: B2111ZZ Fluoroscopy of Multiple Coronary Arteries using Low Osmolar Contrast (ICD-10-PCS; principal; 2019-12-19 08:30)
DX: I25.110 Atherosclerotic heart disease of native coronary artery with unstable angina pectoris (principal); T82.855A Stenosis of coronary artery stent, initial encounter; K21.9 Gastro-esophageal reflux disease without esophagitis; F41.8 Other specified anxiety disorders; Y84.9 Medical procedure, unspecified as the cause of abnormal reaction of the patient, or of later complication, without mention of misadventure at the time of the procedure; J84.10 Pulmonary fibrosis, unspecified; Z72.0 Tobacco use

== ENCOUNTER 2019-12-27 09:50 | Inpatient (IN) | payer MEDICARE ==
[~2019-12-27] VITALS: Ht 152.4 cm; Wt 74.1 kg
[~2019-12-27 09:50] MED LIST changes: +PRALUENT P75 MG/1 ML SC
[2019-12-27] MEDS ORDERED: METOPROLOL (10:08)
[2019-12-27 11:46] LABS: INR 0.95 (0.85-1.17); PROTIME 12.6 SECONDS (11.6-15.0)
[2019-12-27 11:47] LABS: APTT 35.6 SECONDS (22.8-39.4)
[2019-12-27 11:48] LABS: BASOPHILS 0.2 % (0-2); EOSINOPHILS 1.4 % (0-7); HEMATOCRIT 44.6 % (36.0-48.0); HEMOGLOBIN 14.3 g/dL (12-16); IMMATURE GRANULOCYTES 0.3 % (0-5); LYMPHOCYTES 19.7 % (15-50); MCH 31.8 pg (26.0-34.0); MCHC 32.1 g/dL (31.0-37.0); MCV 99.3 fL (80.0-100.0); MEAN PLATELET VOLUME 9.7 fL (7.4-10.4); NEUTROPHILS 74.4 % (40-80); PLATELET COUNT 310 10x3/uL (130-400); RBC 4.49 10x6/uL (4.00-5.40); RDW 13.5 % (11.5-14.5); WBC 9.2 10x3/uL (4.8-10.8)
[2019-12-27 11:55] LABS: ALBUMIN 3.6 g/dL (3.4-5.0); ANION GAP 9.5 mmol/L (8-16); BILIRUBIN - TOTAL 0.23 mg/dL (0.2-1.3); CALCIUM 9.2 mg/dL (8.5-10.1); CARBON DIOXIDE 31.7 mmol/L (21.0-32.0); CREATININE - SERUM 0.9 mg/dL (0.6-1.3); PHOSPHOROUS 4.1 mg/dL (2.5-4.9); POTASSIUM - SERUM 4.2 mmol/L (3.5-5.1); PROTEIN - SERUM 7.6 g/dL (6.4-8.2); T4 THYROXIN - FREE 1.11 ng/dL (0.76-1.46); THYROID STIMULATING HORMONE 3.92 uIU/mL (0.36-3.74); URIC ACID 6.7 mg/dL (2.6-7.2)
[2019-12-27 12:37] LABS: PLT FUNCT.(P2Y12) PLAVIX 218 PRU (194-418)
[2019-12-27 13:46] LABS: BACTERIA MODERATE /hpf (NEGATIVE); BILIRUBIN NEGATIVE (NEGATIVE); GLUCOSE NEGATIVE (NEGATIVE); KETONE NEGATIVE (NEGATIVE); NITRITE NEGATIVE (NEGATIVE); RED CELLS - URINE 0-5 /hpf (0-5); SPECIFIC GRAVITY 1.015 (1.005-1.020); UROBILINOGEN NORMAL (NORMAL); WHITE CELLS - URINE OCC /hpf (NEGATIVE)
[2019-12-28] VITALS (42 sets, daily range): BP systolic 90–130; BP diastolic 46–73; BMI 29.7; BMI 35.4
[2019-12-28] MEDS ORDERED: TOPROL XL25 MG PO (05:47)
--- NOTE | 2019-12-28 08:30 | NUR ---
PATIENT HAS A 1/2 BY 1/2 INCH BRUSE A LITTLE ABOVE HER RIGHT ILIAC CREST PRIOR TO SURGERY
--- NOTE | 2019-12-28 11:13 | NUR ---
UNABLE TO CHART FOR BILATERAL LEG 10FR FLAT DRAINS.
--- NOTE | 2019-12-28 14:22 | NUR ---
PT RECIEVED TO CV06 FROM SURGERY. VENT PER ETT. R IJ CVL WITH CVP AND FLUIDS INFUSING. R RADIAL FILEMON, R FEMORAL FILEMON. CT X 3 TO 20 CM SUCTION. NO LEAKS. IZABELA DRAIN X 2 WITH BULBS COMPRESSED. BILATERAL LEG SURINDER DRAINS WITH BULBS COMPRESSED. YASMINGS CDI.
--- NOTE | 2019-12-28 14:31 | NUR ---
DR WISE CALLED BACK TO ROOM SEE ANESTHESIA NOTES. RIGHT FEMORAL LINE STARTED.
--- NOTE | 2019-12-28 14:45 | NUR ---
HR WAS A-FIB ON ARRIVAL. CONVERTED TO NSR.
--- NOTE | 2019-12-28 16:05 | NUR ---
INITIATED 1 PRBC PER VERBAL ORDER FROM DR WISE.
--- NOTE | 2019-12-28 17:10 | NUR ---
BP IS TRENDING DOWN HERMILO GTT BEING TITRATED TO MAINTAIN BP > 90. DR WISE UPDATED.
[2019-12-28 17:15] LABS: HEMATOCRIT 36.1 % (36.0-48.0); HEMOGLOBIN 11.8 g/dL (12-16); MCH 31.3 pg (26.0-34.0); MCHC 32.7 g/dL (31.0-37.0); MCV 95.8 fL (80.0-100.0); MEAN PLATELET VOLUME 9.4 fL (7.4-10.4); PLATELET COUNT 189 10x3/uL (130-400); RBC 3.77 10x6/uL (4.00-5.40); RDW 13.8 % (11.5-14.5); WBC 21.6 10x3/uL (4.8-10.8)
[2019-12-28 17:22] LABS: PROTIME 15.1 SECONDS (11.6-15.0)
[2019-12-28 17:29] LABS: APTT 47.1 SECONDS (22.8-39.4); INR 1.2 (0.85-1.17)
--- NOTE | 2019-12-28 17:38 | NUR ---
RECEIVED PATIENT TO ROOM CV06 AND PLACED ON VENTILATOR AT 1428 (AC 14/450/100%/5) 1503: ABG DECREASED FIO2 TO 40% PER ABG 1708: PATIENT BEGAN TO AWAKE SWITCHED TO SIMV 14/450/10/40%/5 1735: DECREASED RATE TO 12
[2019-12-28 17:51] LABS: EOSINOPHILS 2 % (0-7); LYMPHOCYTES 8 % (15-50); MONOCYTES 3 % (2-11); NEUTROPHILS 84 % (40-80); PLATELET ESTIMATE NORMAL
--- NOTE | 2019-12-28 20:40 | NUR ---
NOTIFIED OF ABG'S AND NIF/VITAL RESULTS ANG CURRENT V/S & GTT'S, INFORMED PT DROWSY, WAKES EASY AND FOLLOWS COMMANDS, PT PAIN CONTROL MEDS AND ALLERGIES REVIEWED WITH , ORDERS RECEIVED TO GIVE MORPHINE FOR PAIN CONTROL, VENTILATE OVERNIGHT, GIVE 250ML NS, AND TRANSFUSE ONE UNIT PRBC, NO REPEAT ABG'S S/P BLOOD TRANSFUSION, NO FURTHER AT THIS TIME, WILL CONTINUE TO MONITOR, INFORMED FERMIN RT ABOUT ORDERS TO VENTILATE OVERNIGHT
--- NOTE | 2019-12-28 20:41 | NUR ---
PLACED PT ON A RATE AND WILL LEAVE ON VENT OVERNIGHT. RN WILL BE GIVING PAIN MED SO PT CAN REST.
--- NOTE | 2019-12-28 22:03 | NUR ---
ONE UNIT PRBC STARTED PER ORDERS, PT VSS, NSR ON CM, WILL CONTINUE TO MONITOR
[2019-12-29] VITALS (46 sets, daily range): BP systolic 106–140; BP diastolic 59–74; Ht 152.4 cm; Wt 74.1 kg
--- NOTE | 2019-12-29 03:00 | NUR ---
REASSESSMENT COMPLETED, NO ACUTE CHANGES FROM PRIOR ASSESSMENT, PT WAKES EASY WITH MINIMAL STIMULI, REPOSITIONED FOR COMFORT, VSS, WILL CONTINUE TO MONITOR
[2019-12-29 06:07] LABS: HEMATOCRIT 37.4 % (36.0-48.0); HEMOGLOBIN 12.4 g/dL (12-16); MCHC 33.2 g/dL (31.0-37.0); MEAN PLATELET VOLUME 9.8 fL (7.4-10.4); RDW 14.9 % (11.5-14.5)
[2019-12-29 06:16] LABS: MCV 93.5 fL (80.0-100.0)
[2019-12-29 06:40] LABS: ALKALINE PHOSPHATASE 79 U/L (30-120); ALT (SGPT) 28 U/L (10-68); BILIRUBIN - TOTAL 0.62 mg/dL (0.2-1.3); CARBON DIOXIDE 23.8 mmol/L (21.0-32.0); CHLORIDE - SERUM 109 mmol/L (98-107); GLUCOSE 142 mg/dL (74-106); MAGNESIUM - SERUM 1.9 mg/dL (1.8-2.4); PHOSPHOROUS 3.3 mg/dL (2.5-4.9); POTASSIUM - SERUM 3.9 mmol/L (3.5-5.1); SODIUM 141 mmol/L (136-145)
[2019-12-29 07:04] LABS: ALBUMIN 2.2 g/dL (3.4-5.0); CALC OSMOLALITY 281 mosm/kg (275-300); CREATININE - SERUM 0.6 mg/dL (0.6-1.3); PROTEIN - SERUM 4.4 g/dL (6.4-8.2); UREA NITROGEN 10 mg/dL (7-18); eGFR NON AFRICAN AMERICAN > 90 mL/min (90-120)
[2019-12-29 07:05] LABS: CALCIUM 6.8 mg/dL (8.5-10.1)
--- NOTE | 2019-12-29 10:45 | NUR ---
EXTUBATED PER RT. TOLERATED WELL. NOW ON 3L NC.
--- NOTE | 2019-12-29 12:25 | OP ---
PATIENT NAME: CARMELO SANABRIA MEDICAL RECORD: [id number] :58 LOCATION[facility] ADMISSION DATE:12/28/19 SURGEON: SAL WISE MD DATE OF OPERATION: 12/28/2019 SURGEON: Sal Wise MD SMOKE CONTROL SUPERVISOR: KYLEE Quiroz MD PROCEDURE PERFORMED: Coronary artery bypass graft times 3 (left internal mammary artery to LAD, reverse saphenous vein graft from aorta to second obtuse marginal and aorta to posterior descending artery). PREOPERATIVE DIAGNOSES: Coronary artery disease with in-stent restenosis and left main coronary artery stenosis. POSTOPERATIVE DIAGNOSES: Coronary artery disease with in-stent restenosis and left main coronary artery stenosis, supraventricular tachycardia. ANESTHESIA: General endotracheal anesthesia. ESTIMATED BLOOD LOSS: Total cardiopulmonary bypass with Cell Saver retransfusion. COMPLICATIONS: Postoperative atrial fibrillation and supraventricular tachycardia requiring esmolol and amiodarone, resolved. SPECIMENS: None. CONDITION: Stable. DISPOSITION: CV ICU. OPERATIVE FINDINGS: 1. Transesophageal echocardiography revealed moderate left ventricular hypertrophy, good global heart function and trace mitral regurgitation. These were unchanged after separation from cardiopulmonary bypass as well as later when the patient had supraventricular tachycardia prior to moving to CV ICU. 2. No greater saphenous vein found below the knee on either side for endoscopic harvest. Bridging incision was performed starting at the groin on both sides. 3. Left internal mammary artery was a reasonable conduit about 3-mm and the LAD was 1.5-mm. 4. The right internal mammary artery was only 2-mm or less vessel that bifurcated early and was harvested, but after cannulation and dilatation with papaverine did not dilate to an appropriate size to use for bypass grafting. The left radial artery had been studied preoperatively with maximal size 3-mm down to 2-mm and therefore was not used. 5. Fatty heart. 6. Second obtuse marginal 1.5-mm. 7. Posterior descending artery 1.0-mm vessel, anastomosis with 8-0 Prolene, would not expect long-term patency of the small graft. 8. First obtuse marginal was small and not grafted as it was a significant mismatch for the vein. 9. The patient was stable after separation from cardiopulmonary bypass for at least 45 minutes put on movement from the operating table to the transport OPERATIVE REPORT [id number] CARMELO SANABRIA stretcher, the patient had supraventricular tachycardia returned to the operative table for resuscitation, eventually amiodarone with resolution of rhythm. Then, transesophageal echocardiography was performed with no change in the findings, good contractility. No wall motion abnormalities, mild metabolic acidosis and hypocalcemia, ionized calcium was corrected. OPERATION INDICATION: Coronary artery disease with in-stent restenosis and progressive disease with left main coronary artery stenosis, anticoagulation with Effient. OPERATIVE PROCEDURE IN DETAIL: The patient was brought to the operative suite. General anesthesia was obtained. The patient was prepped and draped. Greater saphenous vein exploration was performed below both knees and the site of endoscopic vein harvest; however, none was found. Therefore, incisions were made in both groins and taken out from the thighs with a good vein. Side branches were clipped or tied and the legs were later closed in 2 layers with a drain on the right. Median sternotomy incision was made. Subcutaneous tissue was divided by electrocautery. Sternum was divided with a saw. The left hemisternum was elevated. Left pleural cavity was entered. Left internal mammary artery and vein was taken down as a pedicle graft. The right hemisternum was elevated and the right pleural cavity was entered. Right internal mammary artery was visualized and noted to be small. With relatively early bifurcation, it was felt possibly to be usable for the first obtuse marginal; however, after takedown as a skeletonized graft and cannulation with the small olive tip needle and dilatation with papaverine it did not dilate to a reasonable size and it was not used. Sternal retractor was placed. Pericardium was opened. Heparin had been given prior to taking down the right internal mammary and the activated clotting was appropriately elevated. Aorta was cannulated. Dual-stage venous cannula was inserted and the patient was placed on cardiopulmonary bypass. Sites for distal anastomosis were selected. The patient's temperature drifted downwardly. Antegrade cardioplegia needle was inserted. Crossclamp was placed. Cardioplegia given antegrade and this was repeated at 15 to 20 minute intervals including down the completed vein grafts. Distal anastomosis was performed in a standard technique. Proximal anastomosis with single cross-clamp technique. The aortic root was de-aired by removing the clamp, venting the root, tying the proximal anastomoses, venting the vein graft and restoring the flow. Good Doppler signal in the internal mammary artery and the obtuse marginal graft, but poor flow consistent with a handheld injection of the posterior descending artery graft. The patient was fully rewarmed, weaned from cardiopulmonary bypass and was stable. The patient was decannulated. The cannula sites were oversewn. Protamine was given. Atrial and ventricular pacing wires were placed. Drains were placed in mediastinum, both pleural cavities. Pericardial fat was loosely reapproximated. Both chests were evacuated and irrigated. The internal mammary harvest site was inspected for bleeding. Sternum was closed with wires. Fascia was closed. Subcutaneous tissue was closed. Skin was closed. Dermabond was placed. The needle and sponge counts reported correct and as above the patient was transported, had supraventricular tachycardia, required further pharmacologic OPERATIVE REPORT [id number] CARMELO SANABRIA intervention and then eventually stable to ICU. TRANSINT:[id number] Voice Confirmation ID: [id number] DOCUMENT ID: [id number] SAL WISE MD at 1225 CC: LEANN FOWLER M.D. and RENATA MITCHELL [id number] DICTATION DATE: 12/28/19 1420 JANITOR HEAD: 12/28/19 1558 ADM IN [place] [id number] [place] [address]
--- NOTE | 2019-12-29 14:30 | NUR ---
BILATERAL LEG SURINDER DRAINS DC'D. LEG DRSGS CHANGED.
--- NOTE | 2019-12-29 14:45 | NUR ---
Sky MATT PRESSURE HELD FOR 5 MIN THEN APPLIED PRESSURE YASMING.
--- NOTE | 2019-12-29 16:30 | NUR ---
ASSISTED PT UP TO SIDE OF BED. AFTER SITTING UP FOR 10 MIN. ASSISTING TO STANDING POSITION. BED LINEN CHANGED. ASSISTED PT BACK TO BED. TOLERATED WELL. COUGH IS GETTING STRONGER. VS REMAIN STABLE.
--- NOTE | 2019-12-29 17:00 | NUR ---
PTS CALLED AND UPDATE GIVEN. HE REQUESTED FACETIME WITH HIS BUT SHE REFUSED AND SAID SHE DIDNT FEEL UP TO IT YET. HE SAID TO CALL HIM ANYTIME WHEN SHE WANTED TO TALK.
--- NOTE | 2019-12-29 21:45 | NUR ---
PT AAOx4, NOT MOVING BODY R/T GENERALIZED PAIN/DISCOMFORT, PT DOES NOT RATE PAIN ON NUMERIC SCALE WHEN ASKED AND HAS A FLAT WITHDRAWN AFFECT, PT VISIABLY IN DISCOFORT AND INCREASED WITH ANY MOVEMENT OF BODY AND LINES/TUBES, DISCUSSED WITH PT ABOUT PAIN CONTROL, INFORMED OF MEDICATION AND REVIEWED ALLERGIES WITH PT, PT STATED " I DONT CARE WHAT I GET" AND THEN STATED " YALL ARE JUST TRYING TO KILL ME". INFORMED PT THAT WAS INCORRECT AND NURSE IS ADVOCATE FOR PT, PT VSS AT THIS TIME, WILL CONTINUE TO MONITOR
--- NOTE | 2019-12-29 22:00 | NUR ---
PT REFUSING TO TRY ICE CHIPS OR ICE WATER TO ASSESS SWALLOWING ABILITY, PT PURSES LIPS CLOSED AND REFUSES, DISCUSSED THOROUGHLY WITH PT ABOUT CARE AND MEDICATION TREATMENT POST-OP, PT AWAKE AND ALERT TO PERSON/PLACE/TIME AND EVENT, PT ABLE TO MAKE NEEDS KNOWN CLEARLY, BOTTOM HOOP DRIVER HUSSAIN WARD AT BEDSIDE, PT CONTINUES TO REFUSE MEDICATIONS AND TREATMENTS, INFORMED WILL BE NOTIFIED OF REFUSING TO TAKE MEDICATIONS, PT HAS FLAT AFFECT AND CONTINUES REFUSING ALL EFFORTS, ALL VSS, NSR ON CM, WILL CONTINUE TO MONITOR AND NOTIFY PHYSICIAN
--- NOTE | 2019-12-29 22:28 | NUR ---
DR. WISE CALLED AND NOTIFIED OF PT REFUSING; MEDICATIONS, ICE CHIPS, WATER/ OTHER DRINKS, OR OTHER CARE EFFORTS AND TREATMENTS, EXPLAINED PT PSYCOSOCIAL AFFECT TO AND PAIN/DISCOMFORT WITH CURRENT V/S AND RHYTHM ON CM, STATED PSYCHIATRIC CONSULT WILL BE PLACED/CALLED TOMORROW AND THAT HE IS AWARE OF PT REFUSALS. ASKED FOR OTHER PAIN CONTROL MEDICATION OR ROUT OF MEDICATION ADMIN, NO NEW ORDERS RECEIVED, STATED "SHE CAN HAVE PEROCET THATS ON eMAR". NO FURTHER AT THIS TIME WILL CONTINUE TO MONITOR, INFORMED COUNTER POCKET TRIMMER AMANDA.
--- NOTE | 2019-12-29 23:04 | NUR ---
CALLED [facility], PASSWORD VERIFIED, UPDATE GIVEN INCLUDING V/S AND PSYCHOSOCIAL STATUS AND MEDICATION/PAIN TREATMENT, NO FURTHER QUESTIONS OR CONCERNS AT THIS TIME, PLEASED WITH CARE AND WILL CALL TOMORROW DURING DAY, PT VSS, APEARS TO BE SLEEPING WITH EYES CLOSED, AROUSES TO MINIMAL STIMULI, ATTEMPTS TO GIVE PO ICE CHIPS AND WATER REFUSED BY PT, WILL CONTINUE TO ASSESS AND POC
[2019-12-30] VITALS (24 sets, daily range): BP systolic 94–138; BP diastolic 56–75
--- NOTE | 2019-12-30 | NUR ---
AFTER NUMEROUS ATTEMPTS TO DANGLE AT BEDSIDE UNSUCCESSFUL, EXPLAINING THE BENEFITS AND RATIONAL FOR SITTING UP AT BEDSIDE, PT CONTINUES TO REFUSES REFUSES ICE CHIPS OR WATER TO DRINK, VSS, NSR ON CM, WILL CONTINUE TO MONITOR
--- NOTE | 2019-12-30 02:00 | NUR ---
I/S ATTEMPTED WITH MUCH ENCOURAGEMENT FOR THE PT TO TRY, POOR EFFORT AND MINIMAL VOLUME INSPIRED WITH I/S, WEAK COUGH NOTED, PT REFUSES PAIN MEDICATION AND PO FLUIDS OR ICE CHIPS, PT IS UNABLE TO BE ENCOURAGED OR REASONED WITH ABOUT HEALTH STATUS AND BELEIVES SHE IS "NOT GOING TO MAKE IT", PT HAS NO RATIONAL WHY SHE FEELS THIS WAY BUT IS RELEIVED BREIFLY OF ANXIETY WITH DISCUSSION OF CURRENT V/S, REPOSITIONED PT WITH BED D/T PT NOT WANTING TO BE MOVED AND GETS IRRITABLE WITH RN FOR REPOSITIONING NIBP CUFF
[2019-12-30 06:20] LABS: HEMATOCRIT 39.7 % (36.0-48.0); HEMOGLOBIN 12.7 g/dL (12-16); MCH 31.1 pg (26.0-34.0); MEAN PLATELET VOLUME 9.5 fL (7.4-10.4); RBC 4.08 10x6/uL (4.00-5.40); RDW 15.3 % (11.5-14.5)
[2019-12-30 06:21] LABS: WBC 18.6 10x3/uL (4.8-10.8)
[2019-12-30 06:22] LABS: MCV 97.3 fL (80.0-100.0)
[2019-12-30 06:44] LABS: ALBUMIN 2.2 g/dL (3.4-5.0); ALKALINE PHOSPHATASE 79 U/L (30-120); ALT (SGPT) 25 U/L (10-68); BILIRUBIN - TOTAL 0.31 mg/dL (0.2-1.3); CALCIUM 7.4 mg/dL (8.5-10.1); CARBON DIOXIDE 29.7 mmol/L (21.0-32.0); CHLORIDE - SERUM 106 mmol/L (98-107); CREATININE - SERUM 0.7 mg/dL (0.6-1.3); GLUCOSE 140 mg/dL (74-106); POTASSIUM - SERUM 3.9 mmol/L (3.5-5.1); PROTEIN - SERUM 5.1 g/dL (6.4-8.2); SODIUM 141 mmol/L (136-145); eGFR NON AFRICAN AMERICAN 90 mL/min (90-120)
[2019-12-30 06:46] LABS: CALC OSMOLALITY 280 mosm/kg (275-300); PHOSPHOROUS 2.4 mg/dL (2.5-4.9); UREA NITROGEN 6 mg/dL (7-18)
--- NOTE | 2019-12-30 07:45 | NUR ---
SHIFT REPORT RECEIVED. RESTING IN BED. AWAKE AND ALERT. SHAKES HEAD NO WHEN ASKED IF SHE IS IN PAIN. ON 2L O2 VIA NC. 02 SAT 94%. SOUNDS VERY CONGESTED. CRAKCLES AUDIBLE THROUGH OUT LUNG FIELD. COUGH VERY WEAK. DOES NOT PULL ANY VOLUME ON INSENTIVE SPIROMETER. TEACHING PROVIDED ON IMPORTANCE OF INSENTIVE SPIROMETER EXERCISES AND COUGH DEEP BREATHING EXERSICES. PT STATES THAT SHE CAN'T BREATH DUE TO HER HEART. ASSURED HER THAT VITALS ARE STABLE. HAS A LOW GRADE FEVER OF 100.3 CRITICORE SHAW. MIDSTERNAL INCISION DRESSING C/D/I. SUBSTERNAL CT X 3 TO 20CM SUCTION. NO AIR LEAK NOTED. R AND L IZABELA DRAIN IN PLACE WITH SEROSANG DRAINAGE NOTED. BILATERAL LE HARVEST SITES DRESSING C/D/I. SHAW CATHETER IN PLACE WITH CONCENTRATED URINE NOTED. MEAL TRAY BROUGHT IN ROOM. PT REFUSED TO TRY ANY OF THE FOOD. WATER OFFERED. PT REFUSED. SAFETY MEASURES IN PLACE. WILL CONTINUE TO MONITOR.
--- NOTE | 2019-12-30 08:47 | TEE ---
PATIENT:CARMELO SANABRIA MEDICAL RECORD: [id number] LOCATION:[place] [address] AGE OF PATIENT: 59 ADMISSION DATE: 12/28/19 SEX: F REFERRING PHYSICIAN: INTERPRETING PHYSICIAN: KAITLIN WOOD MD TRANSESOPHAGEAL ECHOCARDIOGRAM Date: 12/28/19 JACKIE CHARGE Y INDICATIONS: CABG PREMEDICATIONS: PATIENT'S RESPONSE PROCEDURE DOPPLER MEASUREMENTS: LVIT LA 3.0 PA RA LVOT RVOT Asc. Ao AV Gradient Peak AV Mean AV Area MV Gradient Peak MV Mean MV Area INTERPRETATION: Doppler: 2-D: COLOR FLOW DOPPLER NORMAL SALINE STUDY: MISCELLANOUS: DIAGNOSIS: PLAN: Aeronautical Inspector:3 Dr. Owens Athletic Coordinator: Vinh GASCA COMMENTS: DATE OF SERVICE: PROCEDURE: Intraoperative JACKIE. Preop: Normal LV wall motion, wall thickening, estimated EF 60%. Aortic valve is tricuspid without significant aortic insufficiency and good valve excursion. Left atrium appears normal. Mitral valve with trivial MR. Right-sided chambers are grossly normal. Trivial TR. TRANSESOPHAGEAL ECHOCARDIOGRAM REPORT [id number] CARMELO SANABRIA Postop: LV function remains normal with normal wall thickening. No significant AI. No significant MR. TRANSINT:[id number] Voice Confirmation ID: [id number] DOCUMENT ID: [id number] at 0847 CC: [id number] DICTATION DATE: 12/29/19 1118 BOX LINING MACHINE OPERATOR: 12/29/19 1209 ADM IN [facility] [address] [place] [address]
--- NOTE | 2019-12-30 10:20 | NUR ---
SHAW CATHETER CD'D AT THIS TIME PER DR. WISE'S ORDER.
--- NOTE | 2019-12-30 11:12 | NUR ---
UNABLE TO GIVE PO MEDS. PT REFUSES TO DRINK WATER. STATES THAT SHE CAN'T BREATHE. HR 100 SINUS TACHYCARDIC, BP 113/61, O2 SAT 97% ON 2L NC. ICE CHIPS PROVIDED. PT WOULD NOT TAKE ICE CHIPS. TEACHING PROVIDED ON COUGH DEEP BREATHING AND I.S. EXERCISES. TO HELP PREVENT PNEUMONIA.
--- NOTE | 2019-12-30 12:00 | NUR ---
CALL RECEIVED FROM PATIENT SON LEANN. UNABLE TO VERIFY PASS CODE. WRONG PASS CODE PROVIDED. INFORMED HIM THAT WITHOUT CORRECT PASS CODE I COULD NOT PROVIDE INFORMATION. HE STARTED TO GET UPSET. CONSENT ACQUIRED FROM PT TO GIVE INFORMATION. GAVE BRIEF UPDATE. HE STATED CONCERN REGARDING PT RECEIVING MORPHINE. HE SAID SHE IS ALLERGIC BUT HE COULD NOT PROVIDE TYPE OF REACTION. PHONE NUMBER TO ROOM GIVEN. WILL ATTEMPT TO CALL PATIENT LATER IN THE DAY.
--- NOTE | 2019-12-30 12:04 | NUR ---
UP TO CHAIR WITH PT. PT ENCOURAGED TO COUGH, DEEP BREATH AT THIS TIME. NEEDS CONSTANT ENCOURAGEMENT WITH I.S. AND COUGHING. TOOK SMALL SIP OF WATER AT THIS TIME. NO FURTHER NEEDS. WILL CONTINUE TO MONITOR.
--- NOTE | 2019-12-30 12:38 | NUR ---
PHONE IN ROOM RINGING. PT ASLEEP. NURSE ANSWERED PHONE. SON LEANN CALLING WANTING TO SPEAK WITH PT. WAS TOLD PT WAS ASLEEP. HE BROUGHT UP MORPHINE CONCERN AGAIN. ASSURED HIM THAT DR. WISE'S NURSE WOULD BE NOTIFIED OF HIS CONCERN. HE WAS NOT SATISFIED. ASKED TO SPEAK TO ADMINISTRATION. HE WAS ASKED TO CALL THE NURSE'S DESK SO HE COULD GET PHONE NUMBER FOR SIGHTER BUT HE HUNG UP THE PHONE AND DID NOT CALL BACK. SIGHTER NOTIFIED OF HIS CONCERNS AND THAT HE WANTED TO SPEAK WITH HER. DR. WISE'S NURSE NOTIFIED OF PT'S SON'S CONCERNS.
--- NOTE | 2019-12-30 13:02 | NUR ---
DR. WISE NOTIFIED OF SON'S CONCERNS REGARDING MORPHINE ALLERGY.
--- NOTE | 2019-12-30 13:12 | NUR ---
ORDER FOR PSYCH CONSULT FAXED TO [facility].
--- NOTE | 2019-12-30 13:57 | NUR ---
NEEDS CONTINUED TEACHING ON INSENTIVE SPIROMETER AND COUGH DEEP BREATH. STILL DOES NOT PULL ANY VOLUME ON I.S. AND COUGH REMAINS WEAK AND NON-PRODUCTIVE.
--- NOTE | 2019-12-30 15:30 | NUR ---
REASSESSMENT COMPLETED. CONTINUES UP IN CHAIR. COUGH CONTINUES TO BE WEAK. DOES NOT PULL ANY VOLUME WITH INSENTIVE SPIROMETER. STATES "I CAN'T." REFUSED DRINK OF WATER. WILL CONTINUE TO MONITOR.
--- NOTE | 2019-12-30 17:38 | NUR ---
BATH GIVEN AT THIS TIME. COMPLETE LINEN CHANGE PROVIDED. MARY LOWER EXTREMITY DRESSING CHANGED. IODINE OINTMENT APPLIED. VALENTINO IN PLACE. RIJ CVL DRESSING CHANGED. STERILE TECHNIQUE USED. MEAL TRAY DELIVERED AND SET UP. PT REFUSING TO EAT OR DRINK AT THIS TIME. STATED "MAYBE LATER." NO FURTHER NEEDS AT THIS TIME. WILL CONTINUE TO MONITOR.
[2019-12-30 21:15] LABS: BILIRUBIN NEGATIVE (NEGATIVE); GLUCOSE NEGATIVE (NEGATIVE); KETONE MODERATE mg/dL (NEGATIVE); NITRITE NEGATIVE (NEGATIVE); SPECIFIC GRAVITY 1.025 (1.005-1.020); UROBILINOGEN NORMAL (NORMAL)
[2019-12-30 21:17] LABS: RED CELLS - URINE 0-5 /hpf (0-5); WHITE CELLS - URINE 0-5 /hpf (NEGATIVE)
[2019-12-30 21:18] LABS: AMORPHOUS SEDIMENT <1+ /lpf (NONE SEEN); BACTERIA FEW /hpf (NEGATIVE); EPITHELIAL CELLS 0-5 /hpf (0-5)
--- NOTE | 2019-12-30 21:51 | NUR ---
PT REFUSED ATIVAN, COLACE AND 1 SENNA. EDUCATED ON PURPOSE AND PT CONTINUES TO REFUSE. ATTEMPTED IS WITH 250 OR LESS ACHIEVED. PT CONTINUES REQUESTING SMALL POSITION FREQUENTLY DURING MEDICATION ADMINISTRATION. PT WOULD ONLY TAKE SMALL SIPS OF WATER. FLUIDS ENCOURAGED WITH COUGHING AND DEEP BREATHING. PT COUGHING UP SMALL AMOUNTS OF BROWNISH SECRETIONS. CALL LIGHT IN REACH. WILL CONTINUE TO OBSERVE.
[2019-12-31] VITALS (24 sets, daily range): BP systolic 84–120; BP diastolic 31–78
--- NOTE | 2019-12-31 00:41 | NUR ---
PT REPOSITIONED FOR COMFORT. PT EATING PUDDING AT THIS TIME. CALL LIGHT IN REACH. WILL CONTINUE TO OBSERVE.
--- NOTE | 2019-12-31 03:55 | NUR ---
PT ASSISTED TO BEDSIDE COMMODE WITH URINE ONLY NOTED WITH FLATULANCE NOTED. PT BACK IN BED. VITAL SIGNS STABLE. TOLERATED WELL. CALL LIGHT IN REACH. WILL CONTINUE TO OBSERVE.
[2019-12-31 06:35] LABS: ALBUMIN 1.9 g/dL (3.4-5.0); ALKALINE PHOSPHATASE 85 U/L (30-120); ALT (SGPT) 22 U/L (10-68); BILIRUBIN - TOTAL 0.46 mg/dL (0.2-1.3); CALC OSMOLALITY 283 mosm/kg (275-300); CALCIUM 7.9 mg/dL (8.5-10.1); CHLORIDE - SERUM 106 mmol/L (98-107); CREATININE - SERUM 0.6 mg/dL (0.6-1.3); GLUCOSE 106 mg/dL (74-106); MAGNESIUM - SERUM 2.1 mg/dL (1.8-2.4); POTASSIUM - SERUM 3.6 mmol/L (3.5-5.1); PROTEIN - SERUM 5.2 g/dL (6.4-8.2); SODIUM 143 mmol/L (136-145); eGFR NON AFRICAN AMERICAN > 90 mL/min (90-120)
[2019-12-31 06:44] LABS: UREA NITROGEN 9 mg/dL (7-18)
[2019-12-31 07:20] LABS: HEMATOCRIT 37.5 % (36.0-48.0); HEMOGLOBIN 11.6 g/dL (12-16); MCH 30.8 pg (26.0-34.0); MCHC 30.9 g/dL (31.0-37.0); RBC 3.77 10x6/uL (4.00-5.40); RDW 14.9 % (11.5-14.5); WBC 16.2 10x3/uL (4.8-10.8)
[2019-12-31 07:22] LABS: MCV 99.5 fL (80.0-100.0)
--- NOTE | 2019-12-31 13:18 | NUR ---
Nutrition Follow-up: POD 3 CABG. Appetite improving. Tolerated solids this AM. Denies N/V, chewing/swallowing difficulties. Diet: Cardiac Wt: 165.3# (12/30); 196.2# (12/28) - noted I/Os (-1496 cc 12/29) Last BM: 12/26 per pt Labs noted: Ca 7.9, PO4 2.0, Alb 1.9 Meds noted: Protonix, Senokot, Colace, Micro K, KCl -Encourage PO intake and honor food preferences within diet restrictions. -Offer nutrition supplements. -Monitor wt. -RD following.
--- NOTE | 2019-12-31 15:48 | CN ---
PATIENT NAME:CARMELO SANABRIA MEDICAL RECORD: [id number] : 56 LOCATION:[facility] ADMIT DATE: 12/28/19 ACCOUNT: [id number] CONSULTING PHYSICIAN: MITCH EDDY MD REFERRING PHYSICIAN: LUCI WISE MD DATE OF CONSULTATION: 12/30/2019 IDENTIFYING DATA: The patient is 59 years old and she is known to me from previous clinical contact. CHIEF COMPLAINT: None. HISTORY OF PRESENT ILLNESS: The patient underwent coronary artery bypass grafting yesterday. Postoperatively, she has done well. She is, however, refusing or uncooperative with care. She is, however, denying that this is true. She tells me that she is "doing the best she can." She also tells me that she has not refused medications, which is contrary to what I have been told by her nurse. She denies auditory or visual hallucinations. Denies thoughts of wanting to harm herself or others. She says she is not depressed, but then individually she endorses numerous neurovegetative depressive symptoms. She denies a history of substance abuse. ASSESSMENT: 1. Adjustment disorder with mixed emotional features. 2. Probable depressive illness. 3. 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 PLAN: The patient clearly has evidence of a passive dependent personality. She is not acutely dangerous and is not a direct risk to herself or others. Her lack of cooperation is of concern and it is inconsistent with and illogical from the standpoint of someone who says she wants to get better and go home. Unfortunately, this inconsistency is the hallmark of a personality disorder of her kind. I think the use of antidepressant medication is reasonable, but unlikely to have any significant effect during the course of this hospitalization because of the lag time between when it started and when it becomes effective. With regard to the anxiolytic effects of a benzodiazepine, I think that is perfectly reasonable and appropriate to try and I will order both medications. I do have concerns about the long-term use of a benzodiazepine and by that I mean more than 30 days and if that seems to be necessary I would recommend her primary care doctor, referre her to outpatient mental health services. I have spoken with her nurse about ways to manage her and chan point of that it would be not to engage her in a prolonged exchange about why she needs to cooperate. Doing so only reinforces her passive dependency to resist. She is cognizant and fully capable of making reasonable informed consent decisions. I recommend that she be instructed on what to do, asked if she understands or needs clarification, then she refuses. She would likely benefit from outpatient psychotherapy and I have recommended this to her, but she says she does not want to participate. TRANSINT:[id number] Voice Confirmation ID: [id number] DOCUMENT ID: [id number] CONSULT REPORT [id number] CARMELO SANABRIA, MITCH CARO at 1548 CC: [id number] DICTATION DATE: 12/30/19 1655 GREENHOUSE LABORER: 12/30/19 1720 ADM IN [place] [id number] [place] [address]
--- NOTE | 2019-12-31 18:15 | NUR ---
0715-RECIEVED UP IN CHAIR-REFUSING TO DO INCENTIVE-STATES PAIN TO SEVERE-OFFERED TO GIVE PAIN MEDICINE-PT REFUSED STATING I DON'T IF I CAN TAKE IT-GAVE PT NAME ON ANALGESIC-CONTINUE TO REFUSE BOTH PARTICIPATION AND PAIN MEDICINE-DOES NOT CLARIFY WHY-NOTED SWELLING IN BOTH HAND -L HAND COLD TO TOUCH-PALPABLE RADIAL-MOVED NIBP TO R ARM-NOTED L FOOT COLD TO TOUCH NO JOSE ARMANDO-EDEMATOUS AND JOSE ARMANDO REFUSED BY PT -WEAK PULSE-ENOCOURAGED TO MOVE LEGS-STATED NO PULLING ON TAPE TO LEG INCISIONS-SR ON MONITOR 0830-AMBULATED TO REST ROOM WITH AID OF 2 RNS-SLOW-C/O OF SEVERE INCISIONAL PAIN-REFUSED ANALGESIC 0850-RETURNED TO CHAIR-MONITOR SHOWS UCAF 174-NIBP-PT VERBALIZED CHEST FEELS FUNNY-DR WISE NOTIFIED OF SAME 1015CORDARONE 150MG IV BOLUS STARTED -ASSISTED PT TO BED WITH ASSIST OF TWO 1040-LOPRESSOR 2.5MG IVP GIVEN-DR WOOD AT BEDSIDE 100-CORDARONE GTT AT 1MG/MIN-ATRIAL FLUTTER 157-PT VOICING CONCERN REGARDING SAME-STRESSED BY DR WISE AND NURSE OCCURS BUT WILL BE IMPROVED WITH TAKING MEDICATION AND ADHERING TO RESP TX-PT NON COMPLIANT-VENT TEMP PACER WIRE PLACED AND SET AT 60/10 VVI-PT STATED I FEEL THAT -NOTED HR 156-WITH SENSING ON PACER-CANCHOLA ADJUSTED TO 5 1145-DIGOXIN GIVEN ORDERED-AFIB [id number] TO SR 69 1345-PHYSICALT THERAPY AT BEDSIDE-DR WISE SPOKE WITH PT REGARDING PAIN MEDICATION-PT REFUSING PAIN MEDICATION REGIMEN-STATES NEEDS PAIN MEDICINE BUT WILL ONLY NYUNTA-USES AT HOME-NO FURTHER ORDERS AT THIS-AMBULATED SLOWLY WITH PHYSICAL [id number] TO BED-REFUSED CHAIR- 1500-PT ASLEEP -SR ON MONITOR- 1630-AWAKENED PT FOR MEAL AND RESP TX-PT CRYING AND STATED IN PAIN --STRESSED PERCOCET 5 AND NO ALLERGY LISTED WITH IT -REFUSED STATED TOOK IN PAST AND DIDN'T LIKE HOW IT MADE ME FEEL 1830-CONTINUED TO REQUEST NUYCYNTA-CALLED PHARMACY TO REQUEST INFO ON MEDICATION-NOTED NOT STOCKED BY [facility] [place]-WOULD HAVE TO BRING FROM HOME-DR WISE NOTIFIED OF SAME-NO CHANGE IN ORDERS AT THIS TIME
--- NOTE | 2019-12-31 19:30 | NUR ---
REPORT REC'D AND CARE ASSUMED, PT RESTING IN BED O2 @ 2 LITERS VIA NC, PT COMPLAINS OF NEEDING SOMETHING FOR PAIN, DAYSHIFT NURSE EXPLAINED SHE SPOKE TO PHARMACY AND DR. WISE REGARDING PAIN MEDICATION NUCYNTA THAT PATIENT TAKES AT HOME, PT INFORMED DR. WISE WOULD NOT OKAY HOME MEDICATION. RIGHT UPPER ARM PICC LINE WITH NEXTERONE INFUSING @ 0.5MG/MIN OR 16.7CC/HR, CM-SR @ 83, MIDSTERNAL DRSG CDI, SUBSTERNAL DRSG CDI VENTRICAL P/M WIRE NOTED, P/M OFF, GENERALIZED EDEMA TO ALL EXT'S, BILAT HARVEST SITES TO RIGHT AND LEFT LEG, VALENTINO OPEN TO AIR, WELL APPROXIMATED, PT MAEE, PPP, SR UP X 2, BED IN LOW POSITION, VISIBLE TO NURSES STATION.
--- NOTE | 2019-12-31 20:30 | NUR ---
PT REQUESTING HELP TO FIND CALL LIGHT, CALL LIGHT TUCKED UNDER PILLOWS IN BED WITH PATIENT, PAGE WITH CHANNELS FOR TV PROVIDED, ASKED PATIENT IF SHE WOULD LIKE A PERCOCET WITH HER EVENING MEDICATION, STATES "NO BECAUSE I AM ALLERGIC", INFORMED PATIENT IT WAS NOT LISTED ONE HER ALLERGIES, EXPLAINED SHE HAD HYDROCODONE LISTED, ATTEMPTED TO EXPLAIN THE DIFFERENCE BETWEEN PERCOCET AND HYDROCODONE, PT STATES " I DON'T CARE I AM ALLERGIC SO NO I DO NOT WANT IT"
--- NOTE | 2019-12-31 21:06 | NUR ---
EVENING MEDS GIVEN WITHOUT DIFFICULTY, PT IN OBVIOUS DISCOMFORT, BUT CONTINUES TO REFUSE PAIN MEDICATION OFFERED, BP 93/46, CM-SR 77, WILL CONT TO MONITOR FOR CHANGES.
--- NOTE | 2019-12-31 23:05 | NUR ---
REASSESSMENT COMPLETED, PT RESTING IN BED, REMAINS ORIENTED X 4, DENIES PAIN, ASKING QUESTIONS REGARDING HEART, STATES " WILL MY HEART BE ALRIGHT?", EXPLAINED TO PT HER HEART RATE AND RHYTHM WERE DOING WELL TONIGHT, EMPATHIZED WITH PT, STATED SHE HAD GRANCHILDREN AT HOME AND SHE HAS " ALOT TO LIVE FOR". DENIES NEEDS, SR UP X 2, CALL LIGHT AND DEISY IN REACH, VISIBLE TO NURSES STATION.
[2020-01-01] VITALS (22 sets, daily range): BP systolic 95–113; BP diastolic 47–66
--- NOTE | 2020-01-01 | NUR ---
PT ASSISTED UP TO BATHROOM X 1 ASSIST, VOIDED MODERATED AMOUNT CONCENTRATED URINE, ASSISTED BACK TO BED AND REPOSITIONED UP IN BED FOR COMFORT, VSS, TOLERATED WELL.
--- NOTE | 2020-01-01 02:30 | NUR ---
PT RESTING IN BED EYES CLOSED, RESP EVEN AND UNLABORED, VSS, WILL CONT TO MONITOR FOR CHANGES.
--- NOTE | 2020-01-01 05:00 | NUR ---
RADIOLOGY AT BS FOR AM CXR
--- NOTE | 2020-01-01 05:45 | NUR ---
CHG BATH PROVIDED AND DRSGS CHANGED TO SUBSTERNAL AREA AND BILAT UPPER THIGHS, SITES CLEANED WITH CHG, PAINTED WITH BETADINE, SUBSTERNAL AREA COVERED WITH 4X4'S AND LARGE TEGADERM, BIOPATCHES PLACED AROUND P/M WIRE INSERTION SITES, UPPER THIGH INCISIONS PAINTED WITH BETADINE AND COVERED WITH 4X4'S AND MEDIPORE TAPE.
--- NOTE | 2020-01-01 06:30 | NUR ---
PT ASSISTED UP TO RECLINER, HAIR COMBED AND PT BRUSHED TEETH, FRESH ICE WATER PROVIDED AND AM MEDS GIVEN, AM LAB DRAWN FROM PICC AND SENT TO LAB.
[2020-01-01 06:48] LABS: HEMATOCRIT 35.1 % (36.0-48.0); HEMOGLOBIN 10.9 g/dL (12-16); MCH 30.9 pg (26.0-34.0); MCHC 31.1 g/dL (31.0-37.0); MCV 99.4 fL (80.0-100.0); MEAN PLATELET VOLUME 9.2 fL (7.4-10.4); RBC 3.53 10x6/uL (4.00-5.40); RDW 14.7 % (11.5-14.5)
[2020-01-01 06:49] LABS: WBC 11.7 10x3/uL (4.8-10.8)
[2020-01-01 07:03] LABS: ALKALINE PHOSPHATASE 98 U/L (30-120); BILIRUBIN - TOTAL 0.37 mg/dL (0.2-1.3); CALC OSMOLALITY 284 mosm/kg (275-300); CALCIUM 7.9 mg/dL (8.5-10.1); CARBON DIOXIDE 31.3 mmol/L (21.0-32.0); CHLORIDE - SERUM 105 mmol/L (98-107); CREATININE - SERUM 0.6 mg/dL (0.6-1.3); GLUCOSE 115 mg/dL (74-106); MAGNESIUM - SERUM 2.1 mg/dL (1.8-2.4); PHOSPHOROUS 2.3 mg/dL (2.5-4.9); POTASSIUM - SERUM 3.8 mmol/L (3.5-5.1); PROTEIN - SERUM 5.5 g/dL (6.4-8.2); SODIUM 143 mmol/L (136-145); UREA NITROGEN 11 mg/dL (7-18); eGFR NON AFRICAN AMERICAN > 90 mL/min (90-120)
[2020-01-01 07:07] LABS: ALT (SGPT) 33 U/L (10-68)
--- NOTE | 2020-01-01 08:41 | PN ---
PATIENT:CARMELO SANABRIA MEDICAL RECORD: [id number] LOCATION:[facility].CV0 ADMISSION DATE: 12/28/19 PROGRESS NOTE DATE OF SERVICE: 12/31/2019 SUBJECTIVE: The patient's case was discussed with staff. She has no new complaint. OBJECTIVE: The patient is in good behavioral control with limited insight about her situation. She does tolerate her medicines reasonably well. She is much more cooperative with staff and certainly has no thoughts of harming herself. ASSESSMENT: Major depression. PLAN: Current medications have been reviewed. There is no change in what I would recommend and no change in what I think would be appropriate for her followup. She is significantly better. TRANSINT:[id number] Voice Confirmation ID: [id number] DOCUMENT ID: [id number] MITCH EDDY MD at 0841 CC: [id number] DICTATION DATE: 12/31/19 1556 SYSTEM SUPPORT DEVELOPER: 12/31/192024 ADM IN [facility] [address] [place] [address]
--- NOTE | 2020-01-01 19:40 | NUR ---
REPORT REC'D AND CARE ASSUMED, REC'D PT RESTING IN BED EYES CLOSED, RESP EVEN AND UNLABORED ON O2 @ 2 LITERS VIA NC, PT AWAKENS EASILY TO VERBAL STIMULI, ORIENTED X 4, RIGHT NECK DRSG TO PREVIOUS RIJ CDI, MIDSTERNAL DRSG CDI, RIGHT UPPER ARM PICC LINE, DRSG CDI, BOTH PORTS SALINE LOCKED, SUBSTERNAL DRSG CDI, P/M WIRES NOTED, SUBSTERNAL IZABELA DRAINS X 2 COMPRESSED WITH SEROSANGUINOUS DRAINAGE, BILATERAL LEG INCISIONS, DRSGS TO UPPER INCISIONS CDI, VALENTINO OPEN TO AIR, WELL APPROXIMATED, PPP, SR UP X 2, CALL LIGHT IN REACH.
--- NOTE | 2020-01-01 21:00 | NUR ---
EVENING MEDS GIVEN, PT ASSISTED UP AND ASSISTED TO BATHROOM, PT VOIDED, BACK TO BED AND REPOSITIONED UP IN BED FOR COMFORT, HEELS BRIDGED, AND ARMS ELEVATED ON PILLOWS, SPLINTING PILLOW AND CALL LIGHT IN REACH.
--- NOTE | 2020-01-01 23:00 | NUR ---
REASSESSMENT COMPLETED, PT RESTING EYES CLOSED, RESP EVEN AND UNLABORED,VSS.
[2020-01-02] VITALS (23 sets, daily range): BP systolic 87–122; BP diastolic 47–70
--- NOTE | 2020-01-02 03:00 | NUR ---
RADIOLOGY AT BS FOR AM CXR
--- NOTE | 2020-01-02 05:30 | NUR ---
AM LAB DRAWN FROM PICC LINE AND SENT TO LAB, PT DOES NOT WANT UP AT THIS TIME WOULD LIKE TO WAIT CLOSER TO BREAKFAST, WILL CONT TO MONITOR .
[2020-01-02 06:02] LABS: HEMATOCRIT 30.1 % (36.0-48.0); HEMOGLOBIN 9.4 g/dL (12-16); MCH 30.9 pg (26.0-34.0); MCHC 31.2 g/dL (31.0-37.0); MEAN PLATELET VOLUME 9.1 fL (7.4-10.4); RBC 3.04 10x6/uL (4.00-5.40); RDW 14.6 % (11.5-14.5); WBC 8.9 10x3/uL (4.8-10.8)
[2020-01-02 06:14] LABS: ALBUMIN 1.7 g/dL (3.4-5.0); ALKALINE PHOSPHATASE 89 U/L (30-120); ALT (SGPT) 46 U/L (10-68); BILIRUBIN - TOTAL 0.37 mg/dL (0.2-1.3); CALC OSMOLALITY 277 mosm/kg (275-300); CALCIUM 7.4 mg/dL (8.5-10.1); CARBON DIOXIDE 32.5 mmol/L (21.0-32.0); CHLORIDE - SERUM 105 mmol/L (98-107); CREATININE - SERUM 0.7 mg/dL (0.6-1.3); GLUCOSE 105 mg/dL (74-106); PHOSPHOROUS 3.4 mg/dL (2.5-4.9); POTASSIUM - SERUM 3.9 mmol/L (3.5-5.1); PROTEIN - SERUM 4.7 g/dL (6.4-8.2); SODIUM 140 mmol/L (136-145); UREA NITROGEN 11 mg/dL (7-18); eGFR NON AFRICAN AMERICAN 90 mL/min (90-120)
--- NOTE | 2020-01-02 09:46 | NUR ---
AMBULATING WITH PHYSICAL THERAPY
--- NOTE | 2020-01-02 15:40 | NUR ---
1130-DR WISE AT BEDSIDE -HAD PT DEMONSTRATE AMOUNT COULD DO ON INCENTIVE [id number] PLAN OF CURRENT TREATMENT AND STRESSED IMPORTANCE OF AMBULATION AND EXPECTING IMPROVEMENT OF INCENTIVE SPIROMETRY-PT APPEARS ACCEPTING 1230-DR CHAPPELL AT BEDSIDE-REVIEWED STRONG NEED TO WORK WITH INCENTIVE SPIROMETRY-AND STATED DUE TO CXR SHOWS ATELACTASIS-PT GIVES ASSENT AND UNDERSTANDING TO IMPROVE FREQUENCY AND EFFORT-ASSISTED BACK TO CHAIR 1315-PHYSICAL THERAPY AT BEDSIDE AND ASSISTED WITH AMBULATION-VOCALIZED MARKED IMPROVEMENT IN STRIDE AND EFFORT REMAINS UP IN CHAIR-WORKING WITH INCENTIVE WITHOUT PRODDING-CONTINUES AT 500ML-MAKING GOOD EFFORT TO IMPROVE 1430-AMBULATED WITH PT ON ROOM AIR AND NO WALKER IN HALLWAY-TOLERATED WELL-AGREED EASILY TO RETURN TO CHAIR-WORKING WITH INCENTIVE
--- NOTE | 2020-01-02 19:40 | NUR ---
PT RECEIVED UP IN CHAIR. VITAL SIGNS STABLE. NO NEEDS NOTED AT THIS TIME.
--- NOTE | 2020-01-02 21:35 | NUR ---
PT IN BED WATCHING TV. RECEIVED MEDICATIONS REFUSING COLACE, SENNA, AND BACTRABAN OINTMENT. PT TRANSFERRED SELF FROM CHAIR TO BED AFTER GOING TO BATHROOM. AMBULATES WITHOUT DIFFICULTY. CALL LIGHT IN REACH. WILL CONTINUE TO OBSERVE.
[2020-01-03] VITALS (23 sets, daily range): BP systolic 82–120; BP diastolic 45–65
--- NOTE | 2020-01-03 00:14 | NUR ---
PT SLEEPING WITH SPO2 DROPPING INTO 80'S. PT PLACED ON 2LPM N/C WITH SPO2 AT 95%. WILL CONTINUE TO OBSERVE
--- NOTE | 2020-01-03 03:06 | NUR ---
PT UP TO BATHROOM WITHOUT DIFFICULTY. PT SLOW GETTING OUT OF BED AND GETTING BACK IN. GAIT SLOW AND STEADY. WILL CONTINUE TO OBSERVE. CALL LIGHT IN REACH.
--- NOTE | 2020-01-03 04:26 | NUR ---
IMAGING HERE TO TAKE PT FOR CHEST PA AND LAT VIA WHEELCHAIR.
--- NOTE | 2020-01-03 05:41 | NUR ---
BLOOD DRAWN AND SENT TO LAB. PT UP IN CHAIR SINCE RETURNING FROM IMAGING. PT STATES SHE WANTS TO WAIT TIL LATER FOR BATH. MEDICATIONS GIVEN TOLERATED WELL. WILL CONTINUE TO OBSERVE.
[2020-01-03 06:02] LABS: HEMATOCRIT 32.3 % (36.0-48.0); MCH 30.6 pg (26.0-34.0); MCV 98.8 fL (80.0-100.0); MEAN PLATELET VOLUME 9.1 fL (7.4-10.4); RBC 3.27 10x6/uL (4.00-5.40); RDW 14.4 % (11.5-14.5); WBC 9.1 10x3/uL (4.8-10.8)
[2020-01-03 06:31] LABS: ALBUMIN 1.9 g/dL (3.4-5.0); ALKALINE PHOSPHATASE 97 U/L (30-120); ALT (SGPT) 44 U/L (10-68); CALC OSMOLALITY 274 mosm/kg (275-300); CALCIUM 8.1 mg/dL (8.5-10.1); CARBON DIOXIDE 31.2 mmol/L (21.0-32.0); CHLORIDE - SERUM 103 mmol/L (98-107); CREATININE - SERUM 0.7 mg/dL (0.6-1.3); GLUCOSE 106 mg/dL (74-106); PROTEIN - SERUM 5.3 g/dL (6.4-8.2); SODIUM 138 mmol/L (136-145); UREA NITROGEN 10 mg/dL (7-18); eGFR NON AFRICAN AMERICAN 90 mL/min (90-120)
--- NOTE | 2020-01-03 09:57 | CN ---
PATIENT NAME:CARMELO SANABRIA MEDICAL RECORD: [id number] : 56 LOCATION:[facility]CV06 ADMIT DATE: 12/28/19 ACCOUNT: [id number] CONSULTING PHYSICIAN: KAITLIN WOOD MD REFERRING PHYSICIAN: LUCI WISE MD DATE OF CONSULTATION: 12/31/2019 HISTORY OF PRESENT ILLNESS: A 59-year-old female with a history of coronary artery disease, status post coronary artery bypass grafting, preoperatively had normal LV function. Postop JACKIE shows again normal LV function. Left atrial dimension was normal. No significant mitral valve pathology. Had a history of tachycardia prior to surgery. Postoperative atrial fibrillation, being loaded with Cordarone. PAST MEDICAL HISTORY: Includes; 1. History of hypertension. 2. Hyperlipidemia. 3. Coronary artery disease as described above. ALLERGIES: DEMEROL, DILAUDID. HOME MEDICATIONS: Include albuterol 2 puffs every 6 hours, Flexeril 10 mg p.o. t.i.d., Praluent 75 mg every 2 weeks, metoprolol 25 b.i.d., aspirin 81 every day, Ativan 1 p.o. t.i.d., Synthroid 125 mcg every day. PHYSICAL EXAMINATION: GENERAL: Pleasant female in no acute distress, alert and oriented. VITAL SIGNS: Pulses 155, blood pressure 118/67. NECK: No bruits are noted. HEART: Irregular, tachycardic. I do not hear a rub. LUNGS: Actually fairly good air excursion. ABDOMEN: Soft, nontender. EXTREMITIES: Pulse 2+. No edema. IMPRESSION AND PLAN: Postoperative atrial fibrillation, agree with amiodarone load and drip. We will additionally add one dose of digoxin. Thank you for the consultation. TRANSINT:[id number] Voice Confirmation ID: [id number] DOCUMENT ID: [id number] KAITLIN WOOD MD at 0957 CC: [id number] DICTATION DATE: 12/31/19 1039 MANAGER TECHNICAL TRAINING: 12/31/19 1303 ADM IN [facility] [id number] [place] [address]
--- NOTE | 2020-01-03 12:17 | NUR ---
Nutrition follow-up: Diet: Low sodium PO intake ~50% average of meals Labs reviewed Wt: 175# POD 6 PO intake fair at this time RDN following.
--- NOTE | 2020-01-03 15:43 | MORECARE ---
CASE MANAGEMENT DISCHARGE SUMMARY PATIENT: CARMELO LISA UNIT: [id number] ADM DATE: 12/28/19 AGE: 59 : 56 SEX: F ROOM/BED: D.06 AUTHOR: VENKAT,DOC PHYSICIAN: REFERRING PHYSICIAN: LUCI WISE MD DATE OF SERVICE: 01/03/20 Discharge Plan Patient Name: CARMELO LISA Facility: [facility]:[place] : 1960 Planned Disposition: Home Anticipated Discharge Date: Discharge Date: Expected LOS: Initial Reviewer: [email or web address] Initial Review Date: 12/28/2019 Generated: 01/03/20 4:43 pm Comments DCP- Discharge Planning Updated by [email or web address]: Nadiya Horton on 01/03/20 2:[address] Plans: Return home with spouse. Request a Hospital Bed. CM contacted patient in her room [phone] regarding DC needs/plans. Patient lives at home with her Independently with spouse, Yogesh Lisa #[phone]. PCP: Dr. Garcia. [facility]acy[facility]. DME: ORLIN jung. Patient REQUEST A HOSPITAL BED be delivered to her home, due to not being able to get into her bed (too high). Permission to speak with her . Denies use of Community resources, HHS, Rehab, SNF. Patient feels her home is a safe environment. States she has 8 steps with a rail and a ramp from the garage. Spouse will drive her home upon DC. DCPIA - Discharge Planning Initial Assessment Updated by [email or web address]: Nadiya Horton on 01/03/20 3:40 pm * Is the patient Alert and Oriented? Yes * How many steps to enter\exit or inside your home? 8/rails. * PCP Dr. Gacria * [facility] * Preadmission Environment Home with Family * ADLs Independent * Equipment Bedside Commode Walker * Other Equipment NA * List name and contact numbers for known caregivers / representatives who currently or will assist patient after discharge: Yogesh Lisa [phone] * Verbal permission to speak to the caregivers and representatives has been obtained from the patient. Yes * Community resources currently utilized None * Additional services required to return to the preadmission environment? Yes * Can the patient safely return to the preadmission environment? No * Has this patient been hospitalized within the prior 30 days at any hospital? Yes Patient Name: CARMELO LISA Page [phone] at 1543 All edits/amendments must be made on the electronic document DICTATION DATE: 01/03/201542 BENCH PRESS OPERATOR: PATSY 01/03/201542 RPT#: [id number] DC DATE: STATUS: ADM IN [facility] [address] [place] [address] END OF REPORT
--- NOTE | 2020-01-03 17:33 | NUR ---
0700 pt recieved up in chair alert an doriented vss denies pain see shift assessment for details 0900 ate 75% breakfast and took am meds without difficulty ambulated with therapy gave self chg bath 1200 ate 100% lunch ambulated with therapy ate 75% dinner
--- NOTE | 2020-01-03 19:10 | NUR ---
PT RECEIVED UP IN CHAIR, WATCHING TV. NO NEEDS MADE KNOWN. CALL LIGHT IN REACH. WILL CONTINUE TO OBSERVE.
--- NOTE | 2020-01-03 22:36 | NUR ---
PT UP TO RESTROOM, AND IN BED PER REQUEST. RECIEVED MEDICATIONS PER MAR. SUBSTERNAL DRESSING CHANGED AND DRESSING TO HARVEST SITED, TOLERATED WELL. NO OTHER NEEDS MADE KNOWN. CALL LIGHT IN REACH. WILL CONTINUE TO OBSERVE.
[2020-01-04] VITALS (23 sets, daily range): BP systolic 81–113; BP diastolic 44–71
[2020-01-04 05:42] LABS: HEMATOCRIT 30.3 % (36.0-48.0); HEMOGLOBIN 9.5 g/dL (12-16); MCH 30.7 pg (26.0-34.0); MCHC 31.4 g/dL (31.0-37.0); MCV 98.1 fL (80.0-100.0); MEAN PLATELET VOLUME 8.8 fL (7.4-10.4); RBC 3.09 10x6/uL (4.00-5.40); RDW 14.5 % (11.5-14.5); WBC 9.1 10x3/uL (4.8-10.8)
[2020-01-04 06:21] LABS: ALBUMIN 1.8 g/dL (3.4-5.0); ALKALINE PHOSPHATASE 88 U/L (30-120); ALT (SGPT) 36 U/L (10-68); BILIRUBIN - TOTAL 0.31 mg/dL (0.2-1.3); CALC OSMOLALITY 275 mosm/kg (275-300); CALCIUM 7.6 mg/dL (8.5-10.1); CARBON DIOXIDE 33.5 mmol/L (21.0-32.0); CHLORIDE - SERUM 103 mmol/L (98-107); CREATININE - SERUM 0.7 mg/dL (0.6-1.3); GLUCOSE 108 mg/dL (74-106); POTASSIUM - SERUM 4.2 mmol/L (3.5-5.1); SODIUM 138 mmol/L (136-145); UREA NITROGEN 11 mg/dL (7-18); eGFR NON AFRICAN AMERICAN 90 mL/min (90-120)
--- NOTE | 2020-01-04 09:47 | NUR ---
0700 pt recived up in chair alert and oriented vss denies pain r picc dressing cdi, see shift assessment for details 0900 pt took am meds without difficulty and ate 100% breakfast 0930 ambulated with therapy
[2020-01-04] MEDS ORDERED: AMIODARONE HCL200 MG PO (10:05)
[2020-01-04] MEDS ORDERED: COLACE100 MG PO (10:12)
--- NOTE | 2020-01-04 13:47 | NUR ---
BOTH IZABELA DRAINS AND TPM WIRES DCD BY DR WISE
--- NOTE | 2020-01-04 19:15 | NUR ---
PT IN RESTING IN BEDSIDE CHAIR COMFORTABLY, PT AMBULATED WITH MINIMAL ASSIST TO BATHROOM, CLEAR YELLOW VOID NOTED, PT AMBULATED BACK TO BED AND REPOSITIONED FOR COMFORT, HOB ELEVATED, JOSE ARMANDO ESCAMILLA AND SCD'S ON BLE, ALL DRSG'S C/D/I, CALL LIGHT IN REACH, PT DENIES PAIN OR NEEDS AT THIS TIME, VSS, WILL CONTINUE TO MONITOR
--- NOTE | 2020-01-04 21:49 | NUR ---
PT OOB TO BATHROOM WITH MIMIMAL ASSIST, PT AMBULATED TO BATHROOM AND BACK TO BED WITHOUT ASSIST, REPOSITIONED FOR COMFORT, HOB ELEVATED, VSS, CALL LIGHT IN REACH, WILL CONTINUE TO MONITOR
[2020-01-05] VITALS (13 sets, daily range): BP systolic 94–107; BP diastolic 46–60
--- NOTE | 2020-01-05 02:00 | NUR ---
PT PRESSED CALL LIGHT, C/O GENERALIZED SHARP DISCOMFORT IN CHEST, REPOSITIONED IN BED AND ELEVATED HOB FOR COMFORT, PT STATED RELEIF OF CHEST DISCOMFORT, I/S COMPLETED 750 MLx10 TCDB DONE, VSS, NSR ON CM, NO FURTHER NEEDS AT THIS TIME WILL CONTINUE TO MONITOR
--- NOTE | 2020-01-05 04:00 | NUR ---
PT ASSISTED OUT OF BED TO BATHROOM, CLEAR YELLOW VOID NOTED, PT AMBULATED WITH MINIMAL ASSIST BACK TO BED, REPOSITIONED FOR COMFORT, ELEVATED HOB, SCD'S PLACED ON BLE, PT DENIES PAIN OR OTHER NEEDS AT THIS TIME, VSS, WILL CONTINUR TO MONITOR
--- NOTE | 2020-01-05 06:30 | NUR ---
PT ASSISTED OUT OF BED TO CHAIR, PT AMBULATED WITH MINIMAL ASSIST, REPOSITIONED FOR COMFORT, ALL DRSG'S C/D/I, VSS, NSR ON CM, CALL LIGHT IN REACH, LARGE CUP ICE WATER GIVEN PER REQUEST, WILL CONTINUE TO MONITOR
--- NOTE | 2020-01-05 09:45 | NUR ---
OUT OF CHAIR TO BATHROOM INDEPENDENTLY. VOIDED THEN BACK TO CHAIR.
--- NOTE | 2020-01-05 09:54 | NUR ---
Nutrition Follow-up: POD 8 CABG. Pt reports overall good/fair PO intake. Hoping to go home soon. Diet: Cardiac Wt: 163.1# (01/04) Last BM: 01/03 per pt Labs noted: Ca 7.6, Alb 1.8 Meds noted: Micro K, Protonix -Encourage PO intake and honor food preferences within diet restrictions. -Monitor wt. -RD following.
--- NOTE | 2020-01-05 10:30 | NUR ---
WALKED WITH PT FOR APPROX 500 FT. TOLERATED WELL. PT SIGN ED OFF
--- NOTE | 2020-01-05 14:42 | NUR ---
37 CM POWER PICC REMOVED FROM R BRACHIAL, NO BLEEDING NOTED. PT OPAL WELL AND INSTRUCTED TO LEAVE CLEAR OCCLUSIVE DRSG IN PLACE FOR 24 HOURS. VERBALIZED UNDERSTANDING BY REPEATING INSTRUCTIONS BACK.
--- NOTE | 2020-01-05 18:30 | MORECARE ---
CASE MANAGEMENT DISCHARGE SUMMARY PATIENT: CARMELO LISA UNIT: [id number] ADM DATE: 12/28/19 AGE: 59 : 56 SEX: F ROOM/BED: D.[facility] AUTHOR: VENKAT,DOC PHYSICIAN: REFERRING PHYSICIAN: LUCI WISE MD DATE OF SERVICE: 01/05/20 Discharge Plan Patient Name: CARMELO LISA Facility: [facility]:[place] : 1960 Planned Disposition: Home Anticipated Discharge Date: Discharge Date: 01/05/2020 Expected LOS: Initial Reviewer: [email or web address] Initial Review Date: 12/28/2019 Generated: 01/05/20 7:30 pm DCP- Discharge Planning Updated by [email or web address]: Nadiya Horton on 01/03/20 2:[address] Plans: Return home with spouse. Request a Hospital Bed. CM contacted patient in her room [phone] regarding DC needs/plans. Patient lives at home with her Independently with spouse, Yogesh Lisa #[phone]. PCP: Dr. Garcia. [facility]. DME: ORLIN jung. Patient REQUEST A HOSPITAL BED be delivered to her home, due to not being able to get into her bed (too high). Permission to speak with her . Denies use of Community resources, HHS, Rehab, SNF. Patient feels her home is a safe environment. States she has 8 steps with a rail and a ramp from the garage. Spouse will drive her home upon DC. DCPIA - Discharge Planning Initial Assessment Updated by [email or web address]: Nadiya Horton on 01/03/20 3:40 pm * Is the patient Alert and Oriented? Yes * How many steps to enter\exit or inside your home? 8/rails. * PCP Dr. Garcia * [facility] * Preadmission Environment Home with Family * ADLs Independent * Equipment Bedside Commode Walker * Other Equipment NA * List name and contact numbers for known caregivers / representatives who currently or will assist patient after discharge: Yogesh Lisa [phone] * Verbal permission to speak to the caregivers and representatives has been obtained from the patient. Yes * Community resources currently utilized None * Additional services required to return to the preadmission environment? Yes * Can the patient safely return to the preadmission environment? No * Has this patient been hospitalized within the prior 30 days at any hospital? Yes Coverage Notice Reviewer: [email or web address] Jazmyne Talley Notice Issued Date-Time: 01/04/2020 12:22 Notice Type: IM Discharge Notice Notice Delivered To: Patient Relationship to Patient: Self Hospital Sales Representative Name: Delivery Method: HAND - Hand Delivered Marie Days: Prior Verbal Notification: Recipient Understood Notice: Yes Recipient Signature: Yes Med Rec Note Co-signed by Attending: Coverage Notice Comment: Last DP export: 01/03/20 2:43 p Patient Name: CARMELO LISA Page [phone] at 1830 All edits/amendments must be made on the electronic document DICTATION DATE: 01/05/201829 DELIVERY MOTORCYCLE DRIVER: PATSY 01/05/201829 RPT#: [id number] DC DATE:01/05/20 STATUS: DIS IN [facility] [address] [place] [address] END OF REPORT
== END 2020-01-05 15:48 | disposition home or self-care (01) | DRG 236 ==
LOC: D.SDCHOLD 12-28 05:20 → D.CVICU 12-28 05:20 → D.SDCHOLD 12-28 07:30 → D.CVICU 12-28 14:22
PROVIDERS: Family Medicine; ADMIT Thoracic Surgery (Cardiothoracic Vascular Surgery); ATTEND Thoracic Surgery (Cardiothoracic Vascular Surgery)
PROC: 021109W Bypass Coronary Artery, Two Arteries from Aorta with Autologous Venous Tissue, Open Approach (ICD-10-PCS; 2019-12-28)
PROC: 06BY0ZZ Excision of Lower Vein, Open Approach (ICD-10-PCS; 2019-12-28)
PROC: 5A1221Z Performance of Cardiac Output, Continuous (ICD-10-PCS; 2019-12-28)
PROC: B245ZZ4 Ultrasonography of Left Heart, Transesophageal (ICD-10-PCS; 2019-12-28)
PROC: 02100Z9 Bypass Coronary Artery, One Artery from Left Internal Mammary, Open Approach (ICD-10-PCS; principal; 2019-12-28 07:30)
DX: I25.10 Atherosclerotic heart disease of native coronary artery without angina pectoris (principal); T82.855A Stenosis of coronary artery stent, initial encounter; I47.1 Supraventricular tachycardia; N39.0 Urinary tract infection, site not specified; D62 Acute posthemorrhagic anemia; E03.9 Hypothyroidism, unspecified; I10 Essential (primary) hypertension; K21.9 Gastro-esophageal reflux disease without esophagitis; F41.8 Other specified anxiety disorders; Y84.9 Medical procedure, unspecified as the cause of abnormal reaction of the patient, or of later complication, without mention of misadventure at the time of the procedure

== ENCOUNTER 2020-01-09 19:17 | Inpatient (IN) | payer MEDICARE ==
[~2020-01-09] VITALS: Ht 152.4 cm; Wt 72.1 kg
[~2020-01-09 19:17] MED LIST changes: +AMIODARONE HCL200 MG PO; +COLACE100 MG PO; +METOPROLOL; +TOPROL XL25 MG PO
--- NOTE | 2020-01-09 19:27 | NUR ---
AFTER TRIAGING PATIENT SHE INFORMED ME SHE WAS PREPARING TO COME TO ED TONIGHT ANYWAY BECAUSE OF DRAINAGE CHEST INCISION.
--- NOTE | 2020-01-09 19:58 | NUR ---
PT STERNUM SWABBED FOR CULTURE AND CLEANED THEN PACKED WITH GAUZE BY . PT TOLERATED WITH DISCOMFORT. PT REFUSED ALL PAIN MEDS
[2020-01-09 20:34] LABS: BASOPHILS 0.1 % (0-2); EOSINOPHILS 0.9 % (0-7); HEMATOCRIT 35.8 % (36.0-48.0); HEMOGLOBIN 11.1 g/dL (12-16); IMMATURE GRANULOCYTES 0.3 % (0-5); LYMPHOCYTES 10.9 % (15-50); MCH 31.3 pg (26.0-34.0); MCV 100.8 fL (80.0-100.0); MEAN PLATELET VOLUME 8.8 fL (7.4-10.4); MONOCYTES 7.4 % (2-11); NEUTROPHILS 80.4 % (40-80); RBC 3.55 10x6/uL (4.00-5.40); RDW 14.5 % (11.5-14.5); WBC 10.9 10x3/uL (4.8-10.8)
[2020-01-09 20:36] LABS: PLATELET COUNT 484 10x3/uL (130-400)
[2020-01-09 20:39] LABS: ANION GAP 11.4 mmol/L (8-16); CALCIUM 8.4 mg/dL (8.5-10.1); CARBON DIOXIDE 28.1 mmol/L (21.0-32.0); CREATININE - SERUM 0.9 mg/dL (0.6-1.3); POTASSIUM - SERUM 3.5 mmol/L (3.5-5.1)
[2020-01-09 20:45] LABS: ALBUMIN 2.6 g/dL (3.4-5.0); BILIRUBIN - TOTAL 0.28 mg/dL (0.2-1.3); PROTEIN - SERUM 6.6 g/dL (6.4-8.2)
[2020-01-09 21:00] VITALS: BP 122/71
--- NOTE | 2020-01-09 23:48 | NUR ---
RECEIVED FROM ER, A&O X4, MEDS AND HISTORY COMPLETE, BED IS LOW, SRX2, CALL LIGHT IN REACH, WILL CONTINUE PLAN OF CARE
[2020-01-10] VITALS (7 sets, daily range): BP systolic 136–150; BP diastolic 72–76; Ht 152.4 cm; Wt 72.1 kg
--- NOTE | 2020-01-10 05:53 | NUR ---
TIE LAYER ASSESSMENT HAS BEEN COMPLETED.
--- NOTE | 2020-01-10 19:20 | NUR ---
RECEIVED REPORT, WILL ASSUME CARE OF PT, PT IS CONCERNED ABOUT WHAT KIND OF INFECTION SHE HAS, SHE THINKS IT IS GETTING WORST, EXPLINED THEY HAVE CULTURE WOUNDS AND STARTED ANTIBONIC, BED IS LOW, SRX2, CALL LIGHT IN REACH, WILL CONTINUE PLAN OF CARE
[2020-01-11 01:12] VITALS: BP 146/71
--- NOTE | 2020-01-11 03:59 | NUR ---
I have reviewed this patient and I concur with the Shift Assessment completed by the Licensed Practical Nurse today this shift.
[2020-01-11 04:05] VITALS: BP 141/66
[2020-01-11 07:21] LABS: BASOPHILS 0.2 % (0-2); HEMATOCRIT 32.8 % (36.0-48.0); HEMOGLOBIN 10.1 g/dL (12-16); IMMATURE GRANULOCYTES 0.2 % (0-5); MCH 30.7 pg (26.0-34.0); MCHC 30.8 g/dL (31.0-37.0); MCV 99.7 fL (80.0-100.0); MEAN PLATELET VOLUME 8.7 fL (7.4-10.4); MONOCYTES 6.9 % (2-11); NEUTROPHILS 78.7 % (40-80); PLATELET COUNT 467 10x3/uL (130-400); RBC 3.29 10x6/uL (4.00-5.40); RDW 14.7 % (11.5-14.5); WBC 8.7 10x3/uL (4.8-10.8)
[2020-01-11 07:38] LABS: ALBUMIN 2.3 g/dL (3.4-5.0); ALKALINE PHOSPHATASE 108 U/L (30-120); ALT (SGPT) 21 U/L (10-68); BILIRUBIN - TOTAL 0.23 mg/dL (0.2-1.3); CALC OSMOLALITY 273 mosm/kg (275-300); CARBON DIOXIDE 28.5 mmol/L (21.0-32.0); CHLORIDE - SERUM 105 mmol/L (98-107); CREATININE - SERUM 0.8 mg/dL (0.6-1.3); GLUCOSE 102 mg/dL (74-106); POTASSIUM - SERUM 3.5 mmol/L (3.5-5.1); PROTEIN - SERUM 5.7 g/dL (6.4-8.2); SODIUM 139 mmol/L (136-145); VANCOMYCIN - TROUGH 20.8 ug/mL (10.0-20.0); eGFR NON AFRICAN AMERICAN 77 mL/min (90-120)
[2020-01-11 07:39] LABS: UREA NITROGEN 2 mg/dL (7-18)
[2020-01-11 07:53] VITALS: BP 120/74
[2020-01-11] MEDS ORDERED: KEFLEX500 MG PO (09:14)
[2020-01-11] MEDS ORDERED: FLORAJEN3 CAPS460 MG PO (09:14)
--- NOTE | 2020-01-11 10:18 | MORECARE ---
CASE MANAGEMENT DISCHARGE SUMMARY PATIENT: CARMELO SANABRIA UNIT: [id number] ADM DATE: 01/09/20 AGE: 59 : 56 SEX: F ROOM/BED: D.4240 AUTHOR: VENKAT,DOC PHYSICIAN: REFERRING PHYSICIAN: TUNDE CHAPPELL MD DATE OF SERVICE: 01/11/20 Discharge Plan Patient Name: CARMELO SANABRIA Facility: [facility]:[place] : 1960 Planned Disposition: Home Anticipated Discharge Date: 01/11/20 Discharge Date: Expected LOS: 2 Initial Reviewer: [email or web address] Initial Review Date: 01/11/2020 Generated: 01/11/20 11:17 am Comments DCP- Discharge Planning Updated by [email or web address]: Michell Lofton on 01/11/20 9:[address] Patient Name: CARMELO SANABRIA Admission Status: ER Accout number: [id number] Admission Date: 01-09-2020 : 1960 Admission Diagnosis: Attending: TUNDE CHAPPELL Current LOS: 2 Anticipated DC Date: 01-11-2020 Planned Disposition: Home Primary Insurance: [employer] ADV Discharge Planning Comments: CM met with patient to complete initial dc planning assessment. CM educated patient on the CM role and verbal consent given by patient to complete assessment. Patient lives at [address] [place] [address] in [place] with her spouse. At discharge patient plans to return and feels this is a safe discharge. CM discussed availability of home health, rehab services, and medical equipment. Patient denied known discharge needs at this time. CM will continue to follow and will assist as needed with dc plans/needs. Outside Sales Account Manager: Michell Lofton DCPIA - Discharge Planning Initial Assessment Updated by [email or web address]: Michell Lofton on 01/11/20 10:14 am * Is the patient Alert and Oriented? Yes * How many steps to enter\exit or inside your home? 8 wrails * PCP Dr. Garcia * Pharmacy [facility] in [place] * Preadmission Environment Home with Family * ADLs Partial Dependent * Partial ADLs (Assistance needed) Ambulation * Equipment Bedside Commode Walker * List name and contact numbers for known caregivers / representatives who currently or will assist patient after discharge: Yogesh duvall - [phone] * Verbal permission to speak to the caregivers and representatives has been obtained from the patient. Yes * Community resources currently utilized None * Additional services required to return to the preadmission environment? No * Can the patient safely return to the preadmission environment? Yes * Has this patient been hospitalized within the prior 30 days at any hospital? Yes Patient Name: CARMELO SANABRIA Page [phone] at 1018 All edits/amendments must be made on the electronic document DICTATION DATE: 01/11/20 1017 CELERY STRIPPER: PATSY 01/11/20 1017 RPT#: [id number] DC DATE: STATUS: ADM IN [facility] [address] [place] [address] END OF REPORT
--- NOTE | 2020-01-11 10:59 | NUR ---
AMBULATES WITH PT ASSIST. UP IN CHAIR WITH CALL LIGHT IN REACH. C/O PAIN TO RIGHT LEG. HEMATOMA NOTED. WILL MONITOR.
[2020-01-11] MEDS ORDERED: LASIX40 MG PO (11:41)
--- NOTE | 2020-01-11 13:22 | NUR ---
IV AND TELEMETRY DCD. DC PLANS GIVEN. UNDERSTANDING VOICED. ESCORTED TO CAR BY W/C.
--- NOTE | 2020-01-13 07:29 | MORECARE ---
CASE MANAGEMENT DISCHARGE SUMMARY PATIENT: CARMELO SANABRIA UNIT: [id number] ADM DATE: 01/09/20 AGE: 59 : 56 SEX: F ROOM/BED: D.6512 AUTHOR: VENKAT,DOC PHYSICIAN: REFERRING PHYSICIAN: TUNDE CHAPPELL MD DATE OF SERVICE: 01/13/20 Discharge Plan Patient Name: CARMELO SANABRIA Facility: [facility]:[place] : 1960 Planned Disposition: Home Anticipated Discharge Date: 01/11/20 Discharge Date: 01/11/2020 Expected LOS: 2 Initial Reviewer: [email or web address] Initial Review Date: 01/11/2020 Generated: 01/13/20 8:28 am Comments DCP- Discharge Planning Updated by [email or web address]: Michell Lofton on 01/11/20 9:[address] Patient Name: CARMELO SANABRIA Admission Status: ER Accout number: [id number] Admission Date: 01-09-2020 : 1960 Admission Diagnosis: Attending: TUNDE CHAPPELL Current LOS: 2 Anticipated DC Date: 01-11-2020 Planned Disposition: Home Primary Insurance: [employer] ADV Discharge Planning Comments: CM met with patient to complete initial dc planning assessment. CM educated patient on the CM role and verbal consent given by patient to complete assessment. Patient lives at [address] [place] [address] in [place] with her spouse. At discharge patient plans to return and feels this is a safe discharge. CM discussed availability of home health, rehab services, and medical equipment. Patient denied known discharge needs at this time. CM will continue to follow and will assist as needed with dc plans/needs. Truck Sales Representative: Michell Lofton DCPIA - Discharge Planning Initial Assessment Updated by [email or web address]: Michell Lofton on 01/11/20 10:14 am * Is the patient Alert and Oriented? Yes * How many steps to enter\exit or inside your home? 8 wrails * PCP Dr. Garcia * Pharmacy [facility] in [place] * Preadmission Environment Home with Family * ADLs Partial Dependent * Partial ADLs (Assistance needed) Ambulation * Equipment Bedside Commode Walker * List name and contact numbers for known caregivers / representatives who currently or will assist patient after discharge: Yogesh - jadiel - [phone] * Verbal permission to speak to the caregivers and representatives has been obtained from the patient. Yes * Community resources currently utilized None * Additional services required to return to the preadmission environment? No * Can the patient safely return to the preadmission environment? Yes * Has this patient been hospitalized within the prior 30 days at any hospital? Yes Last DP export: 01/11/20 9:18 a Patient Name: CARMELO SANABRIA Page [phone] at 0729 All edits/amendments must be made on the electronic document DICTATION DATE: 01/13/20728 PROP AND EFFECTS DESIGNER: PATSY 01/13/20728 RPT#: [id number] DC DATE:01/11/20 STATUS: DIS IN [facility] [address] [place] [address] END OF REPORT
== END 2020-01-11 13:23 | disposition home or self-care (01) | DRG 863 ==
LOC: D.ER 19:17 → D.M2 20:43
PROVIDERS: Emergency Medicine; Family Medicine; ADMIT Internal Medicine Nephrology; ATTEND Internal Medicine Nephrology
DX: T81.41XA Infection following a procedure, superficial incisional surgical site, initial encounter (principal); L02.213 Cutaneous abscess of chest wall; I25.110 Atherosclerotic heart disease of native coronary artery with unstable angina pectoris; J98.11 Atelectasis; Y83.9 Surgical procedure, unspecified as the cause of abnormal reaction of the patient, or of later complication, without mention of misadventure at the time of the procedure; I10 Essential (primary) hypertension; K21.9 Gastro-esophageal reflux disease without esophagitis; F41.8 Other specified anxiety disorders; E03.9 Hypothyroidism, unspecified; Z78.0 Asymptomatic menopausal state; Z87.891 Personal history of nicotine dependence

== ENCOUNTER 2020-01-14 22:47 | Observation (INO) | payer MEDICARE ==
[~2020-01-14] VITALS: Ht 152.4 cm; Wt 72.3 kg
[~2020-01-14 22:47] MED LIST changes: +FLORAJEN3 CAPS460 MG PO; +KEFLEX500 MG PO; +LASIX40 MG PO
[2020-01-14 23:29] LABS: BASOPHILS 0.2 % (0-2); EOSINOPHILS 2.1 % (0-7); HEMATOCRIT 36.1 % (36.0-48.0); HEMOGLOBIN 11.1 g/dL (12-16); IMMATURE GRANULOCYTES 0.1 % (0-5); LYMPHOCYTES 16.5 % (15-50); MCH 30.8 pg (26.0-34.0); MCHC 30.7 g/dL (31.0-37.0); MCV 100.3 fL (80.0-100.0); MEAN PLATELET VOLUME 8.7 fL (7.4-10.4); MONOCYTES 7.3 % (2-11); NEUTROPHILS 73.8 % (40-80); PLATELET COUNT 431 10x3/uL (130-400); RDW 14.6 % (11.5-14.5); WBC 8.1 10x3/uL (4.8-10.8)
[2020-01-14 23:36] LABS: APTT 32.2 SECONDS (22.8-39.4); INR 1.03 (0.85-1.17); PROTIME 13.5 SECONDS (11.6-15.0)
[2020-01-14 23:57] LABS: CALC OSMOLALITY 277 mosm/kg (275-300); CALCIUM 8.4 mg/dL (8.5-10.1); CARBON DIOXIDE 31.2 mmol/L (21.0-32.0); CHLORIDE - SERUM 103 mmol/L (98-107); CREATININE - SERUM 0.9 mg/dL (0.6-1.3); GLUCOSE 117 mg/dL (74-106); POTASSIUM - SERUM 3.6 mmol/L (3.5-5.1); SODIUM 140 mmol/L (136-145); UREA NITROGEN 8 mg/dL (7-18); eGFR NON AFRICAN AMERICAN 67 mL/min (90-120)
[2020-01-15] VITALS: BP 93/51
[2020-01-15 00:05] LABS: ALBUMIN 2.7 g/dL (3.4-5.0); ALKALINE PHOSPHATASE 116 U/L (30-120); ALT (SGPT) 18 U/L (10-68); BILIRUBIN - TOTAL 0.29 mg/dL (0.2-1.3); CKMB 0.8 U/L (0.0-3.6); CREATINE KINASE 35 UL (21-215); MAGNESIUM - SERUM 2.2 mg/dL (1.8-2.4); PROTEIN - SERUM 6.4 g/dL (6.4-8.2); TROPONIN-I < 0.017 ng/mL (0.000-0.060)
[2020-01-15 00:33] VITALS: BP 148/82
--- NOTE | 2020-01-15 01:20 | NUR ---
ADMIT TO ROOM 2116 FROM ER. ALERT/ORIENTED AND AMBULATORY. SALINE LOCK TO RFA. NONLABORED RESPIRATIONS ON ROOM AIR. TELEMETRY INITIATED, 76/SR. ADMISSION HISTORY AND ASSESSMENT COMPLETED. HOME MEDS REVIEWED/UPDATED. PLAN OF CARE INITIATED. CALL LIGHT IN REACH.
--- NOTE | 2020-01-15 02:30 | NUR ---
INSTRUCT ON NPO UNTIL SEEN BY ELECTROCARDIOGRAPH TECHNICIAN IN AM. PT VOICES UNDERSTANDING.
[2020-01-15 02:42] VITALS: BMI 29.7
[2020-01-15 03:52] LABS: BASOPHILS 0.3 % (0-2); EOSINOPHILS 2.2 % (0-7); HEMATOCRIT 34.4 % (36.0-48.0); HEMOGLOBIN 10.5 g/dL (12-16); IMMATURE GRANULOCYTES 0.1 % (0-5); MCH 30.6 pg (26.0-34.0); MCHC 30.5 g/dL (31.0-37.0); MCV 100.3 fL (80.0-100.0); MEAN PLATELET VOLUME 8.6 fL (7.4-10.4); MONOCYTES 7.5 % (2-11); NEUTROPHILS 74.9 % (40-80); PLATELET COUNT 406 10x3/uL (130-400); RBC 3.43 10x6/uL (4.00-5.40); RDW 14.9 % (11.5-14.5); WBC 7.2 10x3/uL (4.8-10.8)
[2020-01-15 04:26] LABS: CALC OSMOLALITY 283 mosm/kg (275-300); CALCIUM 8.2 mg/dL (8.5-10.1); CHLORIDE - SERUM 105 mmol/L (98-107); CKMB 0.9 U/L (0.0-3.6); CREATINE KINASE 32 UL (21-215); CREATININE - SERUM 0.9 mg/dL (0.6-1.3); GLUCOSE 110 mg/dL (74-106); MAGNESIUM - SERUM 2.1 mg/dL (1.8-2.4); PHOSPHOROUS 4.2 mg/dL (2.5-4.9); POTASSIUM - SERUM 3.7 mmol/L (3.5-5.1); SODIUM 143 mmol/L (136-145); UREA NITROGEN 8 mg/dL (7-18); eGFR NON AFRICAN AMERICAN 67 mL/min (90-120)
[2020-01-15 04:29] LABS: TROPONIN-I < 0.017 ng/mL (0.000-0.060)
[2020-01-15 04:49] VITALS: BP 160/78
--- NOTE | 2020-01-15 09:00 | NUR ---
PT AWAKE AND ORIENTED, VERY EMOTIONAL WHEN I ENTERED THIS AM. SHE KEPT ME IN THERE ROUGHY 10 MINUTES ASKING QUESTIONS OVER AND OVER, EXPRESSING CONCERNS THAT SHE'LL HAVE TO HAVE A HEART CATH. SHE STATES THE LAST ONE SHE HAD OT HAVE HURT VERY BAD AND SHE'S EXTREMELY ANXIOUS ABOUT IT. WHEN RE ENTERING TO ADMINISTER MEDICATIONS, PT REFUSED LOVENOX, STATING SHE DOESN'T FEEL GOOD TAKING ANYTHING. STATES SHE BELIEVES A LOT OF THIS MUST BE ANXIETY FROM HER PREVIOUS CABG. PT HAS BEEN IN MULTIPLE TIMES SINCE CABG ON THE PREMISE OF "NOT FEELING RIGHT". HAS BEEN CLEARED ALL PREVIOUS ADMITS. CL IN REACH, SRX2.
--- NOTE | 2020-01-15 10:00 | NUR ---
CL ON, WENT INTO ROOMAND PT REPEATED QUESTIONS FROM EARLIER TODAY. STATES AGAIN HOW ANXIOUS SHE IS ABOUT THE WHOLE AFFAIR. ATTEMPTED TO CALM PT, WILL ROUND SHORTLY TO ANSWER ANY OTHER QUESTIONS I'M UNABLE TO ANSWER.
[2020-01-15 10:44] VITALS: BP 158/82
[2020-01-15 10:59] VITALS: Ht 152.4 cm; Wt 72.3 kg
[2020-01-15 12:05] LABS: CKMB 0.7 U/L (0.0-3.6); CREATINE KINASE 33 UL (21-215)
[2020-01-15 12:06] LABS: TROPONIN-I < 0.017 ng/mL (0.000-0.060)
--- NOTE | 2020-01-15 12:10 | NUR ---
ADMINISTERED LOVENOX INJECTION SINCE PT FELT SHE NEEDED IT NOW. PT IS EXPECTING TO D/C LATER TODAY, ANXIETY STILL MODERATE. CL IN REACH,SRX2.
--- NOTE | 2020-01-15 12:15 | NUR ---
SPOKE WITH DR. CHURCH, HE STATED REMOVE VALENTINO, PLACE STERISTRIPS, AND ORDER ABX CREAM. WILL DO
--- NOTE | 2020-01-15 12:58 | NUR ---
REMOVED ALL 7 SETS OF VALENTINO PER MD ORDER. PT TOLERATED WELL. CALLED TO PICK HER UP, LIVES 1 HOUR AWAY.
--- NOTE | 2020-01-15 14:26 | NUR ---
PT ESCORTED OUT VIA WHEELCHIAR TO POV DRIVEN BY SON
== END 2020-01-15 14:27 | disposition home or self-care (01) ==
LOC: D.ER 22:47 → D.M2 01-15 00:16 → OBSVTIME 01-15 00:16 → D.M2 01-15 14:27
PROVIDERS: Family Medicine; ADMIT Family Medicine; ATTEND Family Medicine
DX: R07.9 Chest pain, unspecified (principal); I25.10 Atherosclerotic heart disease of native coronary artery without angina pectoris; I10 Essential (primary) hypertension; K21.9 Gastro-esophageal reflux disease without esophagitis; E03.9 Hypothyroidism, unspecified; F41.8 Other specified anxiety disorders; N95.9 Unspecified menopausal and perimenopausal disorder

== ENCOUNTER 2020-01-25 16:35 | Observation (INO) | payer MEDICARE ==
[~2020-01-25] VITALS: Ht 152.4 cm; Wt 81.2 kg
[2020-01-25 18:19] LABS: BASOPHILS 0.2 % (0-2); EOSINOPHILS 2.5 % (0-7); HEMATOCRIT 44.5 % (36.0-48.0); HEMOGLOBIN 13.8 g/dL (12-16); IMMATURE GRANULOCYTES 0.2 % (0-5); LYMPHOCYTES 16.4 % (15-50); MCH 31.3 pg (26.0-34.0); MCV 100.9 fL (80.0-100.0); NEUTROPHILS 73.7 % (40-80); PLATELET COUNT 297 10x3/uL (130-400); RBC 4.41 10x6/uL (4.00-5.40); RDW 14.6 % (11.5-14.5); WBC 8.4 10x3/uL (4.8-10.8)
[2020-01-25 18:33] LABS: CALCIUM 9.7 mg/dL (8.5-10.1); CARBON DIOXIDE 25.7 mmol/L (21.0-32.0); CHLORIDE - SERUM 101 mmol/L (98-107); CREATININE - SERUM 0.9 mg/dL (0.6-1.3); POTASSIUM - SERUM 4.9 mmol/L (3.5-5.1); SODIUM 141 mmol/L (136-145); UREA NITROGEN 14 mg/dL (7-18); eGFR NON AFRICAN AMERICAN 67 mL/min (90-120)
[2020-01-25 18:42] LABS: ALBUMIN 3.8 g/dL (3.4-5.0); ALKALINE PHOSPHATASE 128 U/L (30-120); ALT (SGPT) 27 U/L (10-68); BILIRUBIN - TOTAL 0.65 mg/dL (0.2-1.3); PROTEIN - SERUM 7.9 g/dL (6.4-8.2)
[2020-01-25 18:47] LABS: CALC OSMOLALITY 279 mosm/kg (275-300); GLUCOSE 69 mg/dL (74-106); TROPONIN-I < 0.017 ng/mL (0.000-0.060)
[2020-01-25 19:33] VITALS: BP 166/82
[2020-01-25 19:51] LABS: THYROID STIMULATING HORMONE 7.31 uIU/mL (0.36-3.74)
[2020-01-25 20:03] LABS: UDS - AMPHET NEGATIVE QUAL (NEGATIVE); UDS - BARB NEGATIVE QUAL (NEGATIVE); UDS - BENZO NEGATIVE QUAL (NEGATIVE); UDS - COCAINE NEGATIVE QUAL (NEGATIVE); UDS - OPIATE NEGATIVE QUAL (NEGATIVE); UDS - PCP NEGATIVE QUAL (NEGATIVE); UDS - THC NEGATIVE QUAL (NEGATIVE)
[2020-01-25 20:07] LABS: BILIRUBIN NEGATIVE (NEGATIVE); GLUCOSE NEGATIVE (NEGATIVE); KETONE LARGE mg/dL (NEGATIVE); NITRITE NEGATIVE (NEGATIVE); SPECIFIC GRAVITY 1.025 (1.005-1.020); UROBILINOGEN NORMAL (NORMAL)
--- NOTE | 2020-01-25 21:10 | NUR ---
CONFUSED AND THINKS PT IS GOING TO INTERMEDIATE [facility] PT CONCERNED ABOUT BEING STONED.
[2020-01-25 21:12] VITALS: BP 182/88
[2020-01-25 22:32] VITALS: BP 118/62
--- NOTE | 2020-01-26 00:39 | NUR ---
RECEIVED PATIENT TO ROOM 2136 VIA STRETCHER.
--- NOTE | 2020-01-26 00:40 | NUR ---
(ARISTIDES SANABRIA) NUMBER [phone] DAUGHTER (ELIO RUTLEDGE) NUMBER [phone]
--- NOTE | 2020-01-26 00:49 | NUR ---
I have reviewed this patient and I concur with the Shift Assessment completed by the Licensed Practical Nurse today this shift.
[2020-01-26 00:56] VITALS: BP 143/72
--- NOTE | 2020-01-26 01:16 | NUR ---
ADULT HX, MED REC, SRS, FIRST CONTACT ALL COMPLETED.
--- NOTE | 2020-01-26 03:46 | NUR ---
PATIENT CAD APPLICATION SUPPORT SPECIALIST LIGHT TO USE THE BATHROOM, CATALOGUE MAKER IN ROOM.
[2020-01-26 04:52] VITALS: BP 153/67
[2020-01-26 05:09] LABS: BASOPHILS 0.5 % (0-2); EOSINOPHILS 4.9 % (0-7); HEMATOCRIT 38.3 % (36.0-48.0); HEMOGLOBIN 11.7 g/dL (12-16); IMMATURE GRANULOCYTES 0.2 % (0-5); LYMPHOCYTES 18.3 % (15-50); MCHC 30.5 g/dL (31.0-37.0); MCV 101.3 fL (80.0-100.0); MEAN PLATELET VOLUME 9.5 fL (7.4-10.4); MONOCYTES 7.4 % (2-11); NEUTROPHILS 68.7 % (40-80); RBC 3.78 10x6/uL (4.00-5.40); RDW 14.7 % (11.5-14.5); WBC 6.4 10x3/uL (4.8-10.8)
[2020-01-26 05:19] LABS: PLATELET COUNT 207 10x3/uL (130-400)
[2020-01-26 05:38] LABS: ALKALINE PHOSPHATASE 105 U/L (30-120); ALT (SGPT) 25 U/L (10-68); BILIRUBIN - TOTAL 0.57 mg/dL (0.2-1.3); CALC OSMOLALITY 279 mosm/kg (275-300); CALCIUM 8.3 mg/dL (8.5-10.1); CARBON DIOXIDE 24.2 mmol/L (21.0-32.0); CHLORIDE - SERUM 105 mmol/L (98-107); CKMB 1.3 U/L (0.0-3.6); CREATINE KINASE 196 UL (21-215); CREATININE - SERUM 0.9 mg/dL (0.6-1.3); GLUCOSE 81 mg/dL (74-106); MAGNESIUM - SERUM 1.8 mg/dL (1.8-2.4); PHOSPHOROUS 3.7 mg/dL (2.5-4.9); PROTEIN - SERUM 6.2 g/dL (6.4-8.2); SODIUM 141 mmol/L (136-145); T4 THYROXIN - FREE 1.41 ng/dL (0.76-1.46); UREA NITROGEN 12 mg/dL (7-18); eGFR NON AFRICAN AMERICAN 67 mL/min (90-120)
[2020-01-26 05:45] LABS: POTASSIUM - SERUM 3.7 mmol/L (3.5-5.1); TROPONIN-I < 0.017 ng/mL (0.000-0.060)
[2020-01-26 05:47] LABS: APTT 23.1 SECONDS (22.8-39.4)
[2020-01-26 06:04] LABS: INR 10.83 (0.85-1.17); PROTIME 82.2 SECONDS (11.6-15.0)
--- NOTE | 2020-01-26 06:17 | NUR ---
LAB RESULTS RECEIVED PT 82.2 INR 10.83. RESULTS REPORT TO BHAVIN JAMES APN ORDERS RECEIVED.
[2020-01-26 06:28] VITALS: BMI 35.0
[2020-01-26 08:58] VITALS: BP 165/68
[2020-01-26 12:56] VITALS: Ht 152.4 cm; Wt 81.2 kg
--- NOTE | 2020-01-26 12:59 | NUR ---
I have reviewed this patient and I concur with the Shift Assessment completed by the Licensed Practical Nurse today this shift.
[2020-01-26 13:21] VITALS: BP 152/76
[2020-01-26 13:48] LABS: APTT 31.9 SECONDS (22.8-39.4); INR 1.06 (0.85-1.17)
[2020-01-26 13:49] LABS: PROTIME 13.8 SECONDS (11.6-15.0)
--- NOTE | 2020-01-26 18:42 | NUR ---
OT NOTE: PT COMPLETED SUPINE TO SIT WITH CGA. PT COMPLETED EOB SITTING WITH CGA. PT COMPLETED FACE HYGIENE WITH SETUP. PT REQUIRED CONSTANT CUES OF SAFETY. [phone] THANK YOU,THAO BLAKE
[2020-01-26 18:53] VITALS: BP 140/59
--- NOTE | 2020-01-26 19:30 | NUR ---
PT IN BED, AAO X 2, RESP EVEN AND UNLABORED. NO DISTRESS NOTED, CL IN REACH, SR UP X 2.
[2020-01-26 20:00] VITALS: BP 138/79
[2020-01-27] VITALS: BP 150/77
[2020-01-27 04:55] LABS: BASOPHILS 0.3 % (0-2); EOSINOPHILS 4.3 % (0-7); HEMATOCRIT 38.1 % (36.0-48.0); HEMOGLOBIN 11.6 g/dL (12-16); IMMATURE GRANULOCYTES 0.2 % (0-5); MCH 30.5 pg (26.0-34.0); MCHC 30.4 g/dL (31.0-37.0); MCV 100.3 fL (80.0-100.0); MEAN PLATELET VOLUME 9.2 fL (7.4-10.4); MONOCYTES 8.4 % (2-11); NEUTROPHILS 68.8 % (40-80); PLATELET COUNT 206 10x3/uL (130-400); RDW 14.7 % (11.5-14.5); WBC 6.2 10x3/uL (4.8-10.8)
[2020-01-27 05:15] LABS: ALBUMIN 2.8 g/dL (3.4-5.0); ALKALINE PHOSPHATASE 103 U/L (30-120); BILIRUBIN - TOTAL 0.54 mg/dL (0.2-1.3); CALCIUM 8.4 mg/dL (8.5-10.1); CARBON DIOXIDE 20.3 mmol/L (21.0-32.0); CHLORIDE - SERUM 103 mmol/L (98-107); CREATININE - SERUM 0.8 mg/dL (0.6-1.3); GLUCOSE 71 mg/dL (74-106); MAGNESIUM - SERUM 1.6 mg/dL (1.8-2.4); POTASSIUM - SERUM 3.7 mmol/L (3.5-5.1); PROTEIN - SERUM 6.1 g/dL (6.4-8.2); SODIUM 139 mmol/L (136-145); eGFR NON AFRICAN AMERICAN 77 mL/min (90-120)
[2020-01-27 05:19] LABS: ALT (SGPT) 18 U/L (10-68); CALC OSMOLALITY 273 mosm/kg (275-300); UREA NITROGEN 8 mg/dL (7-18)
--- NOTE | 2020-01-27 08:25 | MORECARE ---
CASE MANAGEMENT DISCHARGE SUMMARY PATIENT: CARMELO LISA UNIT: [id number] ADM DATE: 01/25/20 AGE: 59 : 56 SEX: F ROOM/BED: D.0906 AUTHOR: KENDALL ROBLEDO PHYSICIAN: REFERRING PHYSICIAN: JOSE ARMANDO ABDUL DO DATE OF SERVICE: 01/27/20 Discharge Plan Patient Name: CARMELO LISA Facility: [facility]:[place] : 1960 Planned Disposition: Inpatient Psych Facility Anticipated Discharge Date: Discharge Date: Expected LOS: Initial Reviewer: [id number] Initial Review Date: 01/26/2020 Generated: 01/27/20 9:25 am External Providers External Provider: [employer] Next Contact Date: Service Request Date: Service Type: Resolution: Reviewer: Comments: Coverage Notice Reviewer: [id number] Jazmyne Tripathi Notice Issued Date-Time: 01/26/2020 13:30 Notice Type: Medicare Outpatient Observation Notice Notice Delivered To: Family Member Relationship to Patient: Spouse Telecom Network Manager Name: YOGESH LISA Delivery Method: PHONE - Phone Marie Days: Prior Verbal Notification: Yes Recipient Understood Notice: Yes Recipient Signature: Med Rec Note Co-signed by Attending: Coverage Notice Comment: hawkins explained via phone to Yogesh Lisa ( ) who verbalized understanding. HAWKINS will be sent by certified mail with return receipt requested. Patient Name: CARMELO LISA Page [phone] at 0825 All edits/amendments must be made on the electronic document DICTATION DATE: 01/27/20824 WEIGHER PRODUCTION: PATSY 01/27/20824 RPT#: [id number] DC DATE: STATUS: ADM IN [facility] [address] [place] [address] END OF REPORT
[2020-01-27 09:32] VITALS: BP 164/80
--- NOTE | 2020-01-27 13:11 | NUR ---
PT CURRENTLY HAVING AUDITORY AND VISUAL HALLUCINATIONS STATING THAT THERE ARE PEOPLE TALKING IN HER ROOM ABOUT HER GRANDDAUGHTER AND REVERSING HER WITH HER GRANDDAUGHTER. ATTEMPTED TO REORIENT PATIENT. WILL VALENTINE.
--- NOTE | 2020-01-27 13:33 | NUR ---
I have reviewed this patient and I concur with the Shift Assessment completed by the Licensed Practical Nurse today this shift.
[2020-01-27 13:39] VITALS: BP 163/72
--- NOTE | 2020-01-27 14:44 | CN ---
PATIENT NAME:CARMELO SANABRIA MEDICAL RECORD: [id number] : 56 LOCATION:D. D.2136 ADMIT DATE: 01/25/20 ACCOUNT: [id number] CONSULTING PHYSICIAN: MITCH EDDY MD REFERRING PHYSICIAN: JOSE ARMANDO ABDUL DO DATE OF CONSULTATION: 01/26/2020 PSYCHIATRIC CONSULTATION IDENTIFYING DATA: The patient is 59 years old and she is admitted to the hospital on a voluntary basis. CHIEF COMPLAINT: Confusion. HISTORY OF PRESENT ILLNESS: The patient was brought to the hospital after having a heart surgery 3 weeks ago. For several days, she has been declining food and water and is delusional, thinking she is going to go to long term. She would not interact with the staff, but she does talk to me, although she is speaking so low, I have to hold my ear 6 inches from her face to understand the very low whisper that she speaks in. She tells me that she saw on television where a group of black and white people were fighting and throwing rocks at each other and that she was not involved, but she believes she is going to be arrested. She says she is taking her medicine and that no one asked her to wear a heart monitor that contradicts information in the medical record. She denies that she would seek to harm herself or others. She denies active hallucinations. ASSESSMENT: Major depression, single episode, severe with psychotic features. PLAN: The patient is psychotic and severely depressed. Although not actively suicidal, I think she needs confinement to inpatient psychiatric unit. She says she wants to just go and be with her daughter and granddaughter who live in [place]. I am going to start her on an antipsychotic and antidepressant medication. She is not capable of being independent and unsupervised at this time. I do not know the details about her psychosocial situation at this point. I asked her repeatedly about living alone or if she lived alone and could not get a clear answer. The face sheet says that she is ; however, when asked about her address in [place], she says she lives in [place], but cannot tell me where. She is clearly confused. I think this is all secondary to her depressive situation and the psychotic symptoms are associated with that. She denies that she abuses drugs or alcohol and her urine drug screen is negative. Her thyroid stimulating hormone is elevated indicating medication noncompliance, but I do not believe that the hypothyroid state that she is in is a significant contributor to her current mental status. My recommendation is inpatient psychiatric care and if she is unwilling to do that, then she certainly needs someone who will be responsible for her and provide 51-ezqn-g-day supervision while she is taking medications. She will also need psychiatric followup once discharged. TRANSINT:[id number] Voice Confirmation ID: [id number] DOCUMENT ID: [id number] CONSULT REPORT [id number] CARMELO SANABRIA PETER MD at 1444 CC: [id number] DICTATION DATE: 01/26/20 1546 SOFTWARE CONFIGURATION SPECIALIST: 01/26/20 1555 ADM IN [facility] [id number] [place] [address]
--- NOTE | 2020-01-27 14:51 | MORECARE ---
CASE MANAGEMENT DISCHARGE SUMMARY PATIENT: CARMELO LISA UNIT: [id number] ADM DATE: 01/25/20 AGE: 59 : 56 SEX: F ROOM/BED: D.8586 AUTHOR: KENDALL ROBLEDO PHYSICIAN: REFERRING PHYSICIAN: JOSE ARMANDO ABDUL DO DATE OF SERVICE: 01/27/20 Discharge Plan Patient Name: CARMELO LISA Facility: [facility]:[place] : 1960 Planned Disposition: Inpatient Psych Facility Anticipated Discharge Date: Discharge Date: Expected LOS: Initial Reviewer: [id number] Initial Review Date: 01/26/2020 Generated: 01/27/20 3:51 pm External Providers External Provider: OTHER-OTHER Next Contact Date: Service Request Date: Service Type: Resolution: Reviewer: Comments: Coverage Notice Reviewer: [id number] Jazmyne Tripathi Notice Issued Date-Time: 01/26/2020 13:30 Notice Type: Medicare Outpatient Observation Notice Notice Delivered To: Family Member Relationship to Patient: Spouse Food Operations Manager Name: YOGESH LISA Delivery Method: PHONE - Phone Marie Days: Prior Verbal Notification: Yes Recipient Understood Notice: Yes Recipient Signature: Med Rec Note Co-signed by Attending: Coverage Notice Comment: hawkins explained via phone to Yogesh Lisa ( ) who verbalized understanding. HAWKINS will be sent by certified mail with return receipt requested. Last DP export: 01/27/20 7:25 a Patient Name: CARMELO LISA Page [phone] at 1451 All edits/amendments must be made on the electronic document DICTATION DATE: 01/27/20 1451 FLATWORK SUPERVISOR: PATSY 01/27/20 1451 RPT#: [id number] DC DATE: STATUS: ADM IN [facility] [address] [place] [address] END OF REPORT
--- NOTE | 2020-01-27 15:20 | NUR ---
OT NOTE: PT REMAINS VERY CONFUSED. PT SITTING ON BED IN A STUPOR.. STATES THAT SHE IS CONFUSED AND DOESNT KNOW WHATS GOING ON. SHE IS ORIENTED TO SELF AND PLACE. ATTEMPTED TO ASSIST PT WITH FEEDING, HOWEVER, SHE REFUSED.. BED MOB WITH MIN ASSIST. FREQ REDIRECTION TO TASK REQUIRED; SLOW PROCESSING. GREG PORTILLO, OTR/L 110-126
[2020-01-27 16:00] VITALS: BP 178/88
--- NOTE | 2020-01-27 16:32 | MORECARE ---
CASE MANAGEMENT DISCHARGE SUMMARY PATIENT: CARMELO LISA UNIT: [id number] ADM DATE: 01/25/20 AGE: 59 : 56 SEX: F ROOM/BED: D.2136 AUTHOR: KENDALL ROBLEDO PHYSICIAN: REFERRING PHYSICIAN: JOSE ARMANDO ABDUL DO DATE OF SERVICE: 01/27/20 Discharge Plan Patient Name: CARMELO LISA Facility: [facility]:[place] : 1960 Planned Disposition: Inpatient Psych Facility Anticipated Discharge Date: Discharge Date: Expected LOS: Initial Reviewer: [id number] Initial Review Date: 01/26/2020 Generated: 01/27/20 5:31 pm DCPIA - Discharge Planning Initial Assessment Updated by [id number]: Stacy Tripathi on 01/27/20 4:29 pm * Is the patient Alert and Oriented? No * How many steps to enter\exit or inside your home? 8/0 * PCP DR MITCHELL * Pharmacy [facility] * Preadmission Environment Home with Family * ADLs Independent * Equipment Bedside Commode Walker * List name and contact numbers for known caregivers / representatives who currently or will assist patient after discharge: YOGESH LISA (SPOUSE) [phone] ELIO (DTR) [phone] * Verbal permission to speak to the caregivers and representatives has been obtained from the patient. N/A * Community resources currently utilized None * Additional services required to return to the preadmission environment? No * Can the patient safely return to the preadmission environment? No * Has this patient been hospitalized within the prior 30 days at any hospital? Yes Coverage Notice Reviewer: [id number] - Stacy Tripathi Notice Issued Date-Time: 01/26/2020 13:30 Notice Type: Medicare Outpatient Observation Notice Notice Delivered To: Family Member Relationship to Patient: Spouse Associate Brand Manager Name: YOGESH LISA Delivery Method: PHONE - Phone Marie Days: Prior Verbal Notification: Yes Recipient Understood Notice: Yes Recipient Signature: Med Rec Note Co-signed by Attending: Coverage Notice Comment: hawkins explained via phone to Yogesh Lisa ( ) who verbalized understanding. HAWKINS will be sent by certified mail with return receipt requested. Last DP export: 01/27/20 1:51 p Patient Name: CARMELO LISA Page [phone] at 1632 All edits/amendments must be made on the electronic document DICTATION DATE: 01/27/201630 MOTORCYCLE MAKER: PATSY 01/27/201630 RPT#: [id number] DC DATE: STATUS: ADM IN [facility] [address] [place] [address] END OF REPORT
--- NOTE | 2020-01-27 17:00 | MORECARE ---
CASE MANAGEMENT DISCHARGE SUMMARY PATIENT: CARMELO LISA UNIT: [id number] ADM DATE: 01/25/20 AGE: 59 : 56 SEX: F ROOM/BED: D.8712 AUTHOR: KENDALL ROBLEDO PHYSICIAN: REFERRING PHYSICIAN: JOSE ARMANDO ABDUL DO DATE OF SERVICE: 01/27/20 Discharge Plan Patient Name: CARMELO LISA Facility: [facility]:[place] : 1960 Planned Disposition: Inpatient Psych Facility Anticipated Discharge Date: Discharge Date: Expected LOS: Initial Reviewer: [id number] Initial Review Date: 01/26/2020 Generated: 01/27/20 5:59 pm Comments DCP- Discharge Planning Updated by [email or web address]: Stacy Tripathi on 01/27/20 3:[address] Patient Name: CARMELO LISA Admission Status: ER Accout number: [id number] Admission Date: 01-25-2020 : 1960 Admission Diagnosis: Attending: JOSE ARMANDO ABDUL Current LOS: 2 Anticipated DC Date: Planned Disposition: Inpatient Psych Facility Primary Insurance: [employer] ADV Discharge Planning Comments: LATE ENTRY 01/26/2020 CM met with patient to complete initial dc planning assessment. Pt soft spoken and confused. States she lives in [place] at "that place," but would like to live with her dtr. Pt unsure of her dtr's name. Asked about her spouse, but this CM was not able to understand the patient's response. Mouthing words were coming out of mouth, but without sound. CM called listed caregiver Yogesh (). Yogesh spoke in-depth about the past mental state of the patient. "States she has had these spells before, and refuses to take her medication. She stopped eating, is paranoid, and rejected me. Stated this all started after she had her last heart stent. She began watching the news, and got herself all worked up about this virus. She [facility]." Yogesh was instructed by the CORE STACKER from house calls, Rosaline, who instructed to have the pt seen by ED. CM educated patient on the CM role CM verified patient's address, phone number, and emergency contact phone numbers. Patient lives at home with Yogesh [phone]. The pt dtr Jing can be reached at [phone]. The physical address is [address] [place] [address]. [place], [address]. Yogesh expresses wishes to have the patient seen in a mental health facility. CM provided plan to assist with placement. CM will continue to follow and will assist as needed with dc plans/needs. JENNI discussed with Larry. Zuñiga verbalized understanding. Will send by certified mail with request for signature. Sheep Sticker: Stacy Tripathi MSN,RN,CM DCPIA - Discharge Planning Initial Assessment Updated by [email or web address]: Stacy Tripathi on 01/27/20 4:29 pm * Is the patient Alert and Oriented? No * How many steps to enter\\exit or inside your home? 8/0 * PCP DR MITCHELL * Pharmacy [facility] * Preadmission Environment Home with Family * ADLs Independent * Equipment Bedside Commode Walker * List name and contact numbers for known caregivers / representatives who currently or will assist patient after discharge: YOGESH LISA (SPOUSE) [phone] JING (DTR) [phone] * Verbal permission to speak to the caregivers and representatives has been obtained from the patient. N/A * Community resources currently utilized None * Additional services required to return to the preadmission environment? No * Can the patient safely return to the preadmission environment? No * Has this patient been hospitalized within the prior 30 days at any hospital? Yes Coverage Notice Reviewer: [id number] - Stacy Tripathi Notice Issued Date-Time: 01/26/2020 13:30 Notice Type: Medicare Outpatient Observation Notice Notice Delivered To: Family Member Relationship to Patient: Spouse Land Surveyor Manager Name: YOGESH LISA Delivery Method: PHONE - Phone Marie Days: Prior Verbal Notification: Yes Recipient Understood Notice: Yes Recipient Signature: Med Rec Note Co-signed by Attending: Coverage Notice Comment: hawkins explained via phone to Yogesh Lisa ( ) who verbalized understanding. HAWKINS will be sent by certified mail with return receipt requested. Last DP export: 01/27/20 3:31 p Patient Name: CARMELO LISA Page 43054 at 1700 All edits/amendments must be made on the electronic document DICTATION DATE: 01/27/201658 CLINIC CMA: PATSY 01/27/201658 [facility]#: [id number] DC DATE: STATUS: ADM IN [facility] [address] [place] [address] END OF REPORT
--- NOTE | 2020-01-27 17:06 | MORECARE ---
CASE MANAGEMENT DISCHARGE SUMMARY PATIENT: CARMELO LISA UNIT: [id number] ADM DATE: 01/25/20 AGE: 59 : 56 SEX: F ROOM/BED: D.8607 AUTHOR: KENDALL ROBLEDO PHYSICIAN: REFERRING PHYSICIAN: JOSE ARMANDO ABDUL DO DATE OF SERVICE: 01/27/20 Discharge Plan Patient Name: CARMELO LISA Facility: [facility]:[place] : 1960 Planned Disposition: Inpatient Psych Facility Anticipated Discharge Date: Discharge Date: Expected LOS: Initial Reviewer: [id number] Initial Review Date: 01/26/2020 Generated: 01/27/20 6:06 pm Comments DCP- Discharge Planning Updated by [id number]: Stacy Tripathi on 01/27/20 3:[address] Patient Name: CARMELO LISA Admission Status: ER Accout number: [id number] Admission Date: 01-25-2020 : 1960 Admission Diagnosis: Attending: JOSE ARMANDO ABDUL Current LOS: 2 Anticipated DC Date: Planned Disposition: Inpatient Psych Facility Primary Insurance: [employer]ICARE ADV Discharge Planning Comments: LATE ENTRY 01/26/2020 CM met with patient to complete initial dc planning assessment. Pt soft spoken and confused. States she lives in [place] at "that place," but would like to live with her dtr. Pt unsure of her dtr's name. Asked about her spouse, but this CM was not able to understand the patient's response. Mouthing words were coming out of mouth, but without sound. CM called listed caregiver Yogesh (). Yogesh spoke in-depth about the past mental state of the patient. "States she has had these spells before, and refuses to take her medication. She stopped eating, is paranoid, and rejected me. Stated this all started after she had her last heart stent. She began watching the news, and got herself all worked up about this virus. She thinks she is going to custodial." Yogesh was instructed by the SNACK STEWARD from house calls, Rosaline, who instructed to have the pt seen by ED. CM educated patient on the CM role CM verified patient's address, phone number, and emergency contact phone numbers. Patient lives at home with Yogesh [phone]. The pt dtr Jing can be reached at [phone]. The physical address is [address] [place] [address]. [place], [address]. Yogesh expresses wishes to have the patient seen in a mental health facility. CM provided plan to assist with placement. CM will continue to follow and will assist as needed with dc plans/needs. JENNI discussed with Larry. Zuñiga verbalized understanding. Will send by certified mail with request for signature. Irrigator Overhead: Stacy Tripathi MSN,RN,CM DCPIA - Discharge Planning Initial Assessment Updated by [email or web address]: Stacy Tripathi on 01/27/20 4:29 pm * Is the patient Alert and Oriented? No * How many steps to enter\\exit or inside your home? 8/0 * PCP DR MITCHELL * Pharmacy [facility] * Preadmission Environment Home with Family * ADLs Independent * Equipment Bedside Commode Walker * List name and contact numbers for known caregivers / representatives who currently or will assist patient after discharge: YOGESH LISA (SPOUSE) [phone] JING (DTR) [phone] * Verbal permission to speak to the caregivers and representatives has been obtained from the patient. N/A * Community resources currently utilized None * Additional services required to return to the preadmission environment? No * Can the patient safely return to the preadmission environment? No * Has this patient been hospitalized within the prior 30 days at any hospital? Yes Coverage Notice Reviewer: [id number] - Stacy Tripathi Notice Issued Date-Time: 01/26/2020 13:30 Notice Type: Medicare Outpatient Observation Notice Notice Delivered To: Family Member Relationship to Patient: Spouse Launderette Attendant Name: YOGESH LISA Delivery Method: PHONE - Phone Marie Days: Prior Verbal Notification: Yes Recipient Understood Notice: Yes Recipient Signature: Med Rec Note Co-signed by Attending: Coverage Notice Comment: hawkins explained via phone to Yogesh Lisa ( ) who verbalized understanding. HAWKINS will be sent by certified mail with return receipt requested. Last DP export: 01/27/20 4:00 p Patient Name: CARMELO LISA Page [phone] at 1706 All edits/amendments must be made on the electronic document DICTATION DATE: 01/27/201705 AQUATIC DIRECTOR: PATSY 01/27/201705 RPT#: [id number] DC DATE: STATUS: ADM IN [facility] [address] [place] [address] END OF REPORT
[2020-01-27] MEDS ORDERED: PERPHENAZINE2 MG PO (17:18)
[2020-01-27] MEDS ORDERED: EFFEXOR37.5 MG PO (17:18)
--- NOTE | 2020-01-27 18:18 | MORECARE ---
CASE MANAGEMENT DISCHARGE SUMMARY PATIENT: CARMELO LISA UNIT: [id number] ADM DATE: 01/25/20 AGE: 59 : 56 SEX: F ROOM/BED: D.1241 AUTHOR: KENDALL ROBLEDO PHYSICIAN: REFERRING PHYSICIAN: JOSE ARMANDO ABDUL DO DATE OF SERVICE: 01/27/20 Discharge Plan Patient Name: CARMELO LISA Facility: [facility]:[place] : 1960 Planned Disposition: Inpatient Psych Facility Anticipated Discharge Date: 01/27/20 Discharge Date: Expected LOS: 2 Initial Reviewer: [email or web address] Initial Review Date: 01/26/2020 Generated: 01/27/20 7:18 pm Comments DCP- Discharge Planning Updated by [id number]: Nadiya Horton on 01/27/20 5:[address] Karina, with [facility] has accepted patient, to transfer to their [facility] facility today. Patient will transport via ambulance. Qamar Fink APRN has been notified. DCP- Discharge Planning Updated by [email or web address]: Stacy Tripathi on 01/27/20 3:[address] Patient Name: CARMEOL LISA Admission Status: ER Accout number: [id number] Admission Date: 01-25-2020 : 1960 Admission Diagnosis: Attending: JOSE ARMANDO ABDUL Current LOS: 2 Anticipated DC Date: Planned Disposition: Inpatient Psych Facility Primary Insurance: [employer] MEDICARE ADV Discharge Planning Comments: LATE ENTRY 01/26/2020 CM met with patient to complete initial dc planning assessment. Pt soft spoken and confused. States she lives in [place] at "that place," but would like to live with her dtr. Pt unsure of her dtr's name. Asked about her spouse, but this CM was not able to understand the patient's response. Mouthing words were coming out of mouth, but without sound. CM called listed caregiver Yogesh (). Yogesh spoke in-depth about the past mental state of the patient. "States she has had these spells before, and refuses to take her medication. She stopped eating, is paranoid, and rejected me. Stated this all started after she had her last heart stent. She began watching the news, and got herself all worked up about this virus. She [facility]." Yogesh was instructed by the IRISH MOSS GATHERER from Rosaline martinez, who instructed to have the pt seen by ED. CM educated patient on the CM role CM verified patient's address, phone number, and emergency contact phone numbers. Patient lives at home with Yogesh [phone]. The pt dtr Jing can be reached at [phone]. The [address] is [address] [place] [address], [address]. Yogesh expresses wishes to have the patient seen in a mental health facility. CM provided plan to assist with placement. CM will continue to follow and will assist as needed with dc plans/needs. SHRUTHI discussed with Yogesh. Yogesh verbalized understanding. Will send by certified mail with request for signature. Marker Machine: Stacy Tripathi MSN,RN,CM DCPIA - Discharge Planning Initial Assessment Updated by [email or web address]: Stacy Tripathi on 01/27/20 4:29 pm * Is the patient Alert and Oriented? No * How many steps to enter\\exit or inside your home? 8/0 * PCP DR MITCHELL * Pharmacy [facility] * Preadmission Environment Home with Family * ADLs Independent * Equipment Bedside Commode Walker * List name and contact numbers for known caregivers / representatives who currently or will assist patient after discharge: YOGESH LISA (SPOUSE) [phone] JING (DTR) [phone] * Verbal permission to speak to the caregivers and representatives has been obtained from the patient. N/A * Community resources currently utilized None * Additional services required to return to the preadmission environment? No * Can the patient safely return to the preadmission environment? No * Has this patient been hospitalized within the prior 30 days at any hospital? Yes Coverage Notice Reviewer: [id number] - Stacy Tripathi Notice Issued Date-Time: 01/26/2020 13:30 Notice Type: Medicare Outpatient Observation Notice Notice Delivered To: Family Member Relationship to Patient: Spouse Drug Coordinator Name: YOGESH LISA Delivery Method: PHONE - Phone Marie Days: Prior Verbal Notification: Yes Recipient Understood Notice: Yes Recipient Signature: Med Rec Note Co-signed by Attending: Coverage Notice Comment: shruthi explained via phone to Yogesh Lisa ( ) who verbalized understanding. ARTEAGA will be sent by certified mail with return receipt requested. Last DP export: 01/27/20 4:06 p Patient Name: CARMELO LISA Page 48483 at 1818 All edits/amendments must be made on the electronic document DICTATION DATE: 01/27/201817 BOILER ENGINEER: PATSY 01/27/201817 RPT#: [id number] DC DATE: STATUS: ADM IN [facility] [address] [place] [address] END OF REPORT
--- NOTE | 2020-01-27 18:37 | NUR ---
REPORT CALLED TO GREG GOLDMAN RN AT [facility]. PT REFUSES TO SIGN DISCHARGE PAPERWORK AND TRANSFER FORM SAYING SHE IS GOING TO ALF. ATTEMPTED TO REORIENT PATIENT WITH NO SUCCESS. [facility] CALLED. WILL CTM.
--- NOTE | 2020-01-27 19:45 | NUR ---
PT TRANSFERRED TO [facility] UNIT AT THIS TIME.
--- NOTE | 2020-01-28 08:44 | MORECARE ---
CASE MANAGEMENT DISCHARGE SUMMARY PATIENT: CARMELO LISA UNIT: [id number] ADM DATE: 01/25/20 AGE: 59 : 56 SEX: F ROOM/BED: D.1608 AUTHOR: KENDALL ROBLEDO PHYSICIAN: REFERRING PHYSICIAN: JOSE ARMANDO ABDUL DO DATE OF SERVICE: 01/28/20 Discharge Plan Patient Name: CARMELO LISA Facility: [facility]:[place] : 1960 Planned Disposition: Inpatient Psych Facility Anticipated Discharge Date: 01/27/20 Discharge Date: 01/27/2020 Expected LOS: 2 Initial Reviewer: [email or web address] Initial Review Date: 01/26/2020 Generated: 01/28/20 9:44 am Comments DCP- Discharge Planning Updated by [email or web address]: Nadiya Horton on 01/27/20 5:[address] Karina, with [facility] has accepted patient, to transfer to their [facility] facility today. Patient will transport via ambulance. Qamar Fink APRN has been notified. DCP- Discharge Planning Updated by [email or web address]: Stacy Tripathi on 01/27/20 3:[address] Patient Name: CARMELO LISA Admission Status: ER Accout number: [id number] Admission Date: 01-25-2020 : 1960 Admission Diagnosis: Attending: JOSE ARMANDO ABDUL Current LOS: 2 Anticipated DC Date: Planned Disposition: Inpatient Psych Facility Primary Insurance: [employer] ADV Discharge Planning Comments: LATE ENTRY 01/26/2020 CM met with patient to complete initial dc planning assessment. Pt soft spoken and confused. States she lives in [place] at "that place," but would like to live with her dtr. Pt unsure of her dtr's name. Asked about her spouse, but this CM was not able to understand the patient's response. Mouthing words were coming out of mouth, but without sound. CM called listed caregiver Yogesh (). Yogesh spoke in-depth about the past mental state of the patient. "States she has had these spells before, and refuses to take her medication. She stopped eating, is paranoid, and rejected me. Stated this all started after she had her last heart stent. She began watching the news, and got herself all worked up about this virus. She thinks she is going to shelter." Yogesh was instructed by the WHITE SOURER from [facility], who instructed to have the pt seen by ED. CM educated patient on the CM role CM verified patient's address, phone number, and emergency contact phone numbers. Patient lives at home with Yogesh [phone]. The pt dtr Jing can be reached at [phone]. The physical [address] is [address] [place] [address], [address]. Yogesh expresses wishes to have the patient seen in a mental health facility. CM provided plan to assist with placement. CM will continue to follow and will assist as needed with dc plans/needs. SHRUTHI discussed with Yogesh. Yogesh verbalized understanding. Will send by certified mail with request for signature. Associate Chemist: Stacy Tripathi MSN,RN,CM DCPIA - Discharge Planning Initial Assessment Updated by [email or web address]: Stacy Tripathi on 01/27/20 4:29 pm * Is the patient Alert and Oriented? No * How many steps to enter\\exit or inside your home? 8/0 * PCP DR MITCHELL * Pharmacy [facility] * Preadmission Environment Home with Family * ADLs Independent * Equipment Bedside Commode Walker * List name and contact numbers for known caregivers / representatives who currently or will assist patient after discharge: YOGESH LISA (SPOUSE) [phone] JING (DTR) [phone] * Verbal permission to speak to the caregivers and representatives has been obtained from the patient. N/A * Community resources currently utilized None * Additional services required to return to the preadmission environment? No * Can the patient safely return to the preadmission environment? No * Has this patient been hospitalized within the prior 30 days at any hospital? Yes Coverage Notice Reviewer: [id number] - Stacy Tripathi Notice Issued Date-Time: 01/26/2020 13:30 Notice Type: Medicare Outpatient Observation Notice Notice Delivered To: Family Member Relationship to Patient: Spouse Sample Shoe Inspector And Reworker Name: YOGESH LISA Delivery Method: PHONE - Phone Marie Days: Prior Verbal Notification: Yes Recipient Understood Notice: Yes Recipient Signature: Med Rec Note Co-signed by Attending: Coverage Notice Comment: shruthi explained via phone to Yogesh Lisa ( ) who verbalized understanding. ARTEAGA will be sent by certified mail with return receipt requested. Last DP export: 01/27/20 5:18 p Patient Name: CARMELO LISA Page [id number] at 0844 All edits/amendments must be made on the electronic document DICTATION DATE: 01/28/2044 DEPUTY REGISTER OF DEEDS: PATSY 01/28/2044 RPT#: [id number] DC DATE:01/27/20 STATUS: DIS IN [facility] [address] [place] [address] END OF REPORT
== END 2020-01-27 19:45 ==
LOC: D.ER 16:35 → D.M2 23:11 → OBSVTIME 23:11 → D.M2 01-26 00:52
PROVIDERS: Family Medicine; ADMIT Family Medicine; ATTEND Family Medicine
DX: G93.41 Metabolic encephalopathy (principal); E78.5 Hyperlipidemia, unspecified; F41.8 Other specified anxiety disorders; K21.9 Gastro-esophageal reflux disease without esophagitis; I10 Essential (primary) hypertension; E03.9 Hypothyroidism, unspecified; I25.10 Atherosclerotic heart disease of native coronary artery without angina pectoris

== ENCOUNTER 2020-05-09 18:30 | Outpatient (CLI) | payer MEDICARE ==
[2020-01-26 12:56] VITALS: BMI 34.9
[~2020-05-09 18:30] MED LIST changes: +EFFEXOR37.5 MG PO; +PERPHENAZINE2 MG PO
== END 2020-05-09 23:59 | disposition home or self-care (01) ==
LOC: D.MAMMO 18:30
PROVIDERS: ATTEND Nurse Practitioner Family
DX: N64.4 Mastodynia (principal)

== ENCOUNTER → 2020-06-06 15:23 | Outpatient (CLI) | payer MEDICARE ==
[2020-01-26 12:56] VITALS: BMI 34.9
[~2020-06-06 15:23] MED LIST changes: +MECLIZINE HCL12.5 MG; +PROTONIX40 MG PO
== END | disposition home or self-care (01) ==
LOC: D.RAD 15:23
PROVIDERS: ATTEND Thoracic Surgery (Cardiothoracic Vascular Surgery)
DX: R07.2 Precordial pain (principal)

== ENCOUNTER 2020-06-12 07:21 | Day surgery (SDC) | payer MEDICARE ==
[~2020-06-12] VITALS: Ht 152.4 cm; Wt 77.6 kg
[2020-06-12 07:47] LABS: HEMATOCRIT 41.2 % (36.0-48.0); HEMOGLOBIN 13.2 g/dL (12-16); MCH 31.4 pg (26.0-34.0); MCV 97.9 fL (80.0-100.0); MEAN PLATELET VOLUME 8.5 fL (7.4-10.4); RBC 4.21 10x6/uL (4.00-5.40); RDW 14.7 % (11.5-14.5); WBC 6.9 10x3/uL (4.8-10.8)
[2020-06-12 07:57] LABS: ANION GAP 9.8 mmol/L (8-16); CALCIUM 8.8 mg/dL (8.5-10.1); POTASSIUM - SERUM 3.8 mmol/L (3.5-5.1)
[2020-06-12 08:19] LABS: INR 0.9 (0.85-1.17); PROTIME 12.1 SECONDS (11.6-15.0)
[2020-06-12] MEDS ORDERED: LISINOPRIL-HCT1 EAC7 PO (08:52)
[2020-06-12 08:54] VITALS: BP 157/71; BMI 33.4
[2020-06-12 13:11] VITALS: Ht 152.4 cm; Wt 77.6 kg
--- NOTE | 2020-06-12 14:40 | NUR ---
PATIENT AMBULATES TO BATHROOM AND VOIDS IN TOILET WITHOUT DIFFICULTY. AMBULATES WITHOUT UNSTEADINESS OR DIZZINESS. LEFT WRIST PIV DC'D WITH TIP INTACT. PATIENT DRESSING IN PERSONAL CLOTHING
--- NOTE | 2020-06-13 08:00 | OP ---
PATIENT NAME: CARMELO SANABRIA MEDICAL RECORD: [id number] :56 LOCATION:D.OPS ADMISSION DATE: SURGEON: LUCI ANGELO MD DATE OF OPERATION: 06/12/2020 SURGEON: Luci Angelo MD PROCEDURE: Removal of painful sternal wire and granulomatous scar tissue. POSTOPERATIVE DIAGNOSIS: Painful sternal wire. ANESTHESIA: General. FINDINGS: Dense reactive tissue above the lowest sternal wire; the bottom 2 sternal wires were removed. PROCEDURE IN DETAIL: With the patient under general anesthesia, the incision was made over the lower sternal wires. Dense scar tissue over this was excised and the lower 2 sternal wires were removed. Wound was closed with fascial layer, subcutaneous and subcuticular. The patient was stable to recovery. NTS:[id number] Voice Confirmation ID: [id number] DOCUMENT ID: [id number] LUCI ANGELO MD at 0800 CC: [id number] DICTATION DATE: 06/12/20 1410 ESTHETICIAN/SPA COORDINATOR: 06/12/20 2217 [facility] 06/12/20 [id number] [place] [address]
== END 2020-06-12 14:55 | disposition home or self-care (01) ==
LOC: D.OPS 07:21
PROVIDERS: ATTEND Thoracic Surgery (Cardiothoracic Vascular Surgery)
DX: T85.848A Pain due to other internal prosthetic devices, implants and grafts, initial encounter (principal); R07.89 Other chest pain

== ENCOUNTER → 2020-06-19 09:43 | Outpatient (CLI) | payer MEDICARE ==
[2020-06-12 13:11] VITALS: BMI 33.4
[~2020-06-19 09:43] MED LIST changes: +LISINOPRIL-HCT1 EAC7 PO
== END | disposition home or self-care (01) ==
LOC: D.RAD 09:43
PROVIDERS: ATTEND Thoracic Surgery (Cardiothoracic Vascular Surgery)
DX: Z98.890 Other specified postprocedural states (principal)